=== PATIENT | male | born 1930 | race Caucasian/White ===

== ENCOUNTER 2020-07-02 23:38 | Inpatient (IN) | payer MEDICARE ==
[2020-07-03 00:44] LABS: #Eosinphils 0.3 thou/uL (0.0-0.7); #Lymphocytes 1.3 thou/uL (1.20-3.40); #Monocytes 0.7 thou/uL (0.11-0.59); #Neutrophils 3.6 thou/uL (1.40-6.50); %Basophils 0.2 % (0.0-1.0); %Eosinophils 4.6 % (0.0-10.0); %Lymphocytes 22.5 % (21.0-51.0); %Monocytes 11.7 % (0.0-10.0); %Neutrophils 60.9 % (42.0-75.0); Hemoglobin 12.4 g/dL (14.0-18.0); Mean Corpuscular HGB CONC 32.5 g/dL (32.0-36.0); Mean Corpuscular Hemoglobin 30.9 pg (27.0-31.0); Mean Platelet Volume 7.8 fL (7.4-10.4); Platelet Count 159 thou/uL (130-400); Red Blood Cell (RBC) Count 4.02 mill/uL (4.70-6.10); White Blood Cell (WBC) Count 5.8 thou/uL (4.8-10.8)
[2020-07-03 00:50] LABS: INR-International Normal Ratio 1.2; PTT 27.7 sec (22.9-36.1); Prothrombin Time 15.1 sec (12.0-14.7)
[2020-07-03 01:09] LABS: ALT (SGPT) 157 U/L (8-55); AST (SGOT) 105 U/L (5-34); Albumin 3.4 g/dL (3.4-4.8); Alkaline Phosphatase 113 U/L (40-110); Anion Gap 13 mmol/L (10-20); BUN (Urea Nitrogen) 36 mg/dL (8.4-25.7); Bilirubin, Total 0.4 mg/dL (0.2-1.2); Calc. Creatinine Clearance 0 mL/min (70-130); Calcium 8.5 mg/dL (7.8-10.44); Carbon Dioxide 20 mmol/L (23-31); Chloride 111 mmol/L (98-107); Estimated GFR-MDRD 36; Globulin 2.6 g/dL (2.4-3.5); Glucose 95 mg/dL (83-110); Potassium 4.8 mmol/L (3.5-5.1); Sodium 139 mmol/L (136-145)
[2020-07-03 01:11] LABS: Acetaminophen Less than 6.0 mcg/mL (10.0-30.0); Alcohol Less than 10 mg/dL (Less than 10); CK (CPK) 143 U/L (30-200); Salicylate Less than 8.0 mg/dL (15.0-30.0)
--- NOTE | 2020-07-03 01:39 | PDOC.FPRHP ---
- History PMHx: PSHx: FHx: Social: - Vital signs BP: [] HR: [] RR: [] Tmax: [] Pox: []% on [] Wt: [] FMR H&P: Results - Labs Result Diagrams: 07/03/20 00:33 07/03/20 00:33 Lab results: WBC 5.8 thou/uL (4.8-10.8) 07/03/20 00:33 Hgb 12.4 g/dL (14.0-18.0) L 07/03/20 00:33 Hct 38.2 % (42.0-52.0) L 07/03/20 00:33 MCV 95.0 fL (78.0-98.0) 07/03/20 00:33 Plt Count 159 thou/uL (130-400) 07/03/20 00:33 Neutrophils % 60.9 % (42.0-75.0) 07/03/20 00:33 Sodium 139 mmol/L (136-145) 07/03/20 00:33 Potassium 4.8 mmol/L (3.5-5.1) 07/03/20 00:33 Chloride 111 mmol/L (98-107) H 07/03/20 00:33 Carbon Dioxide 20 mmol/L (23-31) L 07/03/20 00:33 BUN 36 mg/dL (8.4-25.7) H 07/03/20 00:33 Creatinine 1.80 mg/dL (0.7-1.3) H 07/03/20 00:33 Glucose 95 mg/dL (83-110) 07/03/20 00:33 Lactic Acid 0.9 mmol/L (0.5-2.2) 07/03/20 00:33 Calcium 8.5 mg/dL (7.8-10.44) 07/03/20 00:33 Total Bilirubin 0.4 mg/dL (0.2-1.2) 07/03/20 00:33 AST 105 U/L (5-34) H 07/03/20 00:33 ALT 157 U/L (8-55) H 07/03/20 00:33 Alkaline Phosphatase 113 U/L (40-110) H 07/03/20 00:33 Creatine Kinase 143 U/L (30-200) 07/03/20 00:33 Serum Total Protein 6.0 g/dL (5.8-8.1) 07/03/20 00:33 Albumin 3.4 g/dL (3.4-4.8) 07/03/20 00:33 FMR H&P: Upper Level - Plan Date/Time: 07/03/20 0139 I, [], have evaluated this patient and agree with findings/plan as outlined by psychology intern resident. Pertinent changes/additions are listed here.
[2020-07-03 01:42] LABS: CKMB 18.2 ng/mL (0-6.6)
[2020-07-03] MEDS ORDERED: Aspirin Chewable 81 MG TAB ONE (01:46)
[2020-07-03] MEDS ORDERED: Heparin 25,000 units/D5W 500 ML ONE (01:46)
[2020-07-03] MEDS ORDERED: Heparin 10,000 UNITS/ 10 ML VIAL ONE (01:54)
[2020-07-03] MEDS ORDERED: Morphine 2 MG/ML VIAL SLOW IVP PRN (03:43)
[2020-07-03] MEDS ORDERED: Nitroglycerin 0.4 MG TAB (25 Tab Bottle) SL PRN (03:43)
[2020-07-03] MEDS ORDERED: Acetaminophen 325 MG TAB PO PRN (03:43)
[2020-07-03] MEDS ORDERED: HYDROcodone/Acetaminophen 5/325 mg Tablet PO PRN (03:43)
[2020-07-03] MEDS ORDERED: Heparin 25,000 units/D5W 500 ML IVPB SCH (03:45)
--- NOTE | 2020-07-03 03:50 | PDOC.HHP ---
Hospitalist HPI - History of Present Illness syncope History of Present Illness: history is limited, patient was given to resident team initially, after a few hours transfer to me. ER doctor and nurse that saw patient not present at this time to give me report. patient is a poor historian Case of an 89-year-old male [facility] resident with a pmhx of cad, hx of stroke, hyperlipidemia and ckd who comes after a syncopal episode. apparently patient was on his usual state of health until today when he had an unwitnessed fall. personal heard a thud and found the patient down. patient refered to me he was trying to pee before passing out. at arrival to the ED patient was only minimally responsive to pain. upon f/u patient had seemed to be back to normal alert ox3. patient denies any chest pain palpitation diaphoresis fever dysuria or diarrhea. he is not sure why he was sent to hospital. at ED evaluation patient with elevated troponin for which hospitalist was called for further evaluation and management. patient with a lesion to L side of face from an apparent fall 1wk ago Hospitalist ROS - Review of Systems All other systems reviewed; all pertinent +/- noted in HPI/Subj - Exam General Appearance: NAD, awake alert Eye: PERRL, anicteric sclera ENT: no oropharyngeal lesions, moist mucosa Neck: supple, symmetric, no JVD Heart: RRR, no murmur, no gallops Respiratory: CTAB, no wheezes, no rales Gastrointestinal: soft, non-tender, non-distended Extremities: no cyanosis, no clubbing, no edema Skin: normal turgor, no lesions, no rashes Neurological: cranial nerve grossly intact, normal sensation to touch, no weakness Musculoskeletal: normal tone, normal strength, no muscle wasting Psychiatric: normal affect, normal behavior, A&O x 3 Hospitalist Results - Labs Result Diagrams: 07/03/20 00:33 07/03/20 00:33 Lab results: WBC 5.8 thou/uL (4.8-10.8) 07/03/20 00:33 Hgb 12.4 g/dL (14.0-18.0) L 07/03/20 00:33 Hct 38.2 % (42.0-52.0) L 07/03/20 00:33 MCV 95.0 fL (78.0-98.0) 07/03/20 00:33 Plt Count 159 thou/uL (130-400) 07/03/20 00:33 Neutrophils % 60.9 % (42.0-75.0) 07/03/20 00:33 Sodium 139 mmol/L (136-145) 07/03/20 00:33 Potassium 4.8 mmol/L (3.5-5.1) 07/03/20 00:33 Chloride 111 mmol/L (98-107) H 07/03/20 00:33 Carbon Dioxide 20 mmol/L (23-31) L 07/03/20 00:33 BUN 36 mg/dL (8.4-25.7) H 07/03/20 00:33 Creatinine 1.80 mg/dL (0.7-1.3) H 07/03/20 00:33 Glucose 95 mg/dL (83-110) 07/03/20 00:33 Lactic Acid 0.9 mmol/L (0.5-2.2) 07/03/20 00:33 Calcium 8.5 mg/dL (7.8-10.44) 07/03/20 00:33 Total Bilirubin 0.4 mg/dL (0.2-1.2) 07/03/20 00:33 AST 105 U/L (5-34) H 07/03/20 00:33 ALT 157 U/L (8-55) H 07/03/20 00:33 Alkaline Phosphatase 113 U/L (40-110) H 07/03/20 00:33 Creatine Kinase 143 U/L (30-200) 07/03/20 00:33 CK-MB (CK-2) 18.2 ng/mL (0-6.6) H* 07/03/20 00:33 Troponin I 1.866 ng/mL (< 0.028) H* 07/03/20 00:33 Serum Total Protein 6.0 g/dL (5.8-8.1) 07/03/20 00:33 Albumin 3.4 g/dL (3.4-4.8) 07/03/20 00:33 Hospitalist H&P A/P - Problem (1) NSTEMI (non-ST elevated myocardial infarction) Code(s): I21.4 - NON-ST ELEVATION (NSTEMI) MYOCARDIAL INFARCTION Status: Acute (2) Syncope Code(s): R55 - SYNCOPE AND COLLAPSE Status: Acute (3) CAD (coronary artery disease) Code(s): I25.10 - ATHSCL HEART DISEASE OF [place] CORONARY ARTERY W/O ANG PCTRS Status: Acute (4) HLD (hyperlipidemia) Code(s): E78.5 - HYPERLIPIDEMIA, UNSPECIFIED Status: Acute - Plan Plan: 89y/o male who was recently transfer to my service for evaluation of nstemi and syncope nstemi - no st elevation on ekg - elevated troponin 1.8 continue to follow trned - started on hep drip after negative trauma work up - asa 325 - beta agusto - holding acei due to borderline low bp - cardiology consulted - on statin - cxr ordered, not currently present during my evaluation - cardiac monitoring syncope - continue to trend troponins - f/u tsh bnp - 2d echo -interview PPM for possible arrythmia -r/o non cardiogenic causes of syncope suck as infection w cxr and u/a HLD - continue statin ckd - continue to monitor renal function, no previous labs to compare
[2020-07-03 04:19] LABS: Hemoglobin A1c 5.4 % (4.0-6.0)
[2020-07-03 04:26] LABS: Hemoglobin 13.6 g/dL (14.0-18.0); Platelet Count 127 thou/uL (130-400)
[2020-07-03] MEDS ORDERED: Sodium Chloride 0.9% 1,000 ML IV SCH (04:30)
[2020-07-03] MEDS ORDERED: Sodium Chloride 0.9% 500 ML IV SCH (04:30)
[2020-07-03 04:36] LABS: Troponin I 3.697 ng/mL (< 0.028)
[2020-07-03] MEDS: Sodium Chloride 0.9% 1,000 ML IV SCH ×2 (05:08→23:44)
[2020-07-03 05:11] VITALS: BMI 21.7
[2020-07-03 07:27] LABS: PTT 151.6 sec (22.9-36.1)
[2020-07-03 07:43] LABS: Troponin I 6.221 ng/mL (< 0.028)
--- NOTE | 2020-07-03 08:32 | CT ---
PRELIMINARY REPORT/[facility]/AFTER HOURS PROCEDURE CT HEAD WITHOUT INTRAVENOUS CONTRAST: CT CERVICAL SPINE WITHOUT INTRAVENOUS CONTRAST: CLINICAL HISTORY: Fall. Unresponsive. TECHNIQUE: Axial computed tomography images of the head/brain and the cervical spine without intravenous contras t. COMPARISON: None provided. FINDINGS: CT HEAD: There is moderate generalized prominence of the ventricles and subarachnoid spaces. A moderate amount of low density is present in the cerebral hemisphere white matter. In some areas, t his extends into the gyri, with associated focal atrophy, compatible with encephalomalacia, most evid ent in the parietal regions. No areas of low density strongly suggestive of an acute ischemic event a re seen on either side. There is minimal basal ganglia calcification. No mass-effect or evidence of acute intracranial hemorrhage is seen. On bone windows, no fractures are seen. Orbits are negative. CT CERVICAL SPINE: There are 7 cervical vertebrae. Straightening is seen on the sagittal reformats. The vertebral body heights are maintained. Pedicles, transverse and spinous processes are intact. There is multilevel disc space narrowing with sclerosis and marginal hypertrophic change. Modest mul tilevel central spinal stenosis is present, most evident at C5-C6 (8 mm). There is moderate bilateral multilevel hypertrophic degenerative change of the facets. Moderate mult ilevel bilateral foraminal narrowing is present. Minimal subluxations are present at several levels, most evident anteriorly at the C2-C3 level (3 mm), compatible with a degenerative etiology. The precervical soft tissues are normal. IMPRESSION: CT HEAD: 1. Moderate generalized atrophy and areas of low-density are present on both signs, compatible with c hronic small vessel ischemic disease in the white matter, an old peripheral infarcts in the periphery of both cerebral hemispheres. 2. No strong evidence of an acute ischemic infarct is seen. 4. No acute intracranial abnormality. CT CERVICAL SPINE: 1. No fractures, or other acute osseous abnormality. 2. Moderately advanced multilevel degenerative change involving both the disks in the facets. ELECTRONICALLY SIGNED BY: Jerry Gibbons MD Jul 03, 2020 12:32:57 AM CDT This report is intended for review by the ordering physician only, in accordance of law. If you recei ve this report in error, please call [facility] at [phone]. FINAL REPORT CT BRAIN NONCONTRAST: HISTORY: An 89-year-old male with altered mental status. COMPARISON: None available. FINDINGS: Numerous moderate sized and small regions of encephalomalacia and gliosis in bilateral parietal upper -posterior frontal and bilateral parieto-occipital junctions. Several tiny old lacunar infarctions in bilateral cerebellar hemispheres. Diffuse severe chronic ischemic white matter changes and diffuse brain atrophy. Ventriculomegaly, probably on the basis of atrophy. No acute intraaxial or extraaxial hemorrhage, mass effect, midline shift, extraaxial fluid collection or calvarial fracture. The visualized paranasal sinuses and bilateral tympanomastoid cavities are grossly clear. IMPRESSION: 1. No acute intracranial findings. 2. Multiple old infarctions in the bilateral cerebrum, plus tiny old lacunar infarctions in the bilat eral cerebellar hemispheres. 3. Involutional changes and severe chronic ischemic white matter changes. 4. Agree with preliminary report by [facility]. DONELL R CODE QA POS: GONZALES
--- NOTE | 2020-07-03 08:47 | CT ---
PRELIMINARY REPORT/[facility]/AFTER HOURS PROCEDURE CT HEAD WITHOUT INTRAVENOUS CONTRAST: CT CERVICAL SPINE WITHOUT INTRAVENOUS CONTRAST: CLINICAL HISTORY: Fall. Unresponsive. TECHNIQUE: Axial computed tomography images of the head/brain and the cervical spine without intravenous contras t. COMPARISON: None provided. FINDINGS: CT HEAD: There is moderate generalized prominence of the ventricles and subarachnoid spaces. A moderate amount of low density is present in the cerebral hemisphere white matter. In some areas, t his extends into the gyri, with associated focal atrophy, compatible with encephalomalacia, most evid ent in the parietal regions. No areas of low density strongly suggestive of an acute ischemic event a re seen on either side. There is minimal basal ganglia calcification. No mass-effect or evidence of acute intracranial hemorrhage is seen. On bone windows, no fractures are seen. Orbits are negative. CT CERVICAL SPINE: There are 7 cervical vertebrae. Straightening is seen on the sagittal reformats. T he vertebral body heights are maintained. Pedicles, transverse and spinous processes are intact. Ther e is multilevel disc space narrowing with sclerosis and marginal hypertrophic change. Modest multilev el central spinal stenosis is present, most evident at C5-C6 (8 mm). There is moderate bilateral multilevel hypertrophic degenerative change of the facets. Moderate multi level bilateral foraminal narrowing is present. Minimal subluxations are present at several levels, m ost evident anteriorly at the C2-C3 level (3 mm), compatible with a degenerative etiology. The precervical soft tissues are normal. IMPRESSION: CT HEAD: 1. Moderate generalized atrophy. 2. Areas of low-density are present on both signs, compatible with chronic small vessel ischemic dise ase in the white matter, an old peripheral infarcts in the periphery of both cerebral hemispheres. 3. No strong evidence of an acute ischemic infarct is seen. 4. No acute intracranial abnormality. CT CERVICAL SPINE: 1. No fractures, or other acute osseous abnormality. 2. Moderately advanced multilevel degenerative change involving both the disks in the facets. ELECTRONICALLY SIGNED BY: Jerry Gibbons MD Jul 03, 2020 12:32:57 AM CDT This report is intended for review by the ordering physician only, in accordance of law. If you recei ve this report in error, please call [facility] at [phone]. FINAL REPORT EMERGENT AFTER HOURS CT CERVICAL SPINE NONCONTRAST: 07/03/20 12:06 a.m. HISTORY: 89-year-old male status post acute cervical trauma from fall. FINDINGS: There are no jumped or perched facets. There is no evidence of acute fracture. The vertebral body h eights are maintained. There is no prevertebral soft tissue swelling. There are degenerative disc c hanges and facet osteoarthrosis. Agree with preliminary report by [facility]. IMPRESSION: 1) Cervical spondylosis. 2) No evidence of acute fracture or acute traumatic subluxation. mishel [] CODE QA POS: GONZALES
[2020-07-03] MEDS ORDERED: Lorazepam 2 MG/ML VIAL SLOW IVP PRN (09:53)
--- NOTE | 2020-07-03 10:01 | PDOC.HOSPP ---
- Subjective Encounter Date: 07/03/20 Encounter Time: 10:00 Subjective: Mr. Ingram was seen today in follow-up elevated tropinins, and new onset seizure. Patient was moved to the [facility] due to tonic clonic activity. He is now awake, but non-verbal. - Objective Vital Signs & Weight: Vital Signs (12 hours) Temp Pulse Resp BP Pulse Ox 07/03/20 07:35 97.6 F 80 18 102/57 L 95 07/03/20 04:45 98.7 F 108 H 18 107/57 L 98 Weight Weight 146 lb 11.2 oz Result Diagrams: 07/03/20 03:45 07/03/20 00:33 Additional Labs: Accuchecks 07/03/20 00:03 POC Glucose 85 Hospitalist ROS - Medication Medications: Active Medications Generic Name Dose Route Start Last Admin Trade Name Freq PRN Reason Stop Dose Admin Sodium Chloride 1,000 mls @ 50 mls/hr 07/03/20 04:00 07/03/20 05:08 Normal Saline 0.9% IV 1,000 mls .Q20H DAYNA Administration - Exam Eye: PERRL, anicteric sclera Heart: RRR, no murmur, no gallops, no rubs, normal peripheral pulses Respiratory: CTAB ( with the occasional rhonchi) Gastrointestinal: soft, non-tender, non-distended, normal bowel sounds, no palpable masses, no hepatomegaly Extremities: no cyanosis, no edema Neurological: cranial nerve grossly intact, no new deficit (no focal deficits) Hosp A/P (1) New onset seizure Code(s): R56.9 - UNSPECIFIED CONVULSIONS Status: Acute (2) CAD (coronary artery disease) Code(s): I25.10 - ATHSCL HEART DISEASE OF [place] CORONARY ARTERY W/O ANG PCTRS Status: Acute (3) HLD (hyperlipidemia) Code(s): E78.5 - HYPERLIPIDEMIA, UNSPECIFIED Status: Acute (4) NSTEMI (non-ST elevated myocardial infarction) Code(s): I21.4 - NON-ST ELEVATION (NSTEMI) MYOCARDIAL INFARCTION Status: Acute (5) Syncope Code(s): R55 - SYNCOPE AND COLLAPSE Status: Acute (6) CVA (cerebrovascular accident) Code(s): I63.9 - CEREBRAL INFARCTION, UNSPECIFIED Status: Chronic - Plan * New Onset Seizure- I spoke with the patient's son over the phone. He does not have a history of seizures. * Will load him with Keppra, and continue IV Keppra until Neurology evaluation * Place him on seizure precautions * NSTEMI- His son tells me he had elevated troponins at [facility] 2 weeks ago. Will request those records * Continue aspirin, Metoprolol, Heparin, and Lipitor * Echo is pending
--- NOTE | 2020-07-03 10:04 | RAD ---
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 There is no evidence of airspace density, cardiomegaly, p ulmonary edema, or pneumothorax. The lateral costophrenic angles are not effaced. There are minimally displaced fractures of the posterior aspects of the left third and fourth ribs. There is a dual-lead left subclavian pacemaker. IMPRESSION: 1) acute, traumatic, minimally displaced left third and fourth rib fractures. 2) No acute pulmonary findings. 3) ectasia of thoracic aorta.
[2020-07-03] MEDS: Aspirin 325 mg Enteric Coated Tablet PO SCH (10:06)
[2020-07-03] MEDS: Metoprolol Tartrate 25 MG TAB PO SCH ×2 (10:06→20:06)
[2020-07-03] MEDS ORDERED: levETIRAcetam 1,250 MG in Sodium Chloride 0.9% 100 ML IVPB SCH (11:00)
[2020-07-03 12:12] LABS: SARS-CoV-2 MS2 Positive; SARS-CoV-2 N Gene Negative; SARS-CoV-2 S Gene Negative; SARS-CoV-2 by NAA Not Detected (NotDetected); SARS-CoV-2 orf1ab Negative
--- NOTE | 2020-07-03 15:51 | CON ---
DATE OF CONSULTATION: HISTORY OF PRESENT ILLNESS: Jeancarlos Ingram is an 89-year-old gentleman from the shelter, who sustained a fall yesterday, brought into the ER at 2300 hours. His saturations are 90% on room air, respirations 18, pulse 93, blood pressure 94/75. This morning, he proceeded to have another seizure activity and transferred to the MICU. Post ictal, he is awake and responsive. Denies any pain or difficulty breathing. He has a bruise on his left side of his forehead. PAST MEDICAL HISTORY: Myocardial infarction, hyperlipidemia, previous CVA, renal failure. PAST SURGICAL HISTORY: Including a pacemaker. HOME MEDICATIONS: Include: 1. B12. 2. Lipitor 40. 3. Aspirin. 4. Tylenol. 5. He has now received Keppra and Ativan. REVIEW OF SYSTEMS: Otherwise, unremarkable. PHYSICAL EXAMINATION: VITAL SIGNS: Temperature 97, pulse 80, respirations 18, saturations 90% on room air, blood pressure 102/57. CHEST: No wheezing. No crackles. CARDIAC: Normal S1 and S2. No gallops. ABDOMEN: No masses. LABORATORY DATA: White count 5000, H and H are unremarkable, platelet count is normal. His creatinine is 1.8, BUN is 36. CT head was done, which was negative. Troponins elevated at 6.2. ASSESSMENT: 1. Apparently, new-onset seizures. 2. Previous cerebrovascular accident. 3. Abnormal troponin. 4. Azotemia. PLAN: Pulmonary hope, I do not have much to offer at this stage. Input from Neurology and Cardiology. Pulmonary is going to follow while in the MICU. Consultation note, 70 minutes, 50% direct patient care. Job ID: [id number]
[2020-07-03 16:26] LABS: Bacteria/HPF None Seen HPF (None Seen); Bilirubin Negative (Negative); Blood, Urine Negative (Negative); Clarity Clear (Clear); Glucose, Urine (Dipstick) Normal (Negative); Ketone, Urine Negative (Negative); Leukocyte Negative Leu/uL (Negative); Nitrite Negative (Negative); Protein, Urine (Dipstick) 20 mg/dL (Neg-Trace); RBC/HPF 0-3 HPF (0-3); Specific Gravity, Urine 1.017 (1.002-1.036); Squamous Epithelial None Seen HPF (0-3); Urobilinogen Normal mg/dL (Less than 2); WBC/HPF 0-3 HPF (0-3)
[2020-07-03 16:27] LABS: Urine Culture Reflex No No
--- NOTE | 2020-07-03 17:56 | CON ---
DATE OF CONSULTATION: 07/03/2020 INDICATION FOR CONSULTATION: An 89-year-old patient with abnormal cardiac enzymes and history of possible syncope. HISTORY OF PRESENT ILLNESS: This is a very unfortunate 89-year-old gentleman who apparently resides in a long-term apparently had an unwitnessed fall yesterday. It was heard a thud and he was found on the floor. He was brought to the emergency room. He has had previous falls in the past. He has had lacerations to the left side of his face with some sutures in place and at this time while after being admitted to the telemetry floor, also was noted to have actually the elevated cardiac enzymes that continued to increase, and he was then transferred to the [facility] at which time, he then suffered a seizure. At this time, he is confused and apparently obviously has dementia. He has a pacemaker in place. He has underlying atrial fibrillation. He has had apparently CVAs in the past. He has chronic kidney disease, hypertension. The pacemaker is pacing occasionally. He is a very poor historian and the information is found from the reading of the medical records. There is no family member available and very little information is obtained. There is just the records from the long-term showing some of his diagnoses. At this time, he is not complaining of any pain. His EKG shows atrial fibrillation with a right bundle-branch block and occasional pacing. No acute ST-segment changes were noted. PAST MEDICAL HISTORY: Significant for pacemaker insertion, uncertain as to what kind of pacemaker this is. We will try to interrogate the device to see whether or not he has any abnormalities with the pacemaker and whether or not he has had any significant arrhythmias other than the right bundle-branch block and the atrial fibrillation, but does appear to be pacing. I do not see exactly when it was placed. Apparently, he has also been seen at [facility], perhaps they have some information on this patient. His primary doctor is Dr. Shyam Cruz. This was noted from review of the records and he has also been seen at [facility] and [place]. We will try to obtain some records to see whether or not there is any other information that can be obtained. FAMILY HISTORY: Unobtainable and noncontributory. REVIEW OF SYSTEMS: Not obtainable. SOCIAL HISTORY: Also, he resides in a long-term facility. PHYSICAL EXAMINATION: GENERAL: Reveals an elderly gentleman, who is obviously confused. He thinks he is in [place]. VITAL SIGNS: Blood pressure 102/57, his heart rate is in the 80s and is irregular, respiratory rate is 18. He is afebrile. HEENT: Shows head to have some trauma from previously on the left side of his face from falling. He also has some sutures over the left eyebrow area. NECK: Carotid pulses are present. I cannot hear any significant bruits. CHEST: Actually is clear. He does have some tenderness noted on the left side. He has a well-healed incision over pacemaker that has been placed obviously sometime ago. Otherwise, no significant abnormality on the chest. CARDIOVASCULAR: Reveals an irregular rhythm at this time. He has no significant murmurs. He has a very soft systolic murmur at the apex. ABDOMEN: Soft and nontender. Positive bowel sounds are present. EXTREMITIES: Show no clubbing, cyanosis, or edema. I cannot palpate pedal pulses. Popliteal pulses are normal. He does have some stiffness of the lower legs and decreased pulses were noted. NEUROLOGIC: Obviously, the patient is confused. He does not appear to have any gross focal motor deficits at this time, however. LABORATORY DATA: Shows a hemoglobin of 13.6, WBC of 5.8, platelet count 127,000. Sodium was 139, BUN was 36 with a creatinine of 1.8, his blood sugar is about 95. Troponin I originally was 1.86, it is now increased up to 6.2. MB of 18.2. AST was 105, and ALT of 157. He had a CT of the brain, which shows chronic ischemic changes. EKG shows atrial fibrillation with occasional ventricular pacing. No acute changes otherwise were noted. IMPRESSION: 1. [id number] elevation myocardial infarction likely in this gentleman who we do not have any previous cardiac history except that he has a pacemaker, uncertain whether or not he has coronary artery disease. We will try to obtain records from [facility] to see what kind of evaluation has been performed in the past, but would continue to trend these enzymes. He is not a candidate to go to the cardiac lab scientist at this time due to his significant dementia. He is not having any complaints of chest pain. EKG does not show any acute ST-segment elevation. 2. History of pacemaker insertion. Again, we will try to interrogate the device. 3. History of chronic kidney disease. Creatinine is 1.8. This will be followed by the primary care service and Nephrology if necessary. 4. Dyslipidemia. 5. Hypertension, this is under good control. 6. He does have history of dementia. 7. History of cerebrovascular accidents in the past. At this time, we would be more than happy to continue to follow the patient with you, but discussion should be made with the patient and family as to whether or not the patient should be a DNR. We will continue to trend the enzymes, but at this time, the patient is not a candidate for bypass surgery or cardiac catheterization. ADDENDUM: This gentleman also one of his diagnoses would be seizure disorder. This may be new onset. He may need to be seen by the neurologist and this also may be the reason of his previous falls unless he has had any witnessed falls in the past that were not associated with seizures. This may also be the reason for his slight elevation of cardiac enzymes, but most likely indicates a [id number] elevation myocardial infarction as the reason for the elevated enzymes. Job ID: [id number]
[2020-07-03] MEDS: Heparin 10,000 UNITS/ 10 ML VIAL SLOW IVP SCH (18:50)
[2020-07-03] MEDS: Atorvastatin Calcium 40 MG TAB PO SCH (20:05)
[2020-07-03 23:44] LABS: PTT 183.4 sec (22.9-36.1)
[2020-07-04 02:41] LABS: ALT (SGPT) 115 U/L (8-55); AST (SGOT) 74 U/L (5-34); Albumin 3.1 g/dL (3.4-4.8); Alkaline Phosphatase 110 U/L (40-110); Anion Gap 14 mmol/L (10-20); BUN (Urea Nitrogen) 30 mg/dL (8.4-25.7); Bilirubin, Total 0.5 mg/dL (0.2-1.2); Calc. Creatinine Clearance 30 mL/min (70-130); Calcium 8.8 mg/dL (7.8-10.44); Carbon Dioxide 18 mmol/L (23-31); Cardiac Risk 2.2 (Less than 4.5); Chloride 113 mmol/L (98-107); Cholesterol 78 mg/dl (< 200 Desired); Estimated GFR-MDRD 41; Globulin 2.9 g/dL (2.4-3.5); Glucose 83 mg/dL (83-110); HDL Cholesterol 36 mg/dL (>60 Neg Risk); LDL Cholesterol, Calculated 32 mg/dL; Potassium 4.5 mmol/L (3.5-5.1); Sodium 140 mmol/L (136-145); Triglycerides 48 mg/dL (Less than 150)
--- NOTE | 2020-07-04 08:37 | PDOC.HOSPP ---
- Subjective Encounter Date: 07/04/20 Encounter Time: 08:35 Subjective: Mr. Ingram was seen today in follow-up of seizure and NSTEMI. He is awake and alert today. He knows he is in the hospital, but when asked why, he says " to clean me up". He knows the month and the year. - Objective Vital Signs & Weight: Vital Signs (12 hours) Temp Pulse Ox 07/04/20 08:00 98 07/04/20 07:24 98.4 F 07/04/20 03:38 97.2 F L 07/03/20 23:39 97.6 F Weight Weight 146 lb 11.2 oz Most Recent Monitor Data Heart Rate from ECG 100 NIBP 125/78 NIBP BP-Mean 93 Respiration from ECG 12 SpO2 99 I&O: 07/03/20 07/04/20 07/05/20 06:59 06:59 06:59 Intake Total 1510 Output Total 900 Balance 610 Result Diagrams: 07/03/20 03:45 07/04/20 01:51 Hospitalist ROS - Medication Medications: Active Medications Generic Name Dose Route Start Last Admin Trade Name Freq PRN Reason Stop Dose Admin Aspirin 325 mg 07/03/20 09:00 07/03/20 10:06 Aspirin 325 Mg Enteric Coated Tablet PO Not Given DAILY DAYNA Atorvastatin Calcium 40 mg 07/03/20 21:00 07/03/20 20:05 Atorvastatin Calcium 40 Mg Tab PO Not Given HS DAYNA Heparin Sodium (Porcine) 0 units 07/03/20 03:45 07/03/20 18:50 Heparin 10,000 Units/ 10 Ml Vial SLOW IVP 1,995 units ASDIR DAYNA Administration Protocol Sodium Chloride 1,000 mls @ 50 mls/hr 07/03/20 04:00 07/03/20 23:44 Normal Saline 0.9% IV 1,000 mls .Q20H DAYNA Administration Levetiracetam 500 mg/ Device 100 mls @ 200 mls/hr 07/03/20 21:00 07/03/20 20:06 IVPB 100 mls BID DAYNA Administration Metoprolol Tartrate 12.5 mg 07/03/20 09:00 07/03/20 20:06 Metoprolol Tartrate 25 Mg Tab PO Not Given BID DAYNA - Exam Eye: PERRL, anicteric sclera Heart: RRR, no murmur, no gallops, no rubs, normal peripheral pulses Respiratory: CTAB (+ rhonchi scattered) Gastrointestinal: soft, non-tender, non-distended, normal bowel sounds, no palpable masses, no hepatomegaly Extremities: no cyanosis, no edema Neurological: no focal deficits (muscle strength is 5/5 in both upper and lower extremities) Musculoskeletal: normal tone, normal strength Hosp A/P (1) New onset seizure Code(s): R56.9 - UNSPECIFIED CONVULSIONS Status: Acute (2) CAD (coronary artery disease) Code(s): I25.10 - ATHSCL HEART DISEASE OF [place] CORONARY ARTERY W/O ANG PCTRS Status: Acute (3) HLD (hyperlipidemia) Code(s): E78.5 - HYPERLIPIDEMIA, UNSPECIFIED Status: Acute (4) NSTEMI (non-ST elevated myocardial infarction) Code(s): I21.4 - NON-ST ELEVATION (NSTEMI) MYOCARDIAL INFARCTION Status: Acute (5) Syncope Code(s): R55 - SYNCOPE AND COLLAPSE Status: Acute (6) CVA (cerebrovascular accident) Code(s): I63.9 - CEREBRAL INFARCTION, UNSPECIFIED Status: Chronic - Plan * New Onset Seizure- continue Keppra IV, and await Neurology evaluation * Continue Seizure precautions * Will go ahead an order EEG * NSTEMI- Continue aspirin, Metoprolol, Heparin, and Lipitor * Echo findings noted * Cardiology evaluation appreciated- patient is not a good candidate for for cardiac cath due to dementia, and renal insufficiency * Syncope- he may have been having seizure- will await Neurology evaluation
[2020-07-04] MEDS: Metoprolol Tartrate 25 MG TAB PO SCH ×2 (10:13→20:51)
[2020-07-04] MEDS: Aspirin 325 mg Enteric Coated Tablet PO SCH (10:13)
--- NOTE | 2020-07-04 10:24 | PRG ---
DATE OF SERVICE: 07/04/2020 SUBJECTIVE: Jeancarlos Ingram remains encephalopathic. No longer seizing. OBJECTIVE: VITAL SIGNS: Temperature 98, saturations are 90% on room air, and blood pressure 125/78. CHEST: No wheezing. No crackles. CARDIAC: Normal S1 and S2. No gallops. ABDOMEN: Soft. LABORATORY DATA: Creatinine 1.5. PTT is 59. ASSESSMENT AND PLAN: Myocardial infarction, new onset seizures, cerebrovascular accident, coronary artery disease, and azotemia. Pulmonary hope, continue cardiac care. Continue to follow while he is in the MICU. Job ID: [id number]
--- NOTE | 2020-07-04 13:01 | CON ---
NEUROLOGY CONSULTATION DATE OF CONSULTATION: 07/04/2020 REASON FOR CONSULTATION: Altered mental status. HISTORY OF PRESENT ILLNESS: Mr. Jeancarlos Ingram is an 89-year-old male with history significant for coronary artery disease, prior stroke, hypertension, chronic kidney disease, and dementia, who is a resident of [facility], presented with an episode of altered mental status. Apparently, the nursing staff heard a noise and then found him on the floor. There was some concern about seizure activity. On arrival to the emergency room, he was minimally responsive to pain, but then he came back to normal and he was alert and oriented to person, place, and time. The patient denies any nausea, vomiting, headache, chest pain, abdominal pain, or recent illness. He does have some baseline memory issues and does not know why he is in the hospital. REVIEW OF SYSTEMS: All 10 systems were reviewed and were negative except the pertinent positives and negatives mentioned in the HPI. PAST MEDICAL HISTORY: Coronary artery disease, prior stroke, hyperlipidemia, chronic kidney disease. PAST SURGICAL HISTORY: Not significant. FAMILY HISTORY: Not significant. ALLERGIES: NO KNOWN DRUG ALLERGIES. SOCIAL HISTORY: He is [place] resident. No history of drug and alcohol abuse. Vital Signs & Weight: Vital Signs (12 hours) Temp Pulse Ox 07/04/20 08:00 98 07/04/20 07:24 98.4 F 07/04/20 03:38 97.2 F L 07/03/20 23:39 97.6 F Weight Weight 146 lb 11.2 oz Most Recent Monitor Data Heart Rate from ECG 100 NIBP 125/78 NIBP BP-Mean 93 Respiration from ECG 12 SpO2 99 I&O: 07/03/20 07/04/20 07/05/20 06:59 06:59 06:59 Intake Total 1510 Output Total 900 Balance 610 Active Medications Generic Name Dose Route Start Last Admin Trade Name Freq PRN Reason Stop Dose Admin Aspirin 325 mg 07/03/20 09:00 07/03/20 10:06 Aspirin 325 Mg Enteric Coated Tablet PO Not Given DAILY DAYNA Atorvastatin Calcium 40 mg 07/03/20 21:00 07/03/20 20:05 Atorvastatin Calcium 40 Mg Tab PO Not Given HS DAYNA Heparin Sodium (Porcine) 0 units 07/03/20 03:45 07/03/20 18:50 Heparin 10,000 Units/ 10 Ml Vial SLOW IVP 1,995 units ASDIR DAYNA Administration Protocol Sodium Chloride 1,000 mls @ 50 mls/hr 07/03/20 04:00 07/03/20 23:44 Normal Saline 0.9% IV 1,000 mls .Q20H DAYNA Administration Levetiracetam 500 mg/ Device 100 mls @ 200 mls/hr 07/03/20 21:00 07/03/20 20:06 IVPB 100 mls BID DAYNA Administration Metoprolol Tartrate 12.5 mg 07/03/20 09:00 07/03/20 20:06 Metoprolol Tartrate 25 Mg Tab PO Not Given BID DAYNA PHYSICAL EXAMINATION: General Appearance: NAD, awake alert Eye: PERRL, anicteric sclera ENT: no oropharyngeal lesions, moist mucosa Neck: supple, symmetric, no JVD Heart: RRR, no murmur, no gallops Respiratory: CTAB, no wheezes, no rales Gastrointestinal: soft, non-tender, non-distended Extremities: no cyanosis, no clubbing, no edema Skin: normal turgor, no lesions, no rashes Neurological: Mental status, the patient is alert and oriented to person, place, and year. Speech has mild dysarthria. Cranial nerves 2 through 12 intact except 7, left facial droop and left hemiparesis. Motor, muscle tone and bulk are normal. Strength, moving all 4 extremities. Sensory, withdraws to nailbed pressure bilaterally. Cerebellar, did not cooperate with the testing. Gait deferred due to the patient's safety reason. DATA REVIEWED: I reviewed the MRI, which showed old encephalomalacia in the parietal lobe, but no acute intracranial pathology. CT of the cervical spine showed moderately advanced multilevel degenerative disease involving both the disk and the facets. Lab results: WBC 5.8 thou/uL (4.8-10.8) 07/03/20 00:33 Hgb 12.4 g/dL (14.0-18.0) L 07/03/20 00:33 Hct 38.2 % (42.0-52.0) L 07/03/20 00:33 MCV 95.0 fL (78.0-98.0) 07/03/20 00:33 Plt Count 159 thou/uL (130-400) 07/03/20 00:33 Neutrophils % 60.9 % (42.0-75.0) 07/03/20 00:33 Sodium 139 mmol/L (136-145) 07/03/20 00:33 Potassium 4.8 mmol/L (3.5-5.1) 07/03/20 00:33 Chloride 111 mmol/L (98-107) H 07/03/20 00:33 Carbon Dioxide 20 mmol/L (23-31) L 07/03/20 00:33 BUN 36 mg/dL (8.4-25.7) H 07/03/20 00:33 Creatinine 1.80 mg/dL (0.7-1.3) H 07/03/20 00:33 Glucose 95 mg/dL (83-110) 07/03/20 00:33 Lactic Acid 0.9 mmol/L (0.5-2.2) 07/03/20 00:33 Calcium 8.5 mg/dL (7.8-10.44) 07/03/20 00:33 Total Bilirubin 0.4 mg/dL (0.2-1.2) 07/03/20 00:33 AST 105 U/L (5-34) H 07/03/20 00:33 ALT 157 U/L (8-55) H 07/03/20 00:33 Alkaline Phosphatase 113 U/L (40-110) H 07/03/20 00:33 Creatine Kinase 143 U/L (30-200) 07/03/20 00:33 CK-MB (CK-2) 18.2 ng/mL (0-6.6) H* 07/03/20 00:33 Troponin I 1.866 ng/mL (< 0.028) H* 07/03/20 00:33 Serum Total Protein 6.0 g/dL (5.8-8.1) 07/03/20 00:33 Albumin 3.4 g/dL (3.4-4.8) 07/03/20 00:33 ASSESSMENT AND PLAN: (1) New onset seizure Code(s): R56.9 - UNSPECIFIED CONVULSIONS Status: Acute (2) CAD (coronary artery disease) Code(s): I25.10 - ATHSCL HEART DISEASE OF [place] CORONARY ARTERY W/O ANG PCTRS Status: Acute (3) HLD (hyperlipidemia) Code(s): E78.5 - HYPERLIPIDEMIA, UNSPECIFIED Status: Acute (4) NSTEMI (non-ST elevated myocardial infarction) Code(s): I21.4 - NON-ST ELEVATION (NSTEMI) MYOCARDIAL INFARCTION Status: Acute (5) Syncope Code(s): R55 - SYNCOPE AND COLLAPSE Status: Acute (6) CVA (cerebrovascular accident) Code(s): I63.9 - CEREBRAL INFARCTION, UNSPECIFIED Status: Chronic Mr. Jeancarlos Ingram is consulted for an episode of altered mental status with concern about seizure-like activity. He does have risk factors for stroke including prior stroke and dementia. Continue Keppra 500 mg twice daily until acute issues are resolved. Neuro checks every 4 hours. Observe seizure precaution. Ativan 2 mg IV for seizure greater than 2 minutes. EEG to rule out underlying cortical irritability, which may require adjustment of the medication. MRI to evaluate for seizure focus. 2D echocardiogram reviewed, results noted. The patient also has myocardial infarction, Cardiology is on board. Continue medical management per primary team and Cardiology. PT/OT/speech when stable. DVT prophylaxis. We will continue to follow. Thank you for the consult. Job ID: [id number] MTDD
--- NOTE | 2020-07-04 13:18 | PQF ---
CLINICAL DOCUMENTATION CLARIFICATION FORM: Dear Dr. NUNO YING Date: 07-04-20 Please exercise your independent, professional judgment in responding to the clarification form. Clinical indicators are provided on the bottom of this form for your review. Please check appropriate box(es): [ ] Acute Renal Failure (ARF) / Acute Kidney Injury (ALEX) [ ] Acute on Chronic Renal Failure, CKD stage [ X] CKD stage __3 [ ] Other diagnosis [ ] Unable to determine In addition, please specify: Present on Admission (POA): [ X ] Yes [ ] No [ ] Unable to determine For continuity of documentation, please document condition throughout progress notes and discharge summary. Thank You. To be completed by CDI/Coding staff for physician review: CLINICAL INDICATORS - SIGNS / SYMPTOMS / LABS / RESULTS AND LOCATION IN MR: GFR: 07-03-20: 36 07-04-20: 41 CREATININE: 07-03-20: 1.80 07-04-20: 1.59 BUN: 07-03-20: 36 07-04-20: [address] YING 07-04-20: PATIENT IS NOT A GOOD CANDIDATE CATH DUE TO DEMENTIA, AND RENAL INSUFFICIENCY : RISK FACTORS / RESULTS AND LOCATION IN MR: H&P 07-03-20: HX CAD, HX STROKE, HLP, CKD TREATMENTS / RESULTS AND LOCATION IN MR: H&P 07-03-20: CONTINUE TO MONITOR RENAL FUNCTION MAR: 07-03-20: NS IVF National Kidney Foundation Guidelines for CKD Staging Stage I Kidney damage with normal or increased GFR GFR > 90 Stage II Kidney damage with mildly decreased GFR GFR 60-89 Stage III Kidney damage with moderately decreased GFR GFR 30-59 Stage IV Kidney damage with severely decreased GFR GFR 16-29 Stage V Kidney failure GFR<15 ESRD End Stage Renal Disease On dialysis Acute Renal Failure/Acute Kidney Failure defined as: Increases in SCr by (>) 0.3 mg/dl within 48 hours OR- Increases in SCr by (>) 1.5 times baseline, known or presumed to have occurred within the prior 7 days OR- Urine volume < 0.5 ml/kg/hour for 6 hours (KDIGO supplement 2012 for RIFLE/JACKY criteria) CDS Signature: Vickie Rivera Phone #: [phone] Date: 07-04-20 This is a permanent part of the Medical Record MTDD
--- NOTE | 2020-07-04 13:38 | PQF ---
CLINICAL DOCUMENTATION CLARIFICATION FORM: Dear Dr. NUNO YING Date: 07-04-20 Please exercise your independent, professional judgment in responding to the clarification form. Clinical indicators are provided on the bottom of this form for your review. Please check appropriate box(es): [X ] Encephalopathy: Type: [ ] Acute [ ] Subacute [ ] Chronic Etiology [ X ] Metabolic [ ] Toxic [ ] Other (please specify) [ ] Transient Alteration of Awareness [ ] Other diagnosis [ ] Unable to determine In addition, please specify: Present on Admission (POA): [X ] Yes [ ] No [ ] Unable to determine For continuity of documentation, please document condition throughout progress notes and discharge summary. Thank You. To be completed by CDI/Coding staff for physician review: CLINICAL INDICATORS - SIGNS / SYMPTOMS / LABS / RESULTS AND LOCATION IN EMR: H&P 07-03-20: PENITENTIARY RESIDENT, HX CAD, HX STOKE, HLD, CKD WHO COMES AFTER A SYNCOPE EPISODE, UNWITNESSED FALL, MINIMALLY RESPONSIVE TO PAIN, NOT SURE WHY HE WAS SENT TO HOSPITAL CONSULT NOTE DR. CLOUD 07-04-20: REMAINS ENCEPHALOPATHIC, NO LONGER SEIZING RISK FACTORS / RESULTS AND LOCATION IN EMR: H&P 07-03-20: NSTEMI, SYNCOPE, CAD, HLD TREATMENTS / RESULTS AND LOCATION IN EMR: CONSULT NEUROLOGY DR. BARAJAS 07-03-20, ASH 07-03-20 MAR: 07-03-20: NS IVF, GIDEON CDS Signature: Vickie Rivera Phone #: [phone] Date/Time: 07-04-20 This is a permanent part of the Medical Record [facility]
[2020-07-04] MEDS: Sodium Chloride 0.9% 1,000 ML IV SCH (20:46)
[2020-07-04] MEDS: Atorvastatin Calcium 40 MG TAB PO SCH (20:51)
[2020-07-05] MEDS: Heparin 10,000 UNITS/ 10 ML VIAL SLOW IVP SCH (01:00)
[2020-07-05 04:07] LABS: Hemoglobin 11.7 g/dL (14.0-18.0); Platelet Count 140 thou/uL (130-400)
[2020-07-05 10:26] LABS: PTT 134.9 sec (22.9-36.1)
[2020-07-05] MEDS: Metoprolol Tartrate 25 MG TAB PO SCH ×2 (10:39→21:12)
[2020-07-05] MEDS: Aspirin 325 mg Enteric Coated Tablet PO SCH (10:39)
--- NOTE | 2020-07-05 11:01 | PRG ---
DATE OF SERVICE: 07/05/2020 SUBJECTIVE: An 89-year-old gentleman, who is having EEG done this morning, appears to be in no acute distress. OBJECTIVE: VITAL SIGNS: His temperature is 97. His saturations are 90%. Blood pressure GENERAL: Denies any pain or difficulty breathing. CHEST: No wheezing. No crackles. CARDIAC: Normal S1 and S2. No gallops. ABDOMEN: No masses. ASSESSMENT: 1. Acute coronary syndrome. 2. Advanced age. 3. Seizure activity. PLAN: Continue cardiac care. Continue supportive care. We will follow while in the MICU. Job ID: [id number]
--- NOTE | 2020-07-05 12:04 | EEG ---
DATE OF SERVICE: 07/05/2020 This EEG was performed using 24-channel [employer] video digital EEG machine with 24-disk electrodes. This was an extended 2 hours 6 minutes of inpatient video EEG recording. Digital analysis of the EEG was done for spike and seizure detection, which revealed no abnormalities. BACKGROUND: The posterior background rhythm was not observed. HYPERVENTILATION: Not performed. PHOTIC STIMULATION: Not performed. SLEEP: No stage change was observed. EEG DIAGNOSES: 1. Generalized irregular theta activity is seen throughout the recording with superimposed beta. 2. The delta activity is seen throughout the recording with superimposed beta. 3. Absence of posterior background rhythm. CLINICAL INTERPRETATION: This EEG is consistent with [id number] generalized nonspecific cerebral dysfunction. Job ID: [id number]
--- NOTE | 2020-07-05 12:50 | PDOC.NEUPN ---
- Subjective Encounter Date: 07/05/20 Subjective: Patient feels better today. No further seizures since admission. He is tolerating Keppra well without any side effects. - Objective Vital Signs & Weight: Vital Signs (12 hours) Temp Pulse Ox 07/05/20 11:11 97.2 F L 07/05/20 08:00 99 07/05/20 07:58 97.8 F 07/05/20 03:58 99 F Weight Weight 146 lb 11.2 oz Most Recent Monitor Data Heart Rate from ECG 81 NIBP 106/64 NIBP BP-Mean 78 Respiration from ECG 17 SpO2 100 I&O: 07/04/20 07/05/20 07/06/20 06:59 06:59 06:59 Intake Total 1510 1810 Output Total 900 Balance 610 1810 Result Diagrams: 07/05/20 03:47 07/04/20 01:51 Radiology Reviewed by me: Yes EKG Reviewed by me: Yes ROS - Review of Systems ROS unobtainable: due to mental status - Medication Medications: Active Medications Generic Name Dose Route Start Last Admin Trade Name Yanna PRN Reason Stop Dose Admin Aspirin 325 mg 07/03/20 09:00 07/05/20 10:39 Aspirin 325 Mg Enteric Coated Tablet PO 325 mg DAILY DAYNA Administration Atorvastatin Calcium 40 mg 07/03/20 21:00 07/04/20 20:51 Atorvastatin Calcium 40 Mg Tab PO 40 mg HS DAYNA Administration Sodium Chloride 1,000 mls @ 50 mls/hr 07/03/20 04:00 07/04/20 20:46 Normal Saline 0.9% IV 1,000 mls .Q20H DAYNA Administration Metoprolol Tartrate 12.5 mg 07/03/20 09:00 07/05/20 10:39 Metoprolol Tartrate 25 Mg Tab PO 12.5 mg BID DAYNA Administration - Exam General Appearance: awake alert Eye: PERRL ENT: normocephalic atraumatic Neck: supple Respiratory: CTAB Cardiovascular: RRR Gastrointestinal: soft Extremities: no cyanosis Skin: normal turgor Neurological: no new deficit PSYCH: normal affect, normal behavior, oriented to person Results - Labs Result Diagrams: 07/05/20 03:47 07/04/20 01:51 Lab results: WBC 5.8 thou/uL (4.8-10.8) 07/03/20 00:33 Hgb 11.7 g/dL (14.0-18.0) L 07/05/20 03:47 Hct 36.4 % (42.0-52.0) L 07/05/20 03:47 MCV 95.0 fL (78.0-98.0) 07/03/20 00:33 Plt Count 140 thou/uL (130-400) 07/05/20 03:47 Neutrophils % 60.9 % (42.0-75.0) 07/03/20 00:33 Sodium 140 mmol/L (136-145) 07/04/20 01:51 Potassium 4.5 mmol/L (3.5-5.1) 07/04/20 01:51 Chloride 113 mmol/L (98-107) H 07/04/20 01:51 Carbon Dioxide 18 mmol/L (23-31) L 07/04/20 01:51 BUN 30 mg/dL (8.4-25.7) H 07/04/20 01:51 Creatinine 1.59 mg/dL (0.7-1.3) H 07/04/20 01:51 Glucose 83 mg/dL (83-110) 07/04/20 01:51 Lactic Acid 0.9 mmol/L (0.5-2.2) 07/03/20 00:33 Calcium 8.8 mg/dL (7.8-10.44) 07/04/20 01:51 Total Bilirubin 0.5 mg/dL (0.2-1.2) 07/04/20 01:51 AST 74 U/L (5-34) H 07/04/20 01:51 ALT 115 U/L (8-55) H 07/04/20 01:51 Alkaline Phosphatase 110 U/L (40-110) 07/04/20 01:51 Creatine Kinase 143 U/L (30-200) 07/03/20 00:33 CK-MB (CK-2) 18.2 ng/mL (0-6.6) H* 07/03/20 00:33 Troponin I 6.221 ng/mL (< 0.028) H* 07/03/20 07:06 B-Natriuretic Peptide 1010.5 pg/mL (0-100) H 07/04/20 01:51 Serum Total Protein 6.0 g/dL (5.8-8.1) 07/04/20 01:51 Albumin 3.1 g/dL (3.4-4.8) L 07/04/20 01:51 Urine Ketones Negative mg/dL (Negative) 07/03/20 16:15 Urine Blood Negative (Negative) 07/03/20 16:15 Urine Nitrite Negative (Negative) 07/03/20 16:15 Ur Leukocyte Esterase Negative Erasto/uL (Negative) 07/03/20 16:15 Urine RBC 0-3 HPF (0-3) 07/03/20 16:15 Urine WBC 0-3 HPF (0-3) 07/03/20 16:15 Ur Squamous Epith Cells None Seen HPF (0-3) 07/03/20 16:15 Urine Bacteria None Seen HPF (None Seen) 07/03/20 16:15 - Radiology Interpretation CT scan - head Status: image reviewed by me, report reviewed by me Additional Comment: No acute intracranial pathology. PN A/P (1) New onset seizure Code(s): R56.9 - UNSPECIFIED CONVULSIONS Status: Acute (2) CAD (coronary artery disease) Code(s): I25.10 - ATHSCL HEART DISEASE OF [place] CORONARY ARTERY W/O ANG PCTRS Status: Acute (3) HLD (hyperlipidemia) Code(s): E78.5 - HYPERLIPIDEMIA, UNSPECIFIED Status: Acute (4) NSTEMI (non-ST elevated myocardial infarction) Code(s): I21.4 - NON-ST ELEVATION (NSTEMI) MYOCARDIAL INFARCTION Status: Acute (5) Syncope Code(s): R55 - SYNCOPE AND COLLAPSE Status: Acute (6) CVA (cerebrovascular accident) Code(s): I63.9 - CEREBRAL INFARCTION, UNSPECIFIED Status: Chronic - Plan Daily Plan: old records reviewed/req, PT/OT, speech therapy, DVT proph w/SCDs 89-year-old male with history significant for dementia, coronary artery disease and hyperlipidemia presented with new onset seizure activity. EEG reviewed and was negative for seizure activity. Head CT reviewed which did not reveal any acute intracranial pathology. Continue Keppra 500 mg twice daily. Neurochecks every 4 hours. 2D echo completed and results noted. Telemetry. Ativan 2 mg IV for seizure greater than 2 minutes. Observe seizure precautions. Continue home medications. Continue medical management per primary team cardiology. PT/OT/speech when stable. DVT prophylaxis. Plan discussed with the nursing staff.
--- NOTE | 2020-07-05 17:28 | PDOC.HOSPP ---
- Subjective Encounter Date: 07/05/20 Subjective: Patient says he is doing well. He has no specific complaints. He is very concerned that he might have missed behaved yesterday when he was "in a fog". - Objective Vital Signs & Weight: Vital Signs (12 hours) Temp Pulse Ox 07/05/20 11:11 97.2 F L 07/05/20 08:00 99 07/05/20 07:58 97.8 F Weight Weight 146 lb 11.2 oz Most Recent Monitor Data Heart Rate from ECG 106 NIBP 107/84 NIBP BP-Mean 91 Respiration from ECG 22 SpO2 95 I&O: 07/04/20 07/05/20 07/06/20 06:59 06:59 06:59 Intake Total 1510 1810 Output Total 900 Balance 610 1810 Result Diagrams: 07/05/20 03:47 07/04/20 01:51 Hospitalist ROS - Medication Medications: Active Medications Generic Name Dose Route Start Last Admin Trade Name Freq PRN Reason Stop Dose Admin Aspirin 325 mg 07/03/20 09:00 07/05/20 10:39 Aspirin 325 Mg Enteric Coated Tablet PO 325 mg DAILY DAYNA Administration Atorvastatin Calcium 40 mg 07/03/20 21:00 07/04/20 20:51 Atorvastatin Calcium 40 Mg Tab PO 40 mg HS DAYNA Administration Sodium Chloride 1,000 mls @ 50 mls/hr 07/03/20 04:00 07/04/20 20:46 Normal Saline 0.9% IV 1,000 mls .Q20H DAYNA Administration Metoprolol Tartrate 12.5 mg 07/03/20 09:00 07/05/20 10:39 Metoprolol Tartrate 25 Mg Tab PO 12.5 mg BID DAYNA Administration - Exam General Appearance: NAD, awake alert Heart: RRR, no murmur, no gallops, no rubs, normal peripheral pulses Respiratory: CTAB, no wheezes, no rales, no ronchi, normal chest expansion, no tachypnea, normal percussion Gastrointestinal: soft, non-tender, non-distended, normal bowel sounds, no palpable masses, no hepatomegaly, no splenomegaly, no bruit Extremities: no cyanosis, no clubbing, no edema Skin: normal turgor Neurological: cranial nerve grossly intact, normal sensation to touch, no weakness, no focal deficits, no new deficit Musculoskeletal: generalized weakness Psychiatric: normal affect, normal behavior Hosp A/P (1) Shock liver Code(s): K72.00 - ACUTE AND SUBACUTE HEPATIC FAILURE WITHOUT COMA Status: Acute (2) CAD (coronary artery disease) Code(s): I25.10 - ATHSCL HEART DISEASE OF [place] CORONARY ARTERY W/O ANG PCTRS Status: Acute (3) HLD (hyperlipidemia) Code(s): E78.5 - HYPERLIPIDEMIA, UNSPECIFIED Status: Acute (4) NSTEMI (non-ST elevated myocardial infarction) Code(s): I21.4 - NON-ST ELEVATION (NSTEMI) MYOCARDIAL INFARCTION Status: Acute (5) New onset seizure Code(s): R56.9 - UNSPECIFIED CONVULSIONS Status: Acute (6) Syncope Code(s): R55 - SYNCOPE AND COLLAPSE Status: Acute (7) CKD (chronic kidney disease), stage III Code(s): N18.30 - CHRONIC KIDNEY DISEASE, STAGE 3 UNSPECIFIED Status: Acute (8) History of CVA (cerebrovascular accident) Code(s): Z86.73 - PRSNL HX OF TIA (TIA), AND CEREB INFRC W/O RESID DEFICITS Status: Acute (9) Cardiomyopathy Code(s): I42.9 - CARDIOMYOPATHY, UNSPECIFIED Status: Acute - Plan Seizure: Patient apparently had a significant seizure. He did had elevated prolactin level. He had some associated organ damage consistent with a brief period of hypoxia likely associated with a seizure. He is currently on Keppra. Neurology has evaluated the patient. Currently the plan is to maintain the Keppra p.o. NSTEMI: Likely the result of a period of hypoxia related to a seizure. Is possible he could have had a primary [place] although that would be highly coincidental. His renal function precludes significant work-up. Discussed this with the patient's family and they are in agreement and not interested in pursuing anything aggressive at this time. Cardiomyopathy: EF is around 35% with evidence of some diastolic dysfunction on echo. No evidence of decompensated failure. Shock liver: Elevated liver enzymes likely related to some hypoxia. Slightly improved today. CKD stage III: After talking to the patient's family it sounds like this is approximately where his baseline is. Disposition: Patient was formerly in more of an assisted living type environment. He recently fell about 2 weeks ago and was admitted to [facility] for several days. From there he went to rehab at [facility]. We will get physical therapy to get him up and moving. Anticipate we need to get him back to rehab soon.
--- NOTE | 2020-07-05 17:35 | PDOC.EVN ---
Event Note - Event Note Event Note: I did speak at length with the patient's son and daughter this evening. We explained the patient's diagnoses, work-up and prognosis. Palliative care team and the patient's nurse also met with the family. Ultimately they have made the decision to pursue chemical code only. Patient does not want chest compressions or intubation. He does not want any type of artificial feeds. He does have a defibrillator in place and would accept medications.
[2020-07-05] MEDS: Sodium Chloride 0.9% 1,000 ML IV SCH (17:54)
[2020-07-05] MEDS: Atorvastatin Calcium 40 MG TAB PO SCH (21:11)
[2020-07-05] MEDS: levETIRAcetam 500 MG TAB PO SCH (21:11)
[2020-07-06] MEDS: Metoprolol Tartrate 25 MG TAB PO SCH ×2 (08:46→20:23)
[2020-07-06] MEDS: Aspirin 325 mg Enteric Coated Tablet PO SCH (08:47)
[2020-07-06] MEDS: levETIRAcetam 500 MG TAB PO SCH ×2 (08:47→20:38)
--- NOTE | 2020-07-06 09:00 | PRG ---
DATE OF SERVICE: 07/06/2020 SUBJECTIVE: Jeancarlos Ingrma is an 89-year-old gentleman, who appears to be in no acute distress. OBJECTIVE: VITAL SIGNS: His temperature has been 97, pulse 80, blood pressure 127/68, saturations are 94%, respiratory rate of 18. CHEST: No wheezing. No crackles. CARDIAC: Normal S1, S2. No gallops. ABDOMEN: No masses. IMPRESSION AND PLAN: New-onset seizure activity, coronary artery disease, myocardial infarction, renal failure. Comfort care. Pulmonary is going to follow while in the MICU. Job ID: [id number]
[2020-07-06 11:51] VITALS: BP 108/82
--- NOTE | 2020-07-06 12:39 | PDOC.NEUPN ---
- Subjective Encounter Date: 07/06/20 Subjective: Patient feels better today and denies any new complaints. He is oriented to person and place hospital but not to the year or month. - Objective Vital Signs & Weight: Vital Signs (12 hours) Temp Pulse Pulse BP BP Pulse Ox Pulse Ox 07/06/20 10:53 90 85 108/82 125/70 99 07/06/20 08:00 98.3 F 98 07/06/20 04:00 97.1 F L Pulse Ox 07/06/20 10:53 96 07/06/20 08:00 07/06/20 04:00 Weight Weight 146 lb 11.2 oz Most Recent Monitor Data Heart Rate from ECG 100 NIBP 102/72 NIBP BP-Mean 82 Respiration from ECG 17 SpO2 94 I&O: 07/05/20 07/06/20 07/07/20 06:59 06:59 06:59 Intake Total 1810 600 Balance 1810 600 Result Diagrams: 07/05/20 03:47 07/04/20 01:51 Radiology Reviewed by me: Yes EKG Reviewed by me: Yes ROS - Review of Systems ROS unobtainable: due to mental status - Medication Medications: Active Medications Generic Name Dose Route Start Last Admin Trade Name Freq PRN Reason Stop Dose Admin Aspirin 325 mg 07/03/20 09:00 07/06/20 08:47 Aspirin 325 Mg Enteric Coated Tablet PO 325 mg DAILY DAYNA Administration Atorvastatin Calcium 40 mg 07/03/20 21:00 07/05/20 21:11 Atorvastatin Calcium 40 Mg Tab PO 40 mg HS DAYNA Administration Sodium Chloride 1,000 mls @ 50 mls/hr 07/03/20 04:00 07/05/20 17:54 Normal Saline 0.9% IV 1,000 mls .Q20H DAYNA Administration Levetiracetam 500 mg 07/05/20 21:00 07/06/20 08:47 Levetiracetam 500 Mg Tab PO 500 mg BID DAYNA Administration Metoprolol Tartrate 12.5 mg 07/03/20 09:00 07/06/20 08:46 Metoprolol Tartrate 25 Mg Tab PO 12.5 mg BID DAYNA Administration - Exam General Appearance: awake alert Eye: PERRL ENT: normocephalic atraumatic Neck: supple Respiratory: CTAB Cardiovascular: RRR Gastrointestinal: soft Extremities: no cyanosis Skin: normal turgor Neurological: no new deficit Musculoskeletal: normal tone, no muscle wasting PSYCH: normal affect, normal behavior, oriented to person, oriented to place Results - Labs Result Diagrams: 07/05/20 03:47 07/04/20 01:51 Lab results: WBC 5.8 thou/uL (4.8-10.8) 07/03/20 00:33 Hgb 11.7 g/dL (14.0-18.0) L 07/05/20 03:47 Hct 36.4 % (42.0-52.0) L 07/05/20 03:47 MCV 95.0 fL (78.0-98.0) 07/03/20 00:33 Plt Count 140 thou/uL (130-400) 07/05/20 03:47 Neutrophils % 60.9 % (42.0-75.0) 07/03/20 00:33 Sodium 140 mmol/L (136-145) 07/04/20 01:51 Potassium 4.5 mmol/L (3.5-5.1) 07/04/20 01:51 Chloride 113 mmol/L (98-107) H 07/04/20 01:51 Carbon Dioxide 18 mmol/L (23-31) L 07/04/20 01:51 BUN 30 mg/dL (8.4-25.7) H 07/04/20 01:51 Creatinine 1.59 mg/dL (0.7-1.3) H 07/04/20 01:51 Glucose 83 mg/dL (83-110) 07/04/20 01:51 Lactic Acid 0.9 mmol/L (0.5-2.2) 07/03/20 00:33 Calcium 8.8 mg/dL (7.8-10.44) 07/04/20 01:51 Total Bilirubin 0.5 mg/dL (0.2-1.2) 07/04/20 01:51 AST 74 U/L (5-34) H 07/04/20 01:51 ALT 115 U/L (8-55) H 07/04/20 01:51 Alkaline Phosphatase 110 U/L (40-110) 07/04/20 01:51 Creatine Kinase 143 U/L (30-200) 07/03/20 00:33 CK-MB (CK-2) 18.2 ng/mL (0-6.6) H* 07/03/20 00:33 Troponin I 6.221 ng/mL (< 0.028) H* 07/03/20 07:06 B-Natriuretic Peptide 1010.5 pg/mL (0-100) H 07/04/20 01:51 Serum Total Protein 6.0 g/dL (5.8-8.1) 07/04/20 01:51 Albumin 3.1 g/dL (3.4-4.8) L 07/04/20 01:51 Urine Ketones Negative mg/dL (Negative) 07/03/20 16:15 Urine Blood Negative (Negative) 07/03/20 16:15 Urine Nitrite Negative (Negative) 07/03/20 16:15 Ur Leukocyte Esterase Negative Erasto/uL (Negative) 07/03/20 16:15 Urine RBC 0-3 HPF (0-3) 07/03/20 16:15 Urine WBC 0-3 HPF (0-3) 07/03/20 16:15 Ur Squamous Epith Cells None Seen HPF (0-3) 07/03/20 16:15 Urine Bacteria None Seen HPF (None Seen) 07/03/20 16:15 PN A/P (1) New onset seizure Code(s): R56.9 - UNSPECIFIED CONVULSIONS Status: Acute (2) CAD (coronary artery disease) Code(s): I25.10 - ATHSCL HEART DISEASE OF [place] CORONARY ARTERY W/O ANG PCTRS Status: Acute (3) HLD (hyperlipidemia) Code(s): E78.5 - HYPERLIPIDEMIA, UNSPECIFIED Status: Acute (4) NSTEMI (non-ST elevated myocardial infarction) Code(s): I21.4 - NON-ST ELEVATION (NSTEMI) MYOCARDIAL INFARCTION Status: Acute (5) Syncope Code(s): R55 - SYNCOPE AND COLLAPSE Status: Acute (6) CVA (cerebrovascular accident) Code(s): I63.9 - CEREBRAL INFARCTION, UNSPECIFIED Status: Chronic - Plan Daily Plan: PT/OT, speech therapy, DVT proph w/SCDs 89-year-old male with history significant for dementia, coronary artery disease and hyperlipidemia presented with new onset seizure activity. Patient stable and no further seizures since admission. He is tolerating Keppra well without any side effects. EEG reviewed and was negative for seizure activity. Head CT reviewed which did not reveal any acute intracranial pathology. Continue Keppra 500 mg twice daily. Neurochecks every 4 hours. 2D echo completed and results noted. Telemetry. Ativan 2 mg IV for seizure greater than 2 minutes. Observe seizure precautions. Continue home medications. Continue medical management per primary team cardiology. PT/OT/speech when stable. DVT prophylaxis. Plan discussed with the nursing staff.
[2020-07-06] MEDS: Sodium Chloride 0.9% 1,000 ML IV SCH (14:56)
--- NOTE | 2020-07-06 15:25 | PDOC.HOSPP ---
- Subjective Encounter Date: 07/06/20 Encounter Time: 15:05 Subjective: f/u for seizure with NSTEMI on current Keppra. No recurrnet seizures noted per nursing. Pt states he feels weak but no other complaints. - Objective Vital Signs & Weight: Vital Signs (12 hours) Temp Pulse Pulse BP BP Pulse Ox Pulse Ox 07/06/20 10:53 90 85 108/82 125/70 99 07/06/20 08:00 98.3 F 98 07/06/20 04:00 97.1 F L Pulse Ox 07/06/20 10:53 96 07/06/20 08:00 07/06/20 04:00 Weight Weight 146 lb 11.2 oz Most Recent Monitor Data Heart Rate from ECG 75 NIBP 109/73 NIBP BP-Mean 85 Respiration from ECG 5 SpO2 98 I&O: 07/05/20 07/06/20 07/07/20 06:59 06:59 06:59 Intake Total 1810 600 Balance 1810 600 Result Diagrams: 07/05/20 03:47 07/04/20 01:51 Additional Labs: Microbiology 07/03/20 00:41 Venous blood - Right Hand Blood Culture - Preliminary NO GROWTH AT 48 HOURS 07/03/20 00:33 Venous blood - Left Arm Blood Culture - Preliminary NO GROWTH AT 48 HOURS Laboratory Tests 07/03/20 07/03/20 07/03/20 00:33 00:33 03:49 Creatinine 1.80 H AST 105 H ALT 157 H Troponin I 1.866 H* 3.697 H* B-Natriuretic Peptide TSH 3rd Generation Prolactin 07/03/20 07/03/20 07/03/20 03:49 07:06 10:22 Creatinine AST ALT Troponin I 6.221 H* B-Natriuretic Peptide TSH 3rd Generation 4.4436 Prolactin 54.38 H 07/04/20 07/04/20 01:51 01:51 Creatinine AST 74 H ALT 115 H Troponin I B-Natriuretic Peptide 1010.5 H TSH 3rd Generation Prolactin EKG Reviewed by me: Yes (Tele - SR) Hospitalist ROS - Medication Medications: Active Medications Generic Name Dose Route Start Last Admin Trade Name Freq PRN Reason Stop Dose Admin Aspirin 325 mg 07/03/20 09:00 07/06/20 08:47 Aspirin 325 Mg Enteric Coated Tablet PO 325 mg DAILY DAYNA Administration Atorvastatin Calcium 40 mg 07/03/20 21:00 07/05/20 21:11 Atorvastatin Calcium 40 Mg Tab PO 40 mg HS DAYNA Administration Sodium Chloride 1,000 mls @ 50 mls/hr 07/03/20 04:00 07/06/20 14:56 Normal Saline 0.9% IV 1,000 mls .Q20H DAYNA Administration Levetiracetam 500 mg 07/05/20 21:00 07/06/20 08:47 Levetiracetam 500 Mg Tab PO 500 mg BID DAYNA Administration Metoprolol Tartrate 12.5 mg 07/03/20 09:00 07/06/20 08:46 Metoprolol Tartrate 25 Mg Tab PO 12.5 mg BID DAYNA Administration - Exam General Appearance: NAD, awake alert Eye: PERRL, anicteric sclera ENT: normocephalic atraumatic, no oropharyngeal lesions Neck: supple, symmetric, no JVD, no thyromegaly, no lymphadenopathy Heart: RRR, no gallops, no rubs, normal peripheral pulses Heart - other findings: S1, S2 Respiratory: CTAB, no wheezes, no rales, no ronchi, normal chest expansion, no tachypnea Gastrointestinal: soft, non-tender, non-distended, normal bowel sounds, no palpable masses Extremities: no cyanosis, no clubbing, no edema Skin: normal turgor Neurological: cranial nerve grossly intact, no new deficit Musculoskeletal: normal tone, generalized weakness Psychiatric: oriented to person, oriented to place, flat affect Hosp A/P (1) New onset seizure Code(s): R56.9 - UNSPECIFIED CONVULSIONS Status: Acute Plan: Continue Keppra 500mg BID, seizure precautions (2) NSTEMI (non-ST elevated myocardial infarction) Code(s): I21.4 - NON-ST ELEVATION (NSTEMI) MYOCARDIAL INFARCTION Status: Acute Plan: Suspect Type II NSTEMI due to seizure activity, med mgmt (3) Shock liver Code(s): K72.00 - ACUTE AND SUBACUTE HEPATIC FAILURE WITHOUT COMA Status: Acute Plan: Secondary to #1, resolving (4) CKD (chronic kidney disease), stage III Code(s): N18.30 - CHRONIC KIDNEY DISEASE, STAGE 3 UNSPECIFIED Status: Chronic Plan: Avoid nephrotoxic meds and limit contrast, serial creatinine (5) Cardiomyopathy Code(s): I42.9 - CARDIOMYOPATHY, UNSPECIFIED Status: Chronic Plan: EF 35-40%, med mgmt, AICD in place - Plan PT/OT, social services specialist, out of bed/ambulate, DVT proph w/SCDs Stable currently Continue Keppra 500mg BID OOB with PT CM for SNF at d/c Continue Metoprolol/ASA/Lipitor Likely d/c in 24h
[2020-07-06] MEDS: Atorvastatin Calcium 40 MG TAB PO SCH (20:23)
[2020-07-07 06:49] LABS: Hemoglobin 12.2 g/dL (14.0-18.0); Platelet Count 144 thou/uL (130-400)
[2020-07-07] MEDS: Sodium Chloride 0.9% 1,000 ML IV SCH (10:24)
[2020-07-07] MEDS: Metoprolol Tartrate 25 MG TAB PO SCH (10:24)
[2020-07-07] MEDS: Aspirin 325 mg Enteric Coated Tablet PO SCH (10:24)
[2020-07-07] MEDS: levETIRAcetam 500 MG TAB PO SCH (10:25)
[2020-07-07 15:23] VITALS: TEMP 98.4
--- NOTE | 2020-07-08 02:12 | DIS ---
DATE OF ADMISSION: 07/03/2020 DATE OF DISCHARGE: 07/07/2020 DISCHARGE DIAGNOSES: 1. New onset seizure. 2. Type 2 non-ST elevation myocardial infarction secondary to #1, conservative management. 3. Transaminitis secondary to #1, improved. 4. Chronic kidney disease, stage 3. 5. Cardiomyopathy with ejection fraction of 35%-40%, stable. CONSULTATIONS: 1. Dr. Boykin with Cardiology Service. 2. Dr. Reid with Neurology Service. 3. Dr. Nava with Pulmonology Critical Care Service. PERTINENT LABORATORY AND X-RAY FINDINGS: Creatinine range between 1.59-1.80. Estimated GFR range between 36-41. AST range between 74-105. ALT range between 115-157. Troponin-I range between 1.87-6.22. BNP 1011, prolactin level 54.4, TSH 4.44. Total cholesterol 78, triglycerides 48, HDL 36, LDL 32. Hemoglobin A1c at 5.4. Lactic acid level 0.9. CBC showed a hemoglobin ranging between 11.7 to 13.6. Plasma alcohol level less than 10 on 07/03/2020. COVID-19 PCR not detected, 07/03/2020. Blood cultures x2 dated 07/03/2020, showed no growth at [address] of the brain without contrast dated 07/02/2020, showed no acute intracranial process. Moderate generalized cerebral atrophy compatible with chronic small-vessel ischemic changes. CT of cervical spine showed no evidence of fracture or dislocation. Multilevel degenerative changes noted. Portable chest x-ray dated 07/03/2020, showed minimally displaced left 3rd and 4th rib fractures. No acute pulmonary findings. 2D transthoracic echocardiogram dated 07/03/2020, showed ejection fraction of 35%-40%. EEG dated 07/04/2020, showed findings consistent with moderate to severe generalized nonspecific cerebral dysfunction. HOSPITAL COURSE: The patient was initially admitted after presenting status post syncopal episode. The patient apparently was attempting to urinate before passing out. In the emergency room, the patient underwent extensive evaluation including CT imaging of the brain showing no acute intracranial process. The patient was noted with elevated troponin-I at the time of admission without associated EKG changes. The patient received aspirin. In addition, was placed on Lipitor and was given a Cardiology consultation. The patient was also evaluated due to this syncopal episode with prolactin level initially noted at 54.4. The patient was evaluated by the Neurology Service and initiated on Keppra 500 mg b.i.d. The patient with an apparent syncopal episode due to seizure with associated elevated prolactin level and type 2 non-ST elevation myocardial infarction due to demand ischemia. The patient was placed on the aspirin and Lipitor as stated previously. In addition, he was evaluated by Cardiology Service who recommended conservative measures due to patient's advanced age and limited mobility status. The patient was treated conservatively and medically and clinically stabilized. Overall, the patient did remain clinically stable with conservative management and ready to return to care home care after discharge. I have examined the patient at the time of discharge and discussed followup instructions. The patient verbalizes understanding and agreement and ready for discharge on 07/07/2020. DISCHARGE MEDICATIONS: 1. Enteric-coated aspirin 81 mg p.o. daily. 2. Lipitor 40 mg p.o. at bedtime. 3. Vitamin B12 at 1000 mcg p.o. daily. 4. Keppra 500 mg p.o. b.i.d. 5. Metoprolol 6.25 mg p.o. b.i.d. FOLLOWUP: The patient to follow up with Dr. Moon within 7 days of discharge. CONDITION ON DISCHARGE: Fair. ACTIVITY: Ad-bettie. Rolling walker with standby/contact guard assistance. DIET: Heart healthy. SPECIAL INSTRUCTIONS: Recommend outpatient physical and occupational therapy on returning to [facility]. CODE STATUS: Chemical code only. DISPOSITION: Discharged to [facility], 07/07/2020. TIME SPENT: Total time preparing and coordinating discharge, 36 minutes. Job ID: [id number]
--- NOTE | 2020-07-09 11:32 | EKG ---
Test Reason : Blood Pressure : / mmHG Vent. Rate : 100 BPM Atrial Rate : 100 BPM P-R Int : 176 ms QRS Dur : 150 ms QT Int : 336 ms P-R-T Axes : 055 -85 072 degrees QTc Int : 433 ms Sinus rhythm with Premature supraventricular complexes with junctional escape complexes Left axis deviation Right bundle branch block Anterior infarct , age undetermined Abnormal ECG Confirmed by ALPESH MIRANDA M.D. ([id number]), newspaper or periodical editor VONDA LO ([id number]) on 07/09/2020 11:31:24 AM Referred By: Confirmed By:ALPESH MIRANDA M.D.
== END 2020-07-07 15:35 | DRG 100 ==
LOC: ERS 23:38 → 2NO 07-03 04:44 → IMCU/EMU 07-03 09:25
PROVIDERS: ADMIT Family Medicine; ATTEND Family Medicine
DX: G40.909 Epilepsy, unspecified, not intractable, without status epilepticus (principal); I21.A1 Myocardial infarction type 2; K72.00 Acute and subacute hepatic failure without coma; G93.41 Metabolic encephalopathy; I42.8 Other cardiomyopathies; R74.01 Elevation of levels of liver transaminase levels; N18.30 Chronic kidney disease, stage 3 unspecified; Z20.828 Contact with and (suspected) exposure to other viral communicable diseases; I25.10 Atherosclerotic heart disease of native coronary artery without angina pectoris; I12.9 Hypertensive chronic kidney disease with stage 1 through stage 4 chronic kidney disease, or unspecified chronic kidney disease; F03.90 Unspecified dementia, unspecified severity, without behavioral disturbance, psychotic disturbance, mood disturbance, and anxiety; E78.5 Hyperlipidemia, unspecified; Z86.73 Personal history of transient ischemic attack (TIA), and cerebral infarction without residual deficits; Z79.899 Other long term (current) drug therapy; Z79.82 Long term (current) use of aspirin; I25.2 Old myocardial infarction; Z95.0 Presence of cardiac pacemaker
CPT/HCPCS: 36415; 36416; 70450; 71045; 72125; 80053; 80061; 80307; 81001; 82550; 82553; 83036; 83605; 83735; 83880; 84145; 84146; 84443; 84484; 85014; 85018; 85025; 85049; 85610; 85730; 87040; 87635; 93005; 93306; 95712; 95816; 95819; 95957; 96365; 96366; 96375; J1644; J1953; J3490; J7050; U0003

== ENCOUNTER 2020-07-21 00:34 | Inpatient (IN) | payer MEDICARE, OTHER ==
[2020-07-21 01:11] LABS: #Eosinphils 0.5 thou/uL (0.0-0.7); #Lymphocytes 1.5 thou/uL (1.20-3.40); #Monocytes 0.6 thou/uL (0.11-0.59); %Basophils 0.7 % (0.0-1.0); %Eosinophils 7.8 % (0.0-10.0); %Lymphocytes 22.7 % (21.0-51.0); %Monocytes 8.3 % (0.0-10.0); %Neutrophils 60.5 % (42.0-75.0); Hemoglobin 12.1 g/dL (14.0-18.0); Mean Corpuscular HGB CONC 32.6 g/dL (32.0-36.0); Mean Corpuscular Hemoglobin 31.4 pg (27.0-31.0); Mean Corpuscular Volume 96.1 fL (78.0-98.0); Mean Platelet Volume 7.9 fL (7.4-10.4); Platelet Count 168 thou/uL (130-400); RBC Distribution Width 12.5 % (11.5-14.5); Red Blood Cell (RBC) Count 3.86 mill/uL (4.70-6.10); White Blood Cell (WBC) Count 6.6 thou/uL (4.8-10.8)
[2020-07-21 01:25] LABS: ALT (SGPT) 51 U/L (8-55); AST (SGOT) 40 U/L (5-34); Albumin 3.2 g/dL (3.4-4.8); Alkaline Phosphatase 107 U/L (40-110); Anion Gap 14 mmol/L (10-20); BUN (Urea Nitrogen) 40 mg/dL (8.4-25.7); Bilirubin, Total 0.3 mg/dL (0.2-1.2); Calc. Creatinine Clearance 0 mL/min (70-130); Calcium 8.9 mg/dL (7.8-10.44); Carbon Dioxide 20 mmol/L (23-31); Chloride 112 mmol/L (98-107); Estimated GFR-MDRD 37; Globulin 3.4 g/dL (2.4-3.5); Glucose 90 mg/dL (83-110); Potassium 4.9 mmol/L (3.5-5.1); Protein, Total 6.6 g/dL (5.8-8.1); Sodium 141 mmol/L (136-145)
[2020-07-21 01:50] LABS: Bacteria/HPF None Seen HPF (None Seen); Bilirubin Negative (Negative); Blood, Urine 1+ (Negative); Clarity Clear (Clear); Glucose, Urine (Dipstick) Normal (Negative); Ketone, Urine Negative (Negative); Leukocyte Negative Leu/uL (Negative); Nitrite Negative (Negative); Protein, Urine (Dipstick) 20 mg/dL (Neg-Trace); Specific Gravity, Urine 1.019 (1.002-1.036); Squamous Epithelial None Seen HPF (0-3); Urobilinogen Normal mg/dL (Less than 2); WBC/HPF 0-3 HPF (0-3)
[2020-07-21 01:50] LABS: CKMB 1.6 ng/mL (0-6.6)
[2020-07-21] MEDS ORDERED: Aspirin 325 MG TAB ONE (05:14)
[2020-07-21 05:23] LABS: CKMB 1.6 ng/mL (0-6.6)
[2020-07-21] MEDS ORDERED: Enoxaparin Sodium 40 MG/0.4 ML SYRINGE ONE (05:29)
[2020-07-21] MEDS ORDERED: Enoxaparin Sodium 30 MG/0.3 ML SYRINGE ONE (05:29)
--- NOTE | 2020-07-21 06:54 | CT ---
PRELIMINARY REPORT/[facility]/EMERGENCY AFTER HOURS PROCEDURE: EXAM: CT Head Without Intravenous Contrast. CLINICAL HISTORY: AMS TECHNIQUE: Axial computed tomography images of the head/brain without intravenous contrast. COMPARISON: 07/03/2020. FINDINGS: BRAIN: No acute intraparenchymal hemorrhage. No mass lesion. No CT evidence for acute territorial infarct. N o midline shift or extra-axial collection. Hypodense encephalomalacia in the right frontoparietal lo be. Hypodense encephalomalacia in the left parietal lobe and left frontal lobe. Hypodense encephalo malacia in the left occipital lobe. Mild prominent of the sulci and ventricles. Moderate subcortica l and periventricular white matter hypodensities. Arteriosclerosis. VENTRICLES: No hydrocephalus. ORBITS: The orbits are unremarkable. SINUSES AND MASTOIDS: The paranasal sinuses and mastoid air cells are clear. SOFT TISSUES: No significant facial or scalp soft tissue swelling evident. No radiopaque foreign body is seen. BONES: No acute skull fracture. IMPRESSION: No acute intracranial abnormality. Remote infarcts in the left parietal lobe and left frontal lobe, bilateral occipital lobes, and right frontoparietal lobe. Moderate subcortical and periventricular white matter changes likely related to chronic ischemic smal l vessel disease. Mild generalized cerebral atrophy. ELECTRONICALLY SIGNED BY: Kilo Luther MD Jul 21, 2020 1:38:48 AM CDT This report is intended for review by the ordering physician only, in accordance of law. If you recei ve this report in error, please call [facility] at [phone]. FINAL REPORT EMERGENCY AFTER HOURS CT OF THE BRAIN WITHOUT CONTRAST: Date: 07/21/2020 COMPARISON: 07/03/2020. FINDINGS/IMPRESSION: I agree with the findings and impression given in the preliminary report per [facility] physici an. Extensive small vessel ischemic disease without acute intracranial abnormality. POS: EAA
[2020-07-21 09:22] VITALS: BMI 20.9
--- NOTE | 2020-07-21 09:50 | PDOC.HHP ---
Hospitalist HPI - History of Present Illness Altered mental status History of Present Illness: This is an 81-year-old male patient with a past medical history of ND, hyperlipidemia, CVA, chronic kidney disease and hypertension brought in from his group home on account of a change in his mental status. At the time of my evaluation the patient was not coherent however knew his name. According to the records she is AOx4 prior to the event where he was noted to be staring blankly into space. He answered yes to having chest pain besides that he did not answer any of my questions. He was recently admitted and discharged on 06/28/2020 after having been managed for altered mental status and diagnosed with seizures. At that visit he also had elevated troponins up to 6.22 on 07/03/2020. This was attributed to his seizure activity during that visit. He had no intervention. At presentation his blood pressure was 138/86, pulse 60, temperature 97, saturating 98% on room air. His labs showed mild anemia of 12.1, creatinine 1.75 from a baseline of 2.01, troponin was elevated at 0.01. CT scan of his brain showed no acute intracranial process. EKG showed rate of 62, paced rhythm, left axis deviation and first-degree heart block. No ST or T wave changes of concern. He was started on Lovenox 1 mg/kg, aspirin 325. Hospitalist team consulted for admission. Hospitalist ROS - Review of Systems ROS unobtainable: due to mental status Hospitalist History - Past Medical History Cardiac: reports: CAD - Exam General - other findings: Awake, no acute distress ENT: normocephalic atraumatic Heart: RRR, no murmur, no gallops, no rubs Respiratory: no wheezes, no rales, no ronchi, no tachypnea Gastrointestinal: soft, non-tender, non-distended, normal bowel sounds Extremities: no cyanosis, no clubbing, no edema Neurological: cranial nerve grossly intact, normal sensation to touch, no weakness Psychiatric - other findings: Oriented to self. Not place and time. Hospitalist Results - Labs Result Diagrams: 07/21/20 00:50 07/21/20 00:50 Lab results: WBC 6.6 thou/uL (4.8-10.8) 07/21/20 00:50 Hgb 12.1 g/dL (14.0-18.0) L 07/21/20 00:50 Hct 37.1 % (42.0-52.0) L 07/21/20 00:50 MCV 96.1 fL (78.0-98.0) 07/21/20 00:50 Plt Count 168 thou/uL (130-400) 07/21/20 00:50 Neutrophils % 60.5 % (42.0-75.0) 07/21/20 00:50 Sodium 141 mmol/L (136-145) 07/21/20 00:50 Potassium 4.9 mmol/L (3.5-5.1) 07/21/20 00:50 Chloride 112 mmol/L (98-107) H 07/21/20 00:50 Carbon Dioxide 20 mmol/L (23-31) L 07/21/20 00:50 BUN 40 mg/dL (8.4-25.7) H 07/21/20 00:50 Creatinine 1.75 mg/dL (0.7-1.3) H 07/21/20 00:50 Glucose 90 mg/dL (83-110) 07/21/20 00:50 Lactic Acid 0.9 mmol/L (0.5-2.2) 07/21/20 00:50 Calcium 8.9 mg/dL (7.8-10.44) 07/21/20 00:50 Total Bilirubin 0.3 mg/dL (0.2-1.2) 07/21/20 00:50 AST 40 U/L (5-34) H 07/21/20 00:50 ALT 51 U/L (8-55) 07/21/20 00:50 Alkaline Phosphatase 107 U/L (40-110) 07/21/20 00:50 CK-MB (CK-2) 1.6 ng/mL (0-6.6) 07/21/20 04:07 Troponin I 0.220 ng/mL (< 0.028) H 07/21/20 07:16 B-Natriuretic Peptide 619.0 pg/mL (0-100) H 07/21/20 00:50 Serum Total Protein 6.6 g/dL (5.8-8.1) 07/21/20 00:50 Albumin 3.2 g/dL (3.4-4.8) L 07/21/20 00:50 Urine Ketones Negative mg/dL (Negative) 07/21/20 01:31 Urine Blood 1+ (Negative) A 07/21/20 01:31 Urine Nitrite Negative (Negative) 07/21/20 01:31 Ur Leukocyte Esterase Negative Erasto/uL (Negative) 07/21/20 01:31 Urine RBC 7-10 HPF (0-3) A 07/21/20 01:31 Urine WBC 0-3 HPF (0-3) 07/21/20 01:31 Ur Squamous Epith Cells None Seen HPF (0-3) 07/21/20 01:31 Urine Bacteria None Seen HPF (None Seen) 07/21/20 01:31 Hospitalist H&P A/P - Plan Plan: There is an 89-year-old male patient history of coronary disease, resident of group home presented on account of altered mental status. Initial evaluation concerning for NSTEMI. NSTEMI Troponin elevated above 1we will trend however reduced from 2 weeks ago Patient answered yes to having chest pain Received therapeutic Lovenoxwe will continue Consult cardiology to assess need for home further intervention Palliative care to discuss goals of care Acute encephalopathy Possible seizure CT scan of head negative Postoperative UTI No significant electrolyte abnormality. Urine drug screen Close monitoring. Seizure disorder Diagnosed on last admission Supposed to be on Keppra We will continue for now Consult neuro for evaluation. CKD Creatinine at baseline Continue monitoring. Heart failure with preserved ejection fraction EF 35 to 40% on 07/03/2020 No evidence of acute exacerbation at the moment. Continue care T therapy Continue management VT prophylaxistherapeutic on Lovenox CODE STATUSfull code Palliative consult for goals of care discussion
--- NOTE | 2020-07-21 13:21 | CON ---
NEUROLOGY CONSULTATION DATE OF CONSULTATION: 07/21/2020 REASON FOR CONSULTATION: Altered mental status. HISTORY OF PRESENT ILLNESS: Mr. Ingram is an 89-year-old male with medical history significant for prior myocardial infarction, hyperlipidemia, prior CVA, chronic kidney disease, and hypertension, presented from the skilled nursing because of an acute change in mental status. The patient was recently admitted and discharged on 06/28/2020 after managed for altered mental status and at that time, he was diagnosed with seizure. He was discharged on Keppra 500 mg twice daily. The history is obtained from review of the medical records. According to the records, he is alert at baseline. He is alert and oriented x4, prior to the event, home staff, he stared in space and was unable to answer questions appropriately and became increasingly confused, which prompted his admission to the emergency room. He did complain of chest pain. On arrival to the emergency room, his blood pressure was 138/86. CT scan of the brain was done, which did not reveal any acute intracranial pathology. EKG showed paced rhythm with a heart rate of 62, no ST or T-wave changes and he was admitted for further evaluation. REVIEW OF SYSTEMS: Unobtainable due to mental status. PAST MEDICAL HISTORY: Coronary artery disease, hyperlipidemia, prior CVA, chronic kidney disease, and hypertension. PAST SURGICAL HISTORY: Not significant. Social HISTORY: The patient lives in the skilled nursing, resident. There is no documented history of alcohol or illegal drug abuse. Family history.,: No significant family history Allergies: No known drug allergies PHYSICAL EXAMINATION: 151/70 70 18 GENERAL: The patient is extremely somnolent. He does not follow commands. He does not maintain eye contact. CVS: Regular rate and rhythm. CHEST: Clear. ABDOMEN: Soft. NECK: Supple. NEUROLOGICAL: Mental status, the patient is alert and oriented. The patient is extremely somnolent. He does not follow command. He does not maintain eye contact. He does know his name. Cranial nerves; pupils, 4 mm, round and reactive to light. Face symmetric. Tongue midline. Moves neck in both directions. Cough positive. Corneals positive. No roving eye movements are seen or gaze preference. Motor, muscle tone and bulk are normal. Moving all 4 extremities equally and symmetrically. Sensory, withdraws to nailbed pressure bilaterally. Cerebellar, did not cooperate with the exam due to somnolence. Gait deferred due to the patient's safety reason. DATA REVIEWED: Reviewed the labs, which were significant for anemia, hemoglobin of 12.1, hematocrit of 37.1, and he also has chronic kidney disease with BUN of 40 and creatinine of 1.75. Head CT did not reveal any acute intracranial pathology. Lab results: WBC 6.6 thou/uL (4.8-10.8) 07/21/20 00:50 Hgb 12.1 g/dL (14.0-18.0) L 07/21/20 00:50 Hct 37.1 % (42.0-52.0) L 07/21/20 00:50 MCV 96.1 fL (78.0-98.0) 07/21/20 00:50 Plt Count 168 thou/uL (130-400) 07/21/20 00:50 Neutrophils % 60.5 % (42.0-75.0) 07/21/20 00:50 Sodium 141 mmol/L (136-145) 07/21/20 00:50 Potassium 4.9 mmol/L (3.5-5.1) 07/21/20 00:50 Chloride 112 mmol/L (98-107) H 07/21/20 00:50 Carbon Dioxide 20 mmol/L (23-31) L 07/21/20 00:50 BUN 40 mg/dL (8.4-25.7) H 07/21/20 00:50 Creatinine 1.75 mg/dL (0.7-1.3) H 07/21/20 00:50 Glucose 90 mg/dL (83-110) 07/21/20 00:50 Lactic Acid 0.9 mmol/L (0.5-2.2) 07/21/20 00:50 Calcium 8.9 mg/dL (7.8-10.44) 07/21/20 00:50 Total Bilirubin 0.3 mg/dL (0.2-1.2) 07/21/20 00:50 AST 40 U/L (5-34) H 07/21/20 00:50 ALT 51 U/L (8-55) 07/21/20 00:50 Alkaline Phosphatase 107 U/L (40-110) 07/21/20 00:50 CK-MB (CK-2) 1.6 ng/mL (0-6.6) 07/21/20 04:07 Troponin I 0.220 ng/mL (< 0.028) H 07/21/20 07:16 B-Natriuretic Peptide 619.0 pg/mL (0-100) H 07/21/20 00:50 Serum Total Protein 6.6 g/dL (5.8-8.1) 07/21/20 00:50 Albumin 3.2 g/dL (3.4-4.8) L 07/21/20 00:50 Urine Ketones Negative mg/dL (Negative) 07/21/20 01:31 Urine Blood 1+ (Negative) A 07/21/20 01:31 Urine Nitrite Negative (Negative) 07/21/20 01:31 Ur Leukocyte Esterase Negative Erasto/uL (Negative) 07/21/20 01:31 Urine RBC 7-10 HPF (0-3) A 07/21/20 01:31 Urine WBC 0-3 HPF (0-3) 07/21/20 01:31 Ur Squamous Epith Cells None Seen HPF (0-3) 07/21/20 01:31 Urine Bacteria None Seen HPF (None Seen) 07/21/20 01:31 ASSESSMENT: Mr. Jeancarlos Ingram is an 89-year-old male with history significant for coronary artery disease, hypertension, hyperlipidemia, resident of skilled nursing, presented with altered mental status. Initial evaluation was considered for a [id number] myocardial infarction, so Cardiology is involved. Altered mental status may be secondary to breakthrough seizures as the staring episode was noted by the nursing staff. We will schedule a followup EEG to see the extent of cortical irritability, which may require more aggressive management of the seizure disorder. Continue Keppra 500 mg IV q.12. Observe seizure precautions. Ativan 2 mg IV for seizure greater than 2 minutes. Neuro checks every [address] reviewed, which was negative for acute intracranial pathology. Continue home medications. Continue medical management per primary team and cardiology. PT/OT/Speech. DVT prophylaxis. We will continue to follow. Thank you for the consult. Job ID: [id number] MTDD
[2020-07-21 13:55] LABS: SARS-CoV-2 MS2 Positive; SARS-CoV-2 N Gene Negative; SARS-CoV-2 S Gene Negative; SARS-CoV-2 by NAA Not Detected (NotDetected); SARS-CoV-2 orf1ab Negative
[2020-07-21] MEDS: Dextrose 5 % And 0.9 % NaCl 1,000 ML IV SCH (14:27)
--- NOTE | 2020-07-21 15:40 | PDOC.EEG ---
Neurology EEG Report - Report Report: This EEG was performed using 24 channel [employer] video digital EEG machine with 24 disc electrodes. This was an extended 2 hours 4 minutes of EEG recording. Digital analysis of the EEG was done for Rich and seizure detection which revealed no abnormalities. Background: The posterior background rhythm was not observed. Photic stimulation: No response seen with photic stimulation. Hyperventilation: Not performed. Sleep: No stage change was observed. EEG diagnosis: Generalized irregular theta activity seen throughout the recording. Absence of posterior background rhythm. Clinical interpretation: This EEG is consistent with moderate generalized nonspecific cerebral dysf unction.
[2020-07-21] MEDS: Enoxaparin Sodium 60 MG/0.6 ML SYRINGE SC SCH (21:21)
[2020-07-22] MEDS: Dextrose 5 % And 0.9 % NaCl 1,000 ML IV SCH ×2 (03:54→16:43)
[2020-07-22 05:00] LABS: #Eosinphils 0.4 thou/uL (0.0-0.7); #Lymphocytes 1.6 thou/uL (1.20-3.40); #Monocytes 0.8 thou/uL (0.11-0.59); #Neutrophils 3.8 thou/uL (1.40-6.50); %Basophils 0.5 % (0.0-1.0); %Eosinophils 6.2 % (0.0-10.0); %Lymphocytes 24.4 % (21.0-51.0); %Monocytes 11.5 % (0.0-10.0); %Neutrophils 57.4 % (42.0-75.0); Mean Corpuscular HGB CONC 31.7 g/dL (32.0-36.0); Mean Corpuscular Hemoglobin 30.7 pg (27.0-31.0); Mean Platelet Volume 7.7 fL (7.4-10.4); Platelet Count 134 thou/uL (130-400); RBC Distribution Width 12.7 % (11.5-14.5); Red Blood Cell (RBC) Count 4.56 mill/uL (4.70-6.10); White Blood Cell (WBC) Count 6.6 thou/uL (4.8-10.8)
[2020-07-22 05:08] LABS: Anion Gap 15 mmol/L (10-20); BUN (Urea Nitrogen) 30 mg/dL (8.4-25.7); Calc. Creatinine Clearance 29 mL/min (70-130); Calcium 8.8 mg/dL (7.8-10.44); Carbon Dioxide 16 mmol/L (23-31); Chloride 112 mmol/L (98-107); Estimated GFR-MDRD 42; Glucose 98 mg/dL (83-110); Potassium 4.5 mmol/L (3.5-5.1); Sodium 138 mmol/L (136-145)
[2020-07-22] MEDS ORDERED: FLU VACC QS2020-21(65YR UP)/PF 240 MCG/0.7 ML SYRINGE IM ONE (09:00)
[2020-07-22] MEDS: Enoxaparin Sodium 60 MG/0.6 ML SYRINGE SC SCH (09:12)
[2020-07-22] MEDS ORDERED: Nitroglycerin 0.4 MG TAB (25 Tab Bottle) SL PRN (09:40)
[2020-07-22] MEDS ORDERED: Acetaminophen 325 MG TAB PO PRN (09:42)
[2020-07-22] MEDS ORDERED: Acetaminophen 500 MG TAB PO PRN (09:42)
[2020-07-22] MEDS ORDERED: levETIRAcetam 500 MG TAB PO SCH ×2 (09:45→21:00)
[2020-07-22] MEDS ORDERED: Aspirin 81 mg Enteric Coated Tablet PO SCH (09:45)
[2020-07-22] MEDS ORDERED: Metoprolol Tartrate 25 MG TAB PO SCH (09:45)
--- NOTE | 2020-07-22 13:06 | PDOC.NEUPN ---
- Subjective Encounter Date: 07/22/20 Subjective: Patient continues to remain confused and does not follow commands - Objective Vital Signs & Weight: Vital Signs (12 hours) Temp Pulse Resp BP Pulse Ox 07/22/20 11:37 98.1 F 60 12 147/67 H 93 L 07/22/20 08:07 97.8 F 60 16 130/61 98 07/22/20 03:57 97.3 F L 61 12 132/63 98 Weight Weight 142 lb I&O: 07/21/20 07/22/20 07/23/20 06:59 06:59 06:59 Intake Total 1180 Balance 1180 Result Diagrams: 07/22/20 04:45 07/22/20 04:45 Radiology Reviewed by me: Yes EKG Reviewed by me: Yes ROS - Review of Systems ROS unobtainable: due to mental status - Medication Medications: Active Medications Generic Name Dose Route Start Last Admin Trade Name Freq PRN Reason Stop Dose Admin Dextrose/Sodium Chloride 1,000 mls @ 75 mls/hr 07/21/20 13:30 07/22/20 03:54 D5 0.9% Ns IV 1,000 mls .[id number] DAYNA Administration - Exam General Appearance: ill appearing Eye: PERRL ENT: normocephalic atraumatic Neck: supple Respiratory: CTAB Cardiovascular: RRR Gastrointestinal: soft Extremities: no cyanosis Skin: normal turgor Neurological: no new deficit Musculoskeletal: generalized weakness PSYCH: not oriented Results - Labs Result Diagrams: 07/22/20 04:45 07/22/20 04:45 Lab results: WBC 6.6 thou/uL (4.8-10.8) 07/22/20 04:45 Hgb 14.0 g/dL (14.0-18.0) 07/22/20 04:45 Hct 44.3 % (42.0-52.0) 07/22/20 04:45 MCV 97.0 fL (78.0-98.0) 07/22/20 04:45 Plt Count 134 thou/uL (130-400) 07/22/20 04:45 Neutrophils % 57.4 % (42.0-75.0) 07/22/20 04:45 Sodium 138 mmol/L (136-145) 07/22/20 04:45 Potassium 4.5 mmol/L (3.5-5.1) 07/22/20 04:45 Chloride 112 mmol/L (98-107) H 07/22/20 04:45 Carbon Dioxide 16 mmol/L (23-31) L 07/22/20 04:45 BUN 30 mg/dL (8.4-25.7) H 07/22/20 04:45 Creatinine 1.56 mg/dL (0.7-1.3) H 07/22/20 04:45 Glucose 98 mg/dL (83-110) 07/22/20 04:45 Lactic Acid 0.9 mmol/L (0.5-2.2) 07/21/20 00:50 Calcium 8.8 mg/dL (7.8-10.44) 07/22/20 04:45 Total Bilirubin 0.3 mg/dL (0.2-1.2) 07/21/20 00:50 AST 40 U/L (5-34) H 07/21/20 00:50 ALT 51 U/L (8-55) 07/21/20 00:50 Alkaline Phosphatase 107 U/L (40-110) 07/21/20 00:50 CK-MB (CK-2) 1.6 ng/mL (0-6.6) 07/21/20 04:07 Troponin I 0.220 ng/mL (< 0.028) H 07/21/20 07:16 B-Natriuretic Peptide 619.0 pg/mL (0-100) H 07/21/20 00:50 Serum Total Protein 6.6 g/dL (5.8-8.1) 07/21/20 00:50 Albumin 3.2 g/dL (3.4-4.8) L 07/21/20 00:50 Urine Ketones Negative mg/dL (Negative) 07/21/20 01:31 Urine Blood 1+ (Negative) A 07/21/20 01:31 Urine Nitrite Negative (Negative) 07/21/20 01:31 Ur Leukocyte Esterase Negative Erasto/uL (Negative) 07/21/20 01:31 Urine RBC 7-10 HPF (0-3) A 07/21/20 01:31 Urine WBC 0-3 HPF (0-3) 07/21/20 01:31 Ur Squamous Epith Cells None Seen HPF (0-3) 07/21/20 01:31 Urine Bacteria None Seen HPF (None Seen) 07/21/20 01:31 PN A/P (1) AMS (altered mental status) Code(s): R41.82 - ALTERED MENTAL STATUS, UNSPECIFIED Status: Acute (2) CAD (coronary artery disease) Code(s): I25.10 - ATHSCL HEART DISEASE OF [place] CORONARY ARTERY W/O ANG PCTRS Status: Acute (3) HLD (hyperlipidemia) Code(s): E78.5 - HYPERLIPIDEMIA, UNSPECIFIED Status: Acute (4) History of CVA (cerebrovascular accident) Code(s): Z86.73 - PRSNL HX OF TIA (TIA), AND CEREB INFRC W/O RESID DEFICITS Status: Acute (5) NSTEMI (non-ST elevated myocardial infarction) Code(s): I21.4 - NON-ST ELEVATION (NSTEMI) MYOCARDIAL INFARCTION Status: Acute (6) New onset seizure Code(s): R56.9 - UNSPECIFIED CONVULSIONS Status: Acute (7) CKD (chronic kidney disease), stage III Code(s): N18.30 - CHRONIC KIDNEY DISEASE, STAGE 3 UNSPECIFIED Status: Chronic (8) Cardiomyopathy Code(s): I42.9 - CARDIOMYOPATHY, UNSPECIFIED Status: Chronic - Plan Daily Plan: PT/OT, speech therapy, DVT proph w/SCDs 89-year-old male with medical history significant for dementia and seizures presented to the hospital with altered mental status and an episode of staring at the alf. Most likely breakthrough seizure versus progressive dementia with superimposed delirium. EEG reviewed which was negative for seizure activity and no interval change when compared to the prior EEG. Continue Keppra 500 mg IV every 12 hours. Neurochecks every 4 hours. Observe seizure precautions. Ativan 2 mg IV for seizure greater than 2 minutes. Telemetry Non-ST elevation MIconsider cardiology input Infectious and metabolic etiology should be ruled out Continue medical management per primary team PT/OT/speech. DVT prophylaxis.
[2020-07-22] MEDS ORDERED: Labetalol HCl 100 MG/20 ML VIAL SLOW IVP PRN (14:37)
[2020-07-22] MEDS: Aspirin 300 MG Suppository PR SCH (16:43)
[2020-07-22] MEDS ORDERED: Non-Formulary Item 1 EACH (Carboxymethylcellulos/Glycerin [Refresh Optive Eye Drops] 15 M EA EYE SCH (21:00)
--- NOTE | 2020-07-22 21:31 | PDOC.EVN ---
Event Note - Event Note Event Note: Notified by RN patient has not been receiving PO meds. Failed Speech Assessment due to decreased LOC. I have changed Keppra from PO to IV.
[2020-07-22] MEDS: Polyvinyl Alcohol 1.4%/Povidone 0.6% Opth Drops EA EYE SCH (21:45)
[2020-07-22] MEDS: Atorvastatin Calcium 40 MG TAB PO SCH (21:45)
[2020-07-22] MEDS: Metoprolol Tartrate 25 MG TAB PO SCH (21:45)
--- NOTE | 2020-07-22 22:43 | PDOC.HOSPP ---
- Subjective Encounter Date: 07/22/20 Encounter Time: 14:00 Subjective: patient seen and examined for altered mentation. Remains confused. Unsafe for any consistency for speech therapy. - Objective Vital Signs & Weight: Vital Signs (12 hours) Temp Pulse Resp BP BP Pulse Ox 07/22/20 19:25 97.5 F L 60 12 136/68 97 07/22/20 15:53 98.0 F 60 14 135/66 98 07/22/20 11:37 98.1 F 60 12 147/67 H 93 L Weight Weight 142 lb I&O: 07/21/20 07/22/20 07/23/20 06:59 06:59 06:59 Intake Total 1180 Balance 1180 Result Diagrams: 07/22/20 04:45 07/22/20 04:45 Additional Labs: Accuchecks 07/22/20 17:45 POC Glucose 78 Abnormal Lab Results - Last 48 hrs 07/21/20 00:50: Chloride 112 H, Carbon Dioxide 20 L, BUN 40 H, Creatinine 1.75 H, AST 40 H, Albumin 3.2 L, Albumin/Globulin Ratio 0.9 L 07/21/20 00:50: B-Natriuretic Peptide 619.0 H 07/21/20 00:50: Troponin I 0.212 H 07/21/20 00:50: RBC 3.86 L, Hgb 12.1 L, Hct 37.1 L, MCH 31.4 H, Monocytes # 0.6 H 07/21/20 01:31: Urine Blood 1+ A, Urine RBC 7-10 A, Amorphous Crystals Rare A 07/21/20 04:07: Troponin I 0.214 H 07/21/20 07:16: Troponin I 0.220 H 07/22/20 04:45: Chloride 112 H, Carbon Dioxide 16 L, BUN 30 H, Creatinine 1.56 H 07/22/20 04:45: RBC 4.56 L, MCHC 31.7 L, Monocytes % 11.5 H, Monocytes # 0.8 H Radiology Reviewed by me: Yes (CT brainnegative) EKG Reviewed by me: Yes (Sinus rhythm on telemetry) Hospitalist ROS - Review of Systems ROS unobtainable: due to mental status - Medication Medications: Active Medications Generic Name Dose Route Start Last Admin Trade Name Freq PRN Reason Stop Dose Admin Aspirin 300 mg 07/22/20 15:00 07/22/20 16:43 Aspirin 300 Mg Suppository MI 300 mg Q24HR DAYNA Administration Atorvastatin Calcium 40 mg 07/22/20 21:00 07/22/20 21:45 Atorvastatin Calcium 40 Mg Tab PO Not Given HS DAYNA Dextrose/Sodium Chloride 1,000 mls @ 75 mls/hr 07/21/20 13:30 07/22/20 16:43 D5 0.9% Ns IV 1,000 mls .[id number] DAYNA Administration Levetiracetam 500 mg/ Device 100 mls @ 200 mls/hr 07/22/20 21:45 07/22/20 21:45 IVPB 07/22/20 23:45 100 mls NOW DAYNA Administration Metoprolol Tartrate 6.25 mg 07/22/20 21:00 07/22/20 21:45 Metoprolol Tartrate 25 Mg Tab PO Not Given BID DAYNA Polyvinyl Alcohol/Povidone 0 each 07/22/20 21:00 07/22/20 21:45 Polyvinyl Alcohol 1.4%/Povidone 0.6% Opth Drops EA EYE 1 each BID DAYNA Administration - Exam General Appearance: ill appearing Heart: RRR, no gallops, no rubs, normal peripheral pulses Respiratory: no wheezes, no rales, no ronchi, normal chest expansion Gastrointestinal: soft, non-distended, no guarding, no rigidity Extremities: no cyanosis, no clubbing Musculoskeletal: generalized weakness Musculoskeletal - other findings: Neuro/psychcannot assess due to current mentation Hosp A/P - Plan DVT proph w/SCDs 89-year-old male with dementia and seizure disorder with recent hospitalization for seizure with non-ST elevation [place] presents with altered mentation at the nursing facility. EEG was negative. Neurology and cardiology have been consulted. Toxic metabolic encephalopathy Coronary artery disease Elevated troponins with recent non-ST elevation [place] Seizure disorder Swallow dysfunction CKD stage III Dementia Chronic systolic heart failure ejection fraction 35-40 percent Other issues H&P Plan: Await neurology and cardiology input. Continue gentle IV hydration until cleared by speech therapy. Continue Keppra. We will change Keppra to IV if unable to take po. Change Lovenox to DVT prophylaxis dose at prn labetalol. Palliative care consultation. Recheck labs in a.m. Reduce IV fluid due to history of congestive heart failure. Check vitamin B12 and folic acid in a.m.
[2020-07-23 05:57] LABS: ALT (SGPT) 30 U/L (8-55); AST (SGOT) 19 U/L (5-34); Alkaline Phosphatase 96 U/L (40-110); BUN (Urea Nitrogen) 22 mg/dL (8.4-25.7); Bilirubin, Total 0.5 mg/dL (0.2-1.2); Calc. Creatinine Clearance 30 mL/min (70-130); Calcium 8.7 mg/dL (7.8-10.44); Carbon Dioxide 16 mmol/L (23-31); Chloride 114 mmol/L (98-107); Estimated GFR-MDRD 43; Globulin 2.9 g/dL (2.4-3.5); Glucose 101 mg/dL (83-110); Magnesium 1.8 mg/dL (1.6-2.6); Phosphorus 2.8 mg/dL (2.3-4.7); Potassium 4.6 mmol/L (3.5-5.1); Protein, Total 5.9 g/dL (5.8-8.1); Sodium 140 mmol/L (136-145)
[2020-07-23 06:15] LABS: Anion Gap 15 mmol/L (10-20)
[2020-07-23] MEDS: Cyanocobalamin (Vitamin B-12) 1,000 MCG TAB PO SCH (08:57)
[2020-07-23] MEDS: Metoprolol Tartrate 25 MG TAB PO SCH ×2 (08:58→21:07)
[2020-07-23] MEDS ORDERED: Aspirin 81 mg Enteric Coated Tablet PO SCH (09:00)
[2020-07-23] MEDS: Dextrose 5 % And 0.9 % NaCl 1,000 ML IV SCH (09:18)
[2020-07-23] MEDS: Enoxaparin Sodium 30 MG/0.3 ML SYRINGE SC SCH (09:23)
[2020-07-23 10:12] LABS: #Eosinphils 0.4 thou/uL (0.0-0.7); #Lymphocytes 1.1 thou/uL (1.20-3.40); #Monocytes 0.7 thou/uL (0.11-0.59); #Neutrophils 3.6 thou/uL (1.40-6.50); %Basophils 0.5 % (0.0-1.0); %Eosinophils 7.2 % (0.0-10.0); %Lymphocytes 19.1 % (21.0-51.0); %Monocytes 11.9 % (0.0-10.0); %Neutrophils 61.4 % (42.0-75.0); Hemoglobin 13.3 g/dL (14.0-18.0); Mean Corpuscular HGB CONC 33.5 g/dL (32.0-36.0); Mean Corpuscular Hemoglobin 31.8 pg (27.0-31.0); Mean Corpuscular Volume 94.9 fL (78.0-98.0); Mean Platelet Volume 7.7 fL (7.4-10.4); Platelet Count 144 thou/uL (130-400); RBC Distribution Width 12.6 % (11.5-14.5); Red Blood Cell (RBC) Count 4.17 mill/uL (4.70-6.10); White Blood Cell (WBC) Count 5.8 thou/uL (4.8-10.8)
--- NOTE | 2020-07-23 11:40 | PDOC.HOSPP ---
- Subjective Encounter Date: 07/23/20 Encounter Time: 11:38 Subjective: Patient seen and evaluated today. This is an 89-year-old patient who resides at the detention was admitted to the hospital for altered mental status. Patient is awake and oriented to self only. No family at the bedside and he is unable to answer any questions. It appears that there was some suspicion that he had a seizure and he has been managed for seizure. He also had elevated troponin and cardiology evaluated him briefly and recommended medical management. Patient has difficulty with p.o. intake at the moment. Speech therapist evaluation is ongoing. Palliative care will be consulted. I will speak with family about goals of care. - Objective Vital Signs & Weight: Vital Signs (12 hours) Temp Pulse Resp BP BP Pulse Ox 07/23/20 07:31 97.5 F L 65 16 150/95 H 96 07/23/20 04:54 97.6 F 61 16 146/71 H 95 07/23/20 04:37 97.6 F 61 16 146/71 H 95 Weight Weight 142 lb I&O: 07/22/20 07/23/20 07/24/20 06:59 06:59 05:59 Intake Total 1180 Output Total 225 Balance 1180 -225 Result Diagrams: 07/23/20 09:50 07/23/20 04:47 Additional Labs: Accuchecks 07/23/20 07/23/20 07/22/20 05:55 00:55 17:45 POC Glucose 72 90 78 Radiology Reviewed by me: Yes EKG Reviewed by me: Yes Hospitalist ROS - Review of Systems ROS unobtainable: due to mental status Constitutional: reports: fever Neurological: reports: weakness, change in speech, confusion - Medication Medications: Active Medications Generic Name Dose Route Start Last Admin Trade Name Freq PRN Reason Stop Dose Admin Aspirin 300 mg 07/22/20 15:00 07/22/20 16:43 Aspirin 300 Mg Suppository PA 300 mg Q24HR DAYNA Administration Atorvastatin Calcium 40 mg 07/22/20 21:00 07/22/20 21:45 Atorvastatin Calcium 40 Mg Tab PO Not Given HS DAYNA Cyanocobalamin 1,000 mcg 07/23/20 09:00 07/23/20 08:57 Cyanocobalamin (Vitamin B-12) 1,000 Mcg Tab PO Not Given DAILY DAYNA Enoxaparin Sodium 30 mg 07/23/20 09:00 07/23/20 09:23 Enoxaparin Sodium 30 Mg/0.3 Ml Syringe SC 30 mg 0900 DAYNA Administration Levetiracetam 500 mg/ Device 100 mls @ 200 mls/hr 07/23/20 09:00 07/23/20 09:23 IVPB 100 mls BID DAYNA Administration Dextrose/Sodium Chloride 1,000 mls @ 50 mls/hr 07/22/20 22:48 07/23/20 09:18 D5 0.9% Ns IV 1,000 mls .Q20H DAYNA Administration Metoprolol Tartrate 6.25 mg 07/22/20 21:00 07/23/20 08:58 Metoprolol Tartrate 25 Mg Tab PO Not Given BID DAYNA Polyvinyl Alcohol/Povidone 0 each 07/22/20 21:00 07/22/20 21:45 Polyvinyl Alcohol 1.4%/Povidone 0.6% Opth Drops EA EYE 1 each BID DAYNA Administration - Exam General Appearance: awake alert, ill appearing Eye: PERRL ENT: normocephalic atraumatic, dry oral mucosa Heart: RRR, no murmur, no gallops, no rubs, normal peripheral pulses Respiratory: CTAB, no rales, no ronchi, normal chest expansion Gastrointestinal: soft, non-tender, non-distended, normal bowel sounds, no palpable masses Skin: tenting Musculoskeletal: generalized weakness, diffuse muscle atrophy Psychiatric: normal affect, oriented to person Hosp A/P (1) AMS (altered mental status) Code(s): R41.82 - ALTERED MENTAL STATUS, UNSPECIFIED Status: Acute Plan: This is likely related to dementia. (2) CAD (coronary artery disease) Code(s): I25.10 - ATHSCL HEART DISEASE OF [place] CORONARY ARTERY W/O ANG PCTRS Status: Chronic Qualifiers: Coronary Disease-Associated Artery/Lesion type: [place] artery [place] vs. transplanted heart: [place] heart Associated angina: without angina Qualified Code(s): I25.10 - Atherosclerotic heart disease of [place] coronary artery without angina pectoris Plan: We will resume home medicines as deemed appropriate. Cardiology does not plan any further interventions. (3) HLD (hyperlipidemia) Code(s): E78.5 - HYPERLIPIDEMIA, UNSPECIFIED Status: Acute (4) History of CVA (cerebrovascular accident) Code(s): Z86.73 - PRSNL HX OF TIA (TIA), AND CEREB INFRC W/O RESID DEFICITS Status: Chronic (5) CKD (chronic kidney disease), stage III Code(s): N18.30 - CHRONIC KIDNEY DISEASE, STAGE 3 UNSPECIFIED Status: Chronic (6) Cardiomyopathy Code(s): I42.9 - CARDIOMYOPATHY, UNSPECIFIED Status: Chronic Qualifiers: Cardiomyopathy type: ischemic Qualified Code(s): I25.5 - Ischemic cardiomyopathy - Plan old records reviewed/req, speech therapy Consults: Palliative Care #1. Toxic metabolic encephalopathy. Likely combination of electrolyte derangements versus dementia. Seizures cannot be excluded. He does have a prior history of seizures. He has been on Keppra. We appreciate neurologist ongoing evaluation. #2. History of seizures. Continue Keppra per neurology recommendations. 3. Coronary artery disease. He was evaluated earlier by cardiology and they recommend medical management at this time. There are no further interventions planned. 4. Dysphagia Speech therapist evaluation is ongoing. We will defer to them about further recommendations. This patient's prognosis is guarded at best. We will discuss with family about goals of care. I am going to recommend comfort care.
[2020-07-23] MEDS: Polyvinyl Alcohol 1.4%/Povidone 0.6% Opth Drops EA EYE SCH ×2 (12:11→21:07)
[2020-07-23] MEDS ORDERED: Polyvinyl Alcohol 1.4%/Povidone 0.6% Opth Drops EA EYE SCH (12:15)
--- NOTE | 2020-07-23 13:49 | PDOC.NEUPN ---
- Subjective Encounter Date: 07/23/20 Subjective: Mr. Rosa seems much better today. He is oriented to his name and much more calm than yesterday. Per nursing staff, he also passed the swallow eval. No further seizures since admission - Objective Vital Signs & Weight: Vital Signs (12 hours) Temp Pulse Resp BP BP Pulse Ox 07/23/20 11:56 98.4 F 68 20 145/73 H 100 07/23/20 07:31 97.5 F L 65 16 150/95 H 96 07/23/20 04:54 97.6 F 61 16 146/71 H 95 07/23/20 04:37 97.6 F 61 16 146/71 H 95 Weight Weight 142 lb I&O: 07/22/20 07/23/20 07/24/20 06:59 06:59 05:59 Intake Total 1180 Output Total 225 Balance 1180 -225 Result Diagrams: 07/23/20 09:50 07/23/20 04:47 Additional Labs: Accuchecks 07/23/20 07/23/20 07/22/20 05:55 00:55 17:45 POC Glucose 72 90 78 Radiology Reviewed by me: Yes EKG Reviewed by me: Yes ROS - Review of Systems ROS unobtainable: due to mental status - Medication Medications: Active Medications Generic Name Dose Route Start Last Admin Trade Name Yanna PRN Reason Stop Dose Admin Aspirin 300 mg 07/22/20 15:00 07/22/20 16:43 Aspirin 300 Mg Suppository [place] 300 mg Q24HR DAYNA Administration Atorvastatin Calcium 40 mg 07/22/20 21:00 07/22/20 21:45 Atorvastatin Calcium 40 Mg Tab PO Not Given HS DAYNA Cyanocobalamin 1,000 mcg 07/23/20 09:00 07/23/20 08:57 Cyanocobalamin (Vitamin B-12) 1,000 Mcg Tab PO Not Given DAILY DAYNA Enoxaparin Sodium 30 mg 07/23/20 09:00 07/23/20 09:23 Enoxaparin Sodium 30 Mg/0.3 Ml Syringe SC 30 mg 0900 DAYNA Administration Levetiracetam 500 mg/ Device 100 mls @ 200 mls/hr 07/23/20 09:00 07/23/20 09:23 IVPB 100 mls BID DAYNA Administration Dextrose/Sodium Chloride 1,000 mls @ 50 mls/hr 07/22/20 22:48 07/23/20 09:18 D5 0.9% Ns IV 1,000 mls .Q20H DAYNA Administration Metoprolol Tartrate 6.25 mg 07/22/20 21:00 07/23/20 08:58 Metoprolol Tartrate 25 Mg Tab PO Not Given BID DAYNA Polyvinyl Alcohol/Povidone 0 each 07/22/20 21:00 07/23/20 12:11 Polyvinyl Alcohol 1.4%/Povidone 0.6% Opth Drops EA EYE Not Given BID DAYNA - Exam General Appearance: awake alert Eye: PERRL ENT: normocephalic atraumatic Neck: supple Respiratory: CTAB Cardiovascular: RRR Gastrointestinal: soft Extremities: no cyanosis Skin: normal turgor Neurological: no new deficit Musculoskeletal: no muscle wasting PSYCH: A&O x 3 Results - Labs Result Diagrams: 07/23/20 09:50 07/23/20 04:47 Lab results: WBC 5.8 thou/uL (4.8-10.8) 07/23/20 09:50 Hgb 13.3 g/dL (14.0-18.0) L 07/23/20 09:50 Hct 39.6 % (42.0-52.0) L 07/23/20 09:50 MCV 94.9 fL (78.0-98.0) 07/23/20 09:50 Plt Count 144 thou/uL (130-400) 07/23/20 09:50 Neutrophils % 61.4 % (42.0-75.0) 07/23/20 09:50 Sodium 140 mmol/L (136-145) 07/23/20 04:47 Potassium 4.6 mmol/L (3.5-5.1) 07/23/20 04:47 Chloride 114 mmol/L (98-107) H 07/23/20 04:47 Carbon Dioxide 16 mmol/L (23-31) L 07/23/20 04:47 BUN 22 mg/dL (8.4-25.7) 07/23/20 04:47 Creatinine 1.52 mg/dL (0.7-1.3) H 07/23/20 04:47 Glucose 101 mg/dL (83-110) 07/23/20 04:47 Lactic Acid 0.9 mmol/L (0.5-2.2) 07/21/20 00:50 Calcium 8.7 mg/dL (7.8-10.44) 07/23/20 04:47 Total Bilirubin 0.5 mg/dL (0.2-1.2) 07/23/20 04:47 AST 19 U/L (5-34) 07/23/20 04:47 ALT 30 U/L (8-55) 07/23/20 04:47 Alkaline Phosphatase 96 U/L (40-110) 07/23/20 04:47 CK-MB (CK-2) 1.6 ng/mL (0-6.6) 07/21/20 04:07 Troponin I 0.220 ng/mL (< 0.028) H 07/21/20 07:16 B-Natriuretic Peptide 619.0 pg/mL (0-100) H 07/21/20 00:50 Serum Total Protein 5.9 g/dL (5.8-8.1) 07/23/20 04:47 Albumin 3.0 g/dL (3.4-4.8) L 07/23/20 04:47 Urine Ketones Negative mg/dL (Negative) 07/21/20 01:31 Urine Blood 1+ (Negative) A 07/21/20 01:31 Urine Nitrite Negative (Negative) 07/21/20 01:31 Ur Leukocyte Esterase Negative Erasto/uL (Negative) 07/21/20 01:31 Urine RBC 7-10 HPF (0-3) A 07/21/20 01:31 Urine WBC 0-3 HPF (0-3) 07/21/20 01:31 Ur Squamous Epith Cells None Seen HPF (0-3) 07/21/20 01:31 Urine Bacteria None Seen HPF (None Seen) 07/21/20 01:31 - Radiology Interpretation CT scan - head Additional Comment: No acute intracranial pathology PN A/P (1) AMS (altered mental status) Code(s): R41.82 - ALTERED MENTAL STATUS, UNSPECIFIED Status: Acute (2) CAD (coronary artery disease) Code(s): I25.10 - ATHSCL HEART DISEASE OF [place] CORONARY ARTERY W/O ANG PCTRS Status: Chronic Qualifiers: Coronary Disease-Associated Artery/Lesion type: [place] artery [place] vs. transplanted heart: [place] heart Associated angina: without angina Qualified Code(s): I25.10 - Atherosclerotic heart disease of [place] coronary artery without angina pectoris (3) HLD (hyperlipidemia) Code(s): E78.5 - HYPERLIPIDEMIA, UNSPECIFIED Status: Acute (4) History of CVA (cerebrovascular accident) Code(s): Z86.73 - PRSNL HX OF TIA (TIA), AND CEREB INFRC W/O RESID DEFICITS Status: Chronic (5) NSTEMI (non-ST elevated myocardial infarction) Code(s): I21.4 - NON-ST ELEVATION (NSTEMI) MYOCARDIAL INFARCTION Status: Acute (6) New onset seizure Code(s): R56.9 - UNSPECIFIED CONVULSIONS Status: Acute (7) CKD (chronic kidney disease), stage III Code(s): N18.30 - CHRONIC KIDNEY DISEASE, STAGE 3 UNSPECIFIED Status: Chronic (8) Cardiomyopathy Code(s): I42.9 - CARDIOMYOPATHY, UNSPECIFIED Status: Chronic Qualifiers: Cardiomyopathy type: ischemic Qualified Code(s): I25.5 - Ischemic cardiomyopathy - Plan Daily Plan: PT/OT, speech therapy, DVT proph w/SCDs 89-year-old male with medical history significant for dementia and seizures presented to the hospital with altered mental status and an episode of staring at the care home. Most likely breakthrough seizure versus progressive dementia with superimposed delirium. Patient condition improved today and he is oriented to person and much more calm today EEG reviewed which was negative for seizure activity and no interval change when compared to the prior EEG. Continue Keppra 500 mg IV every 12 hours. Consider switching to p.o. once patient is able to tolerate oral intake. Neurochecks every 4 hours. Observe seizure precautions. Ativan 2 mg IV for seizure greater than 2 minutes. Telemetry Non-ST elevation MIconsider cardiology input Infectious and metabolic etiology should be ruled out Continue medical management per primary team PT/OT/speech. DVT prophylaxis. Plan discussed with the nursing staff
[2020-07-23] MEDS: Aspirin 300 MG Suppository PR SCH (14:29)
[2020-07-23] MEDS: Atorvastatin Calcium 40 MG TAB PO SCH (21:07)
[2020-07-24] MEDS: Dextrose 5 % And 0.9 % NaCl 1,000 ML IV SCH ×2 (05:09→21:10)
[2020-07-24 05:15] LABS: #Basophils 0.1 thou/uL (0.0-0.2); #Eosinphils 0.3 thou/uL (0.0-0.7); #Lymphocytes 1.7 thou/uL (1.20-3.40); #Monocytes 0.7 thou/uL (0.11-0.59); #Neutrophils 3.5 thou/uL (1.40-6.50); %Eosinophils 5.4 % (0.0-10.0); %Monocytes 10.8 % (0.0-10.0); %Neutrophils 55.7 % (42.0-75.0); Mean Corpuscular HGB CONC 33.6 g/dL (32.0-36.0); Mean Corpuscular Hemoglobin 31.8 pg (27.0-31.0); Mean Corpuscular Volume 94.7 fL (78.0-98.0); Mean Platelet Volume 7.8 fL (7.4-10.4); Platelet Count 155 thou/uL (130-400); RBC Distribution Width 12.5 % (11.5-14.5); Red Blood Cell (RBC) Count 3.77 mill/uL (4.70-6.10); White Blood Cell (WBC) Count 6.3 thou/uL (4.8-10.8)
[2020-07-24 05:43] LABS: ALT (SGPT) 30 U/L (8-55); AST (SGOT) 21 U/L (5-34); Albumin 3.3 g/dL (3.4-4.8); Alkaline Phosphatase 97 U/L (40-110); Anion Gap 14 mmol/L (10-20); BUN (Urea Nitrogen) 19 mg/dL (8.4-25.7); Bilirubin, Total 0.5 mg/dL (0.2-1.2); Calc. Creatinine Clearance 28 mL/min (70-130); Calcium 9.1 mg/dL (7.8-10.44); Carbon Dioxide 19 mmol/L (23-31); Chloride 113 mmol/L (98-107); Estimated GFR-MDRD 40; Globulin 3.2 g/dL (2.4-3.5); Glucose 90 mg/dL (83-110); Potassium 4.1 mmol/L (3.5-5.1); Protein, Total 6.5 g/dL (5.8-8.1); Sodium 142 mmol/L (136-145)
--- NOTE | 2020-07-24 09:02 | PDOC.HOSPP ---
- Subjective Encounter Date: 07/24/20 Encounter Time: 09:00 Subjective: Patient seen and evaluated this morning. He remains clinically about the same. This is an 89-year-old patient with a history of seizure disorder apparently diagnosed during his last admission who appears to have had yet another episode of seizure at the senior care prompting this transfer back to the hospital. Patient has remained completely confused and disoriented and really not providing much in terms of history. He will have moments where he is oriented to self only but does about the best that he can get. I attempted to reach family on the phone yesterday to discuss goals of care but did not get hold of the son. Nursing staff reports that patient is tolerating diet recommended by speech therapy. We will continue this for now. We will continue Keppra per neurology recommendations. We will plan on discharge back to his senior care hopefully within the next 24 hours. - Objective Vital Signs & Weight: Vital Signs (12 hours) Temp Pulse Resp BP Pulse Ox 07/24/20 07:58 97.3 F L 60 20 151/67 H 93 L 07/23/20 23:29 98.6 F 60 20 123/62 93 L Weight Weight 142 lb I&O: 07/23/20 07/24/20 07/25/20 07:59 06:59 06:59 Intake Total Output Total Balance Result Diagrams: 07/24/20 04:44 07/24/20 04:44 Additional Labs: Accuchecks 07/24/20 07/24/20 07/23/20 06:16 00:07 18:08 POC Glucose 79 83 93 07/23/20 14:40 POC Glucose 84 Radiology Reviewed by me: Yes EKG Reviewed by me: Yes Hospitalist ROS - Review of Systems ROS unobtainable: due to mental status Gastrointestinal: reports: nausea Neurological: reports: weakness, confusion - Medication Medications: Active Medications Generic Name Dose Route Start Last Admin Trade Name Freq PRN Reason Stop Dose Admin Aspirin 300 mg 07/22/20 15:00 07/23/20 14:29 Aspirin 300 Mg Suppository [place] 300 mg Q24HR DAYNA Administration Atorvastatin Calcium 40 mg 07/22/20 21:00 07/23/20 21:07 Atorvastatin Calcium 40 Mg Tab PO Not Given HS DAYNA Cyanocobalamin 1,000 mcg 07/23/20 09:00 07/23/20 08:57 Cyanocobalamin (Vitamin B-12) 1,000 Mcg Tab PO Not Given DAILY DAYNA Enoxaparin Sodium 30 mg 07/23/20 09:00 07/23/20 09:23 Enoxaparin Sodium 30 Mg/0.3 Ml Syringe SC 30 mg 0900 DAYNA Administration Levetiracetam 500 mg/ Device 100 mls @ 200 mls/hr 07/23/20 09:00 07/23/20 21:06 IVPB 100 mls BID DAYNA Administration Dextrose/Sodium Chloride 1,000 mls @ 50 mls/hr 07/22/20 22:48 07/24/20 05:09 D5 0.9% Ns IV 1,000 mls .Q20H DAYNA Administration Metoprolol Tartrate 6.25 mg 07/22/20 21:00 07/23/20 21:07 Metoprolol Tartrate 25 Mg Tab PO Not Given BID DAYNA Polyvinyl Alcohol/Povidone 0 each 07/22/20 21:00 07/23/20 21:07 Polyvinyl Alcohol 1.4%/Povidone 0.6% Opth Drops EA EYE Not Given BID DAYNA Sodium Chloride 10 ml 07/22/20 09:40 07/23/20 21:07 Flush - Normal Saline 10 Ml Syringe IVF 10 ml PRN PRN Administration Saline Flush - Exam General Appearance: awake alert, ill appearing Eye: PERRL ENT: dry oral mucosa Neck: supple, symmetric, no JVD, no lymphadenopathy Heart: RRR, no murmur, no gallops, no rubs, normal peripheral pulses Respiratory: CTAB, no wheezes, no rales, normal chest expansion, rhonchi Gastrointestinal: soft, non-tender, non-distended, normal bowel sounds, no palpable masses, no hepatomegaly, no splenomegaly Extremities: no edema, clubbing Skin: normal turgor Neurological: no new deficit Musculoskeletal: normal tone, generalized weakness, diffuse muscle atrophy Psychiatric: normal affect, not oriented Hosp A/P (1) AMS (altered mental status) Code(s): R41.82 - ALTERED MENTAL STATUS, UNSPECIFIED Status: Acute Qualifiers: Altered mental status type: disorientation Qualified Code(s): R41.0 - Disorientation, unspecified (2) CAD (coronary artery disease) Code(s): I25.10 - ATHSCL HEART DISEASE OF [place] CORONARY ARTERY W/O ANG PCTRS Status: Chronic Qualifiers: Coronary Disease-Associated Artery/Lesion type: [place] artery [place] vs. transplanted heart: [place] heart Associated angina: without angina Qualified Code(s): I25.10 - Atherosclerotic heart disease of [place] coronary artery without angina pectoris (3) HLD (hyperlipidemia) Code(s): E78.5 - HYPERLIPIDEMIA, UNSPECIFIED Status: Acute (4) History of CVA (cerebrovascular accident) Code(s): Z86.73 - PRSNL HX OF TIA (TIA), AND CEREB INFRC W/O RESID DEFICITS Status: Chronic (5) CKD (chronic kidney disease), stage III Code(s): N18.30 - CHRONIC KIDNEY DISEASE, STAGE 3 UNSPECIFIED Status: Chronic (6) Cardiomyopathy Code(s): I42.9 - CARDIOMYOPATHY, UNSPECIFIED Status: Chronic Qualifiers: Cardiomyopathy type: ischemic Qualified Code(s): I25.5 - Ischemic cardiomyopathy - Plan #1. Toxic metabolic encephalopathy. Likely combination of electrolyte derangements versus dementia. Seizures cannot be excluded. He does have a prior history of seizures. He has been on Keppra. We appreciate neurologist ongoing evaluation. 07/24/2020. Patient remains clinically the same with no appreciable change overnight. He will continue the same clinical management. We will begin the process of discharge planning. He will likely be discharged back to his senior care. #2. History of seizures. Continue Keppra per neurology recommendations. 3. Coronary artery disease. He was evaluated earlier by cardiology and they recommend medical management at this time. There are no further interventions planned. 07/24/2020. Continue medical management. No planned cardiac intervention. 4. Dysphagia Speech therapist evaluation is ongoing. We will defer to them about further recommendations. 07/24/2020. We will continue dietary recommendations as above. This patient's prognosis is guarded at best. We will discuss with family about goals of care. I am going to recommend comfort care.
[2020-07-24] MEDS: Metoprolol Tartrate 25 MG TAB PO SCH ×3 (09:55→21:08)
[2020-07-24] MEDS: Enoxaparin Sodium 30 MG/0.3 ML SYRINGE SC SCH (09:55)
[2020-07-24] MEDS: Cyanocobalamin (Vitamin B-12) 1,000 MCG TAB PO SCH (10:02)
[2020-07-24] MEDS: Polyvinyl Alcohol 1.4%/Povidone 0.6% Opth Drops EA EYE SCH ×2 (11:17→21:08)
--- NOTE | 2020-07-24 11:59 | PDOC.NEUPN ---
- Subjective Encounter Date: 07/24/20 Subjective: Mr. Ingram seems to be upset today and refused to tell his name or follow any commands. - Objective Vital Signs & Weight: Vital Signs (12 hours) Temp Pulse Resp BP Pulse Ox 07/24/20 07:58 97.3 F L 60 20 151/67 H 93 L Weight Weight 142 lb I&O: 07/23/20 07/24/20 07/25/20 07:59 06:59 06:59 Intake Total Output Total Balance Result Diagrams: 07/24/20 04:44 07/24/20 04:44 Additional Labs: Accuchecks 07/24/20 07/24/20 07/23/20 06:16 00:07 18:08 POC Glucose 79 83 93 07/23/20 14:40 POC Glucose 84 Radiology Reviewed by me: Yes EKG Reviewed by me: Yes ROS - Review of Systems ROS unobtainable: due to mental status - Medication Medications: Active Medications Generic Name Dose Route Start Last Admin Trade Name Freq PRN Reason Stop Dose Admin Aspirin 300 mg 07/22/20 15:00 07/23/20 14:29 Aspirin 300 Mg Suppository [place] 300 mg Q24HR DAYNA Administration Atorvastatin Calcium 40 mg 07/22/20 21:00 07/23/20 21:07 Atorvastatin Calcium 40 Mg Tab PO Not Given HS DAYNA Cyanocobalamin 1,000 mcg 07/23/20 09:00 07/24/20 10:02 Cyanocobalamin (Vitamin B-12) 1,000 Mcg Tab PO Not Given DAILY DAYNA Enoxaparin Sodium 30 mg 07/23/20 09:00 07/24/20 09:55 Enoxaparin Sodium 30 Mg/0.3 Ml Syringe SC 30 mg 0900 DAYNA Administration Levetiracetam 500 mg/ Device 100 mls @ 200 mls/hr 07/23/20 09:00 07/24/20 09:55 IVPB 100 mls BID DAYNA Administration Dextrose/Sodium Chloride 1,000 mls @ 50 mls/hr 07/22/20 22:48 07/24/20 05:09 D5 0.9% Ns IV 1,000 mls .Q20H DAYNA Administration Metoprolol Tartrate 6.25 mg 07/22/20 21:00 07/24/20 11:17 Metoprolol Tartrate 25 Mg Tab PO Not Given BID DAYNA Polyvinyl Alcohol/Povidone 0 each 07/22/20 21:00 07/24/20 11:17 Polyvinyl Alcohol 1.4%/Povidone 0.6% Opth Drops EA EYE Not Given BID DAYNA Sodium Chloride 10 ml 07/22/20 09:40 07/23/20 21:07 Flush - Normal Saline 10 Ml Syringe IVF 10 ml PRN PRN Administration Saline Flush - Exam General Appearance: NAD Eye: PERRL ENT: normocephalic atraumatic Neck: supple Respiratory: CTAB Cardiovascular: RRR Gastrointestinal: soft Extremities: no cyanosis Skin: normal turgor Neurological: no new deficit Musculoskeletal: normal tone, no muscle wasting PSYCH: not oriented Results - Labs Result Diagrams: 07/24/20 04:44 07/24/20 04:44 Lab results: WBC 6.3 thou/uL (4.8-10.8) 07/24/20 04:44 Hgb 12.0 g/dL (14.0-18.0) L 07/24/20 04:44 Hct 35.7 % (42.0-52.0) L 07/24/20 04:44 MCV 94.7 fL (78.0-98.0) 07/24/20 04:44 Plt Count 155 thou/uL (130-400) 07/24/20 04:44 Neutrophils % 55.7 % (42.0-75.0) 07/24/20 04:44 Sodium 142 mmol/L (136-145) 07/24/20 04:44 Potassium 4.1 mmol/L (3.5-5.1) 07/24/20 04:44 Chloride 113 mmol/L (98-107) H 07/24/20 04:44 Carbon Dioxide 19 mmol/L (23-31) L 07/24/20 04:44 BUN 19 mg/dL (8.4-25.7) 07/24/20 04:44 Creatinine 1.62 mg/dL (0.7-1.3) H 07/24/20 04:44 Glucose 90 mg/dL (83-110) 07/24/20 04:44 Lactic Acid 0.9 mmol/L (0.5-2.2) 07/21/20 00:50 Calcium 9.1 mg/dL (7.8-10.44) 07/24/20 04:44 Total Bilirubin 0.5 mg/dL (0.2-1.2) 07/24/20 04:44 AST 21 U/L (5-34) 07/24/20 04:44 ALT 30 U/L (8-55) 07/24/20 04:44 Alkaline Phosphatase 97 U/L (40-110) 07/24/20 04:44 CK-MB (CK-2) 1.6 ng/mL (0-6.6) 07/21/20 04:07 Troponin I 0.220 ng/mL (< 0.028) H 07/21/20 07:16 B-Natriuretic Peptide 619.0 pg/mL (0-100) H 07/21/20 00:50 Serum Total Protein 6.5 g/dL (5.8-8.1) 07/24/20 04:44 Albumin 3.3 g/dL (3.4-4.8) L 07/24/20 04:44 Urine Ketones Negative mg/dL (Negative) 07/21/20 01:31 Urine Blood 1+ (Negative) A 07/21/20 01:31 Urine Nitrite Negative (Negative) 07/21/20 01:31 Ur Leukocyte Esterase Negative Erasto/uL (Negative) 07/21/20 01:31 Urine RBC 7-10 HPF (0-3) A 07/21/20 01:31 Urine WBC 0-3 HPF (0-3) 07/21/20 01:31 Ur Squamous Epith Cells None Seen HPF (0-3) 07/21/20 01:31 Urine Bacteria None Seen HPF (None Seen) 07/21/20 01:31 PN A/P (1) AMS (altered mental status) Code(s): R41.82 - ALTERED MENTAL STATUS, UNSPECIFIED Status: Acute Qualifiers: Altered mental status type: disorientation Qualified Code(s): R41.0 - Disorientation, unspecified (2) CAD (coronary artery disease) Code(s): I25.10 - ATHSCL HEART DISEASE OF [place] CORONARY ARTERY W/O ANG PCTRS Status: Chronic Qualifiers: Coronary Disease-Associated Artery/Lesion type: [place] artery [place] vs. transplanted heart: [place] heart Associated angina: without angina Qualified Code(s): I25.10 - Atherosclerotic heart disease of [place] coronary artery without angina pectoris (3) HLD (hyperlipidemia) Code(s): E78.5 - HYPERLIPIDEMIA, UNSPECIFIED Status: Acute (4) History of CVA (cerebrovascular accident) Code(s): Z86.73 - PRSNL HX OF TIA (TIA), AND CEREB INFRC W/O RESID DEFICITS Status: Chronic (5) NSTEMI (non-ST elevated myocardial infarction) Code(s): I21.4 - NON-ST ELEVATION (NSTEMI) MYOCARDIAL INFARCTION Status: Acute (6) New onset seizure Code(s): R56.9 - UNSPECIFIED CONVULSIONS Status: Acute (7) CKD (chronic kidney disease), stage III Code(s): N18.30 - CHRONIC KIDNEY DISEASE, STAGE 3 UNSPECIFIED Status: Chronic (8) Cardiomyopathy Code(s): I42.9 - CARDIOMYOPATHY, UNSPECIFIED Status: Chronic Qualifiers: Cardiomyopathy type: ischemic Qualified Code(s): I25.5 - Ischemic cardiomyopathy - Plan Daily Plan: PT/OT, speech therapy, DVT proph w/lovenox 89-year-old male with medical history significant for dementia and seizures presented to the hospital with altered mental status and an episode of staring at the snf. Most likely breakthrough seizure in the setting of progressive dementia with superimposed delirium. He seems to be upset today and declined to follow any commands. He remains c onfused at baseline. No further seizure-like activity reported by the staff since admission. EEG reviewed which was negative for seizure activity and no interval change when compared to the prior EEG. Continue Keppra 500 mg IV every 12 hours. Consider switching to p.o. once patient is able to tolerate oral intake. Neurochecks every 4 hours. Observe seizure precautions. Ativan 2 mg IV for seizure greater than 2 minutes. Telemetry Non-ST elevation MIconsider cardiology input Infectious and metabolic etiology should be ruled out Continue medical management per primary team PT/OT/speech. DVT prophylaxis. Plan discussed in detail with the nursing staff
[2020-07-24] MEDS ORDERED: Lorazepam 2 MG/ML VIAL SLOW IVP PRN (12:36)
[2020-07-24] MEDS: Aspirin 300 MG Suppository PR SCH (14:50)
[2020-07-24] MEDS: Haloperidol Lactate 5 MG/ML VIAL IM PRN ×2 (17:40→21:05)
[2020-07-24] MEDS: Atorvastatin Calcium 40 MG TAB PO SCH (21:08)
--- NOTE | 2020-07-25 09:52 | PDOC.FMACP ---
Advance Care Planning - Problem (1) Palliative care encounter Status: Acute Code(s): Z51.5 - ENCOUNTER FOR PALLIATIVE CARE (2) AMS (altered mental status) Status: Acute Code(s): R41.82 - ALTERED MENTAL STATUS, UNSPECIFIED Qualifiers: Altered mental status type: disorientation Qualified Code(s): R41.0 - Disorientation, unspecified (3) Cardiomyopathy Status: Chronic Code(s): I42.9 - CARDIOMYOPATHY, UNSPECIFIED Qualifiers: Cardiomyopathy type: ischemic Qualified Code(s): I25.5 - Ischemic cardiomyopathy (4) History of CVA (cerebrovascular accident) Status: Chronic Code(s): Z86.73 - PRSNL HX OF TIA (TIA), AND CEREB INFRC W/O RESID DEFICITS (5) NSTEMI (non-ST elevated myocardial infarction) Status: Acute Code(s): I21.4 - NON-ST ELEVATION (NSTEMI) MYOCARDIAL INFARCTION (6) New onset seizure Status: Acute Code(s): R56.9 - UNSPECIFIED CONVULSIONS - Note Participants: family, palliative care Summary: Palliative Care revisited Advanced Care Planning, patient was in facility a few weeks ago. The diagnosis, prognosis and goals of care were discussed. Appropriate forms and documentation to accomplish the goals of care were discussed. All questions were answered. Family is electing non aggressive measures, confirmed DNAR status and OOHDNAR. In previous conversation family was electing to not pursue aggressive measures. Will readdress Goal of Care related to Mr Ingram decline. Time Spent (mins): 20
--- NOTE | 2020-07-25 10:05 | PDOC.HOSPP ---
- Subjective Encounter Date: 07/25/20 Encounter Time: 10:04 non-verbal Subjective: Patient remains clinically about the same. He is sleepy and difficult to arouse today. Nursing staff reported that he was unable to eat anything overnight. His breakfast was also untouched. I had a discussion with patient's family yesterday evening and the plan for him to return back to the alf. They ultimately plan to place him on comfort care or hospice. - Objective Vital Signs & Weight: Vital Signs (12 hours) Temp Pulse Resp BP Pulse Ox 07/25/20 08:00 98.2 F 61 14 149/74 H 95 Weight Weight 142 lb I&O: 07/24/20 07/25/20 07/26/20 06:59 06:59 06:59 Intake Total Balance Result Diagrams: 07/24/20 04:44 07/24/20 04:44 Additional Labs: Accuchecks 07/25/20 07/25/20 07/24/20 06:01 00:35 21:05 POC Glucose 72 80 89 07/24/20 16:48 POC Glucose 88 Radiology Reviewed by me: Yes EKG Reviewed by me: Yes Hospitalist ROS - Review of Systems ROS unobtainable: due to mental status Constitutional: reports: weakness, malaise Neurological: reports: confusion - Medication Medications: Active Medications Generic Name Dose Route Start Last Admin Trade Name Freq PRN Reason Stop Dose Admin Aspirin 300 mg 07/22/20 15:00 07/24/20 14:50 Aspirin 300 Mg Suppository [place] 300 mg Q24HR DAYNA Administration Atorvastatin Calcium 40 mg 07/22/20 21:00 07/24/20 21:08 Atorvastatin Calcium 40 Mg Tab PO Not Given HS DAYNA Cyanocobalamin 1,000 mcg 07/23/20 09:00 07/24/20 10:02 Cyanocobalamin (Vitamin B-12) 1,000 Mcg Tab PO Not Given DAILY DAYNA Enoxaparin Sodium 30 mg 07/23/20 09:00 07/24/20 09:55 Enoxaparin Sodium 30 Mg/0.3 Ml Syringe SC 30 mg 0900 DAYNA Administration Haloperidol Lactate 2 mg 07/24/20 16:19 07/24/20 21:05 Haloperidol Lactate 5 Mg/Ml Vial IM 2 mg Q4H PRN Administration Agitation Levetiracetam 500 mg/ Device 100 mls @ 200 mls/hr 07/23/20 09:00 07/24/20 09:55 IVPB 100 mls BID DAYNA Administration Dextrose/Sodium Chloride 1,000 mls @ 50 mls/hr 07/22/20 22:48 07/24/20 21:10 D5 0.9% Ns IV 1,000 mls .Q20H DAYNA Administration Lorazepam 0.5 mg 07/24/20 12:36 07/24/20 13:25 Lorazepam 2 Mg/Ml Vial SLOW IVP 0.5 mg Q6H PRN Administration Anxiety/Agitation Metoprolol Tartrate 6.25 mg 07/22/20 21:00 07/24/20 21:08 Metoprolol Tartrate 25 Mg Tab PO Not Given BID DAYNA Polyvinyl Alcohol/Povidone 0 each 07/22/20 21:00 07/24/20 21:08 Polyvinyl Alcohol 1.4%/Povidone 0.6% Opth Drops EA EYE Not Given BID DAYNA Sodium Chloride 10 ml 07/22/20 09:40 07/24/20 21:07 Flush - Normal Saline 10 Ml Syringe IVF 10 ml PRN PRN Administration Saline Flush - Exam General Appearance: ill appearing ENT: normocephalic atraumatic, dry oral mucosa Neck: supple, no JVD, no lymphadenopathy Heart: RRR, no murmur, no gallops Respiratory: CTAB, normal chest expansion Gastrointestinal: soft, non-tender, non-distended, normal bowel sounds, no palpable masses, no hepatomegaly, no splenomegaly Neurological: no new deficit Musculoskeletal: generalized weakness Psychiatric: not oriented, somnolent, lethargic Hosp A/P (1) AMS (altered mental status) Code(s): R41.82 - ALTERED MENTAL STATUS, UNSPECIFIED Status: Acute Qualifiers: Altered mental status type: disorientation Qualified Code(s): R41.0 - Disorientation, unspecified Plan: No changes since admission. He remains pretty confused and disoriented. I discussed with the family yesterday about goals of care. They want to continue current management plan and hopefully return to the alf soon. (2) CAD (coronary artery disease) Code(s): I25.10 - ATHSCL HEART DISEASE OF [place] CORONARY ARTERY W/O ANG PCTRS Status: Chronic Qualifiers: Coronary Disease-Associated Artery/Lesion type: [place] artery [place] vs. transplanted heart: [place] heart Associated angina: without angina Qualified Code(s): I25.10 - Atherosclerotic heart disease of [place] coronary artery without angina pectoris (3) HLD (hyperlipidemia) Code(s): E78.5 - HYPERLIPIDEMIA, UNSPECIFIED Status: Acute (4) History of CVA (cerebrovascular accident) Code(s): Z86.73 - PRSNL HX OF TIA (TIA), AND CEREB INFRC W/O RESID DEFICITS Status: Chronic (5) CKD (chronic kidney disease), stage III Code(s): N18.30 - CHRONIC KIDNEY DISEASE, STAGE 3 UNSPECIFIED Status: Chronic (6) Cardiomyopathy Code(s): I42.9 - CARDIOMYOPATHY, UNSPECIFIED Status: Chronic Qualifiers: Cardiomyopathy type: ischemic Qualified Code(s): I25.5 - Ischemic cardiomyopathy - Plan #1. Toxic metabolic encephalopathy. Likely combination of electrolyte derangements versus dementia. Seizures cannot be excluded. He does have a prior history of seizures. He has been on Keppra. We appreciate neurologist ongoing evaluation. 07/24/2020. Patient remains clinically the same with no appreciable change overnight. He will continue the same clinical management. We will begin the process of discharge planning. He will likely be discharged back to his alf. 07/25/2020. He remains clinically the same. He finally got some sleep overnight but he was still very somnolent this morning when I visited. We will continue supportive care. #2. History of seizures. Continue Keppra per neurology recommendations. 3. Coronary artery disease. He was evaluated earlier by cardiology and they recommend medical management at this time. There are no further interventions planned. 07/24/2020. Continue medical management. No planned cardiac intervention. 4. Dysphagia Speech therapist evaluation is ongoing. We will defer to them about further recommendations. 07/24/2020. We will continue dietary recommendations as above. This patient's prognosis is guarded at best. We will discuss with family about goals of care. I am going to recommend comfort care.
--- NOTE | 2020-07-25 13:23 | PDOC.NEUPN ---
- Subjective Encounter Date: 07/25/20 Subjective: Mr. Ingram continues to remain confused and agitated. He does not follow commands or maintain any eye contact - Objective Vital Signs & Weight: Vital Signs (12 hours) Temp Pulse Resp BP Pulse Ox 07/25/20 08:00 98.2 F 61 14 149/74 H 95 Weight Weight 142 lb I&O: 07/24/20 07/25/20 07/26/20 06:59 06:59 06:59 Intake Total Balance Result Diagrams: 07/24/20 04:44 07/24/20 04:44 Additional Labs: Accuchecks 07/25/20 07/25/20 07/24/20 06:01 00:35 21:05 POC Glucose 72 80 89 07/24/20 16:48 POC Glucose 88 Radiology Reviewed by me: Yes EKG Reviewed by me: Yes ROS - Review of Systems ROS unobtainable: due to mental status - Medication Medications: Active Medications Generic Name Dose Route Start Last Admin Trade Name Freq PRN Reason Stop Dose Admin Aspirin 300 mg 07/22/20 15:00 07/24/20 14:50 Aspirin 300 Mg Suppository [place] 300 mg Q24HR DAYNA Administration Atorvastatin Calcium 40 mg 07/22/20 21:00 07/24/20 21:08 Atorvastatin Calcium 40 Mg Tab PO Not Given HS DAYNA Cyanocobalamin 1,000 mcg 07/23/20 09:00 07/24/20 10:02 Cyanocobalamin (Vitamin B-12) 1,000 Mcg Tab PO Not Given DAILY DAYNA Enoxaparin Sodium 30 mg 07/23/20 09:00 07/24/20 09:55 Enoxaparin Sodium 30 Mg/0.3 Ml Syringe SC 30 mg 0900 DAYNA Administration Haloperidol Lactate 2 mg 07/24/20 16:19 07/24/20 21:05 Haloperidol Lactate 5 Mg/Ml Vial IM 2 mg Q4H PRN Administration Agitation Dextrose/Sodium Chloride 1,000 mls @ 50 mls/hr 07/22/20 22:48 07/24/20 21:10 D5 0.9% Ns IV 1,000 mls .Q20H DAYNA Administration Lorazepam 0.5 mg 07/24/20 12:36 07/24/20 13:25 Lorazepam 2 Mg/Ml Vial SLOW IVP 0.5 mg Q6H PRN Administration Anxiety/Agitation Metoprolol Tartrate 6.25 mg 07/22/20 21:00 07/24/20 21:08 Metoprolol Tartrate 25 Mg Tab PO Not Given BID DAYNA Polyvinyl Alcohol/Povidone 0 each 07/22/20 21:00 07/24/20 21:08 Polyvinyl Alcohol 1.4%/Povidone 0.6% Opth Drops EA EYE Not Given BID DAYNA Sodium Chloride 10 ml 07/22/20 09:40 07/24/20 21:07 Flush - Normal Saline 10 Ml Syringe IVF 10 ml PRN PRN Administration Saline Flush - Exam General Appearance: ill appearing Eye: PERRL ENT: normocephalic atraumatic Neck: supple Respiratory: CTAB Cardiovascular: RRR Gastrointestinal: soft Extremities: no cyanosis Skin: normal turgor Neurological: no new deficit PSYCH: somnolent, lethargic Results - Labs Result Diagrams: 07/24/20 04:44 07/24/20 04:44 Lab results: WBC 6.3 thou/uL (4.8-10.8) 07/24/20 04:44 Hgb 12.0 g/dL (14.0-18.0) L 07/24/20 04:44 Hct 35.7 % (42.0-52.0) L 07/24/20 04:44 MCV 94.7 fL (78.0-98.0) 07/24/20 04:44 Plt Count 155 thou/uL (130-400) 07/24/20 04:44 Neutrophils % 55.7 % (42.0-75.0) 07/24/20 04:44 Sodium 142 mmol/L (136-145) 07/24/20 04:44 Potassium 4.1 mmol/L (3.5-5.1) 07/24/20 04:44 Chloride 113 mmol/L (98-107) H 07/24/20 04:44 Carbon Dioxide 19 mmol/L (23-31) L 07/24/20 04:44 BUN 19 mg/dL (8.4-25.7) 07/24/20 04:44 Creatinine 1.62 mg/dL (0.7-1.3) H 07/24/20 04:44 Glucose 90 mg/dL (83-110) 07/24/20 04:44 Lactic Acid 0.9 mmol/L (0.5-2.2) 07/21/20 00:50 Calcium 9.1 mg/dL (7.8-10.44) 07/24/20 04:44 Total Bilirubin 0.5 mg/dL (0.2-1.2) 07/24/20 04:44 AST 21 U/L (5-34) 07/24/20 04:44 ALT 30 U/L (8-55) 07/24/20 04:44 Alkaline Phosphatase 97 U/L (40-110) 07/24/20 04:44 CK-MB (CK-2) 1.6 ng/mL (0-6.6) 07/21/20 04:07 Troponin I 0.220 ng/mL (< 0.028) H 07/21/20 07:16 B-Natriuretic Peptide 619.0 pg/mL (0-100) H 07/21/20 00:50 Serum Total Protein 6.5 g/dL (5.8-8.1) 07/24/20 04:44 Albumin 3.3 g/dL (3.4-4.8) L 07/24/20 04:44 Urine Ketones Negative mg/dL (Negative) 07/21/20 01:31 Urine Blood 1+ (Negative) A 07/21/20 01:31 Urine Nitrite Negative (Negative) 07/21/20 01:31 Ur Leukocyte Esterase Negative Erasto/uL (Negative) 07/21/20 01:31 Urine RBC 7-10 HPF (0-3) A 07/21/20 01:31 Urine WBC 0-3 HPF (0-3) 07/21/20 01:31 Ur Squamous Epith Cells None Seen HPF (0-3) 07/21/20 01:31 Urine Bacteria None Seen HPF (None Seen) 07/21/20 01:31 - Radiology Interpretation CT scan - head Additional Comment: Head CT negative for acute intracranial pathology PN A/P (1) AMS (altered mental status) Code(s): R41.82 - ALTERED MENTAL STATUS, UNSPECIFIED Status: Acute Qualifiers: Altered mental status type: disorientation Qualified Code(s): R41.0 - Disorientation, unspecified (2) CAD (coronary artery disease) Code(s): I25.10 - ATHSCL HEART DISEASE OF [place] CORONARY ARTERY W/O ANG PCTRS Status: Chronic Qualifiers: Coronary Disease-Associated Artery/Lesion type: [place] artery [place] vs. transplanted heart: [place] heart Associated angina: without angina Qualified Code(s): I25.10 - Atherosclerotic heart disease of [place] coronary artery without angina pectoris (3) HLD (hyperlipidemia) Code(s): E78.5 - HYPERLIPIDEMIA, UNSPECIFIED Status: Acute (4) History of CVA (cerebrovascular accident) Code(s): Z86.73 - PRSNL HX OF TIA (TIA), AND CEREB INFRC W/O RESID DEFICITS Status: Chronic (5) NSTEMI (non-ST elevated myocardial infarction) Code(s): I21.4 - NON-ST ELEVATION (NSTEMI) MYOCARDIAL INFARCTION Status: Acute (6) New onset seizure Code(s): R56.9 - UNSPECIFIED CONVULSIONS Status: Acute (7) CKD (chronic kidney disease), stage III Code(s): N18.30 - CHRONIC KIDNEY DISEASE, STAGE 3 UNSPECIFIED Status: Chronic (8) Cardiomyopathy Code(s): I42.9 - CARDIOMYOPATHY, UNSPECIFIED Status: Chronic Qualifiers: Cardiomyopathy type: ischemic Qualified Code(s): I25.5 - Ischemic cardiomyopathy - Plan Daily Plan: PT/OT, speech therapy, DVT proph w/SCDs 89-year-old male with medical history significant for dementia and seizures presented to the hospital with altered mental status and an episode of staring at the [facility]. Most likely breakthrough seizure in the setting of progressive dementia with superimposed delirium. He needs to remain agitated and confused at baseline. No further seizure-like activity reported by the staff since admission. EEG reviewed which was negative for seizure activity and no interval change when compared to the prior EEG. Patient continues to be agitated and has behavioral issues so discontinue Keppra. Start Depakote to 50 mg IV every 8. Check Depakote level in a.m. Neurochecks every 4 hours. Observe seizure precautions. Ativan 2 mg IV for seizure greater than 2 minutes. Telemetry Non-ST elevation MIaudiology on board Continue medical management per primary team PT/OT/speech. DVT prophylaxis. Case management on board regarding discharge planning Plan discussed in detail during the MDR rounds
[2020-07-25] MEDS: Enoxaparin Sodium 30 MG/0.3 ML SYRINGE SC SCH ×2 (14:36→14:56)
[2020-07-25] MEDS: Valproate Sodium 250 MG in Sodium Chloride 0.9% 100 ML IVPB SCH (14:36)
[2020-07-25] MEDS: Aspirin 300 MG Suppository PR SCH ×2 (14:37→14:56)
[2020-07-25] MEDS: Polyvinyl Alcohol 1.4%/Povidone 0.6% Opth Drops EA EYE SCH (14:55)
[2020-07-25] MEDS: Cyanocobalamin (Vitamin B-12) 1,000 MCG TAB PO SCH (14:55)
[2020-07-25] MEDS: Metoprolol Tartrate 25 MG TAB PO SCH (14:55)
[2020-07-25] MEDS: Dextrose 5 % And 0.9 % NaCl 1,000 ML IV SCH (21:00)
[2020-07-26] MEDS: Atorvastatin Calcium 40 MG TAB PO SCH ×2 (03:45→21:55)
[2020-07-26] MEDS: Valproate Sodium 250 MG in Sodium Chloride 0.9% 100 ML IVPB SCH ×4 (03:45→21:46)
[2020-07-26] MEDS: Metoprolol Tartrate 25 MG TAB PO SCH ×4 (03:45→21:56)
[2020-07-26] MEDS: Polyvinyl Alcohol 1.4%/Povidone 0.6% Opth Drops EA EYE SCH ×3 (03:45→21:56)
[2020-07-26] MEDS: Dextrose 5 % And 0.9 % NaCl 1,000 ML IV SCH ×2 (06:18→16:29)
[2020-07-26] MEDS: Enoxaparin Sodium 30 MG/0.3 ML SYRINGE SC SCH (09:51)
[2020-07-26] MEDS: Cyanocobalamin (Vitamin B-12) 1,000 MCG TAB PO SCH ×2 (09:51→10:02)
[2020-07-26] MEDS ORDERED: Dextrose 50% Abboject 50 ML SYRINGE ONE (12:15)
--- NOTE | 2020-07-26 12:30 | PDOC.NEUPN ---
- Subjective Encounter Date: 07/26/20 Subjective: Mr. Ingram is much more calm today but still confused at baseline - Objective Vital Signs & Weight: Vital Signs (12 hours) Temp Pulse Resp BP BP Pulse Ox 07/26/20 11:45 97.6 F 60 16 140/66 95 07/26/20 11:34 97.6 F 60 16 140/66 95 07/26/20 07:15 97.9 F 60 16 138/61 94 L Weight Weight 142 lb Result Diagrams: 07/24/20 04:44 07/24/20 04:44 Additional Labs: Accuchecks 07/26/20 07/26/20 07/25/20 06:08 00:23 17:31 POC Glucose 65 L 76 76 Radiology Reviewed by me: Yes EKG Reviewed by me: Yes ROS - Review of Systems ROS unobtainable: due to mental status - Medication Medications: Active Medications Generic Name Dose Route Start Last Admin Trade Name Freq PRN Reason Stop Dose Admin Aspirin 300 mg 07/22/20 15:00 07/25/20 14:56 Aspirin 300 Mg Suppository IN Not Given Q24HR DAYNA Atorvastatin Calcium 40 mg 07/22/20 21:00 07/26/20 03:45 Atorvastatin Calcium 40 Mg Tab PO Not Given HS DAYNA Cyanocobalamin 1,000 mcg 07/23/20 09:00 07/26/20 10:02 Cyanocobalamin (Vitamin B-12) 1,000 Mcg Tab PO Not Given DAILY DAYNA Enoxaparin Sodium 30 mg 07/23/20 09:00 07/26/20 09:51 Enoxaparin Sodium 30 Mg/0.3 Ml Syringe SC 30 mg 0900 DAYNA Administration Haloperidol Lactate 2 mg 07/24/20 16:19 07/24/20 21:05 Haloperidol Lactate 5 Mg/Ml Vial IM 2 mg Q4H PRN Administration Agitation Dextrose/Sodium Chloride 1,000 mls @ 50 mls/hr 07/22/20 22:48 07/26/20 06:18 D5 0.9% Ns IV 1,000 mls .Q20H DAYNA Administration Valproic Acid 250 mg/ Sodium 102.5 mls @ 102.5 mls/hr 07/25/20 14:00 07/26/20 06:18 Chloride IVPB 102.5 mls Q8HR DAYNA Administration Lorazepam 0.5 mg 07/24/20 12:36 07/24/20 13:25 Lorazepam 2 Mg/Ml Vial SLOW IVP 0.5 mg Q6H PRN Administration Anxiety/Agitation Metoprolol Tartrate 6.25 mg 07/22/20 21:00 07/26/20 10:02 Metoprolol Tartrate 25 Mg Tab PO Not Given BID DAYNA Polyvinyl Alcohol/Povidone 0 each 07/22/20 21:00 07/26/20 09:52 Polyvinyl Alcohol 1.4%/Povidone 0.6% Opth Drops EA EYE Not Given BID DAYNA Sodium Chloride 10 ml 07/22/20 09:40 07/24/20 21:07 Flush - Normal Saline 10 Ml Syringe IVF 10 ml PRN PRN Administration Saline Flush - Exam General Appearance: ill appearing Eye: PERRL ENT: normocephalic atraumatic Neck: supple Respiratory: CTAB Cardiovascular: RRR Gastrointestinal: soft Extremities: no cyanosis Skin: normal turgor Neurological: no focal deficits, no new deficit Musculoskeletal: normal tone, no muscle wasting PSYCH: not oriented Results - Labs Result Diagrams: 07/24/20 04:44 07/24/20 04:44 Lab results: WBC 6.3 thou/uL (4.8-10.8) 07/24/20 04:44 Hgb 12.0 g/dL (14.0-18.0) L 07/24/20 04:44 Hct 35.7 % (42.0-52.0) L 07/24/20 04:44 MCV 94.7 fL (78.0-98.0) 07/24/20 04:44 Plt Count 155 thou/uL (130-400) 07/24/20 04:44 Neutrophils % 55.7 % (42.0-75.0) 07/24/20 04:44 Sodium 142 mmol/L (136-145) 07/24/20 04:44 Potassium 4.1 mmol/L (3.5-5.1) 07/24/20 04:44 Chloride 113 mmol/L (98-107) H 07/24/20 04:44 Carbon Dioxide 19 mmol/L (23-31) L 07/24/20 04:44 BUN 19 mg/dL (8.4-25.7) 07/24/20 04:44 Creatinine 1.62 mg/dL (0.7-1.3) H 07/24/20 04:44 Glucose 90 mg/dL (83-110) 07/24/20 04:44 Lactic Acid 0.9 mmol/L (0.5-2.2) 07/21/20 00:50 Calcium 9.1 mg/dL (7.8-10.44) 07/24/20 04:44 Total Bilirubin 0.5 mg/dL (0.2-1.2) 07/24/20 04:44 AST 21 U/L (5-34) 07/24/20 04:44 ALT 30 U/L (8-55) 07/24/20 04:44 Alkaline Phosphatase 97 U/L (40-110) 07/24/20 04:44 CK-MB (CK-2) 1.6 ng/mL (0-6.6) 07/21/20 04:07 Troponin I 0.220 ng/mL (< 0.028) H 07/21/20 07:16 B-Natriuretic Peptide 619.0 pg/mL (0-100) H 07/21/20 00:50 Serum Total Protein 6.5 g/dL (5.8-8.1) 07/24/20 04:44 Albumin 3.3 g/dL (3.4-4.8) L 07/24/20 04:44 Urine Ketones Negative mg/dL (Negative) 07/21/20 01:31 Urine Blood 1+ (Negative) A 07/21/20 01:31 Urine Nitrite Negative (Negative) 07/21/20 01:31 Ur Leukocyte Esterase Negative Erasto/uL (Negative) 07/21/20 01:31 Urine RBC 7-10 HPF (0-3) A 07/21/20 01:31 Urine WBC 0-3 HPF (0-3) 07/21/20 01:31 Ur Squamous Epith Cells None Seen HPF (0-3) 07/21/20 01:31 Urine Bacteria None Seen HPF (None Seen) 07/21/20 01:31 - EKG Interpretation EKG: Normal sinus rhythm - Radiology Interpretation MRI - head Additional Comment: MRI of the brain did not reveal any acute intracranial pathology PN A/P (1) AMS (altered mental status) Code(s): R41.82 - ALTERED MENTAL STATUS, UNSPECIFIED Status: Acute Qualifiers: Altered mental status type: disorientation Qualified Code(s): R41.0 - Disorientation, unspecified (2) CAD (coronary artery disease) Code(s): I25.10 - ATHSCL HEART DISEASE OF [place] CORONARY ARTERY W/O ANG PCTRS Status: Chronic Qualifiers: Coronary Disease-Associated Artery/Lesion type: [place] artery [place] vs. transplanted heart: [place] heart Associated angina: without angina Qualified Code(s): I25.10 - Atherosclerotic heart disease of [place] coronary artery without angina pectoris (3) HLD (hyperlipidemia) Code(s): E78.5 - HYPERLIPIDEMIA, UNSPECIFIED Status: Acute (4) History of CVA (cerebrovascular accident) Code(s): Z86.73 - PRSNL HX OF TIA (TIA), AND CEREB INFRC W/O RESID DEFICITS Status: Chronic (5) NSTEMI (non-ST elevated myocardial infarction) Code(s): I21.4 - NON-ST ELEVATION (NSTEMI) MYOCARDIAL INFARCTION Status: Acute (6) New onset seizure Code(s): R56.9 - UNSPECIFIED CONVULSIONS Status: Acute (7) CKD (chronic kidney disease), stage III Code(s): N18.30 - CHRONIC KIDNEY DISEASE, STAGE 3 UNSPECIFIED Status: Chronic (8) Cardiomyopathy Code(s): I42.9 - CARDIOMYOPATHY, UNSPECIFIED Status: Chronic Qualifiers: Cardiomyopathy type: ischemic Qualified Code(s): I25.5 - Ischemic cardiomyopathy - Plan Daily Plan: PT/OT, speech therapy, DVT proph w/SCDs 89-year-old male with medical history significant for dementia and seizures presented to the hospital with altered mental status and an episode of [facility] at the [facility]. Most likely breakthrough seizure. No further seizure-like activity reported by the staff since admission. Patient seems calm after the initiation of Depakote but still confused at baseline. Progressive baseline dementia dementia with superimposed delirium may play a role in altered mental status in his case Continue Depakote to 250 mg IV every 8 hours. Will switch to p.o. once patient is able to tolerate oral intake N.p.o. till cleared by speech EEG reviewed which was negative for seizure activity and no interval change when compared to the prior EEG. Neurochecks every 4 hours. Observe seizure precautions. Ativan 2 mg IV for seizure greater than 2 minutes. Telemetry Non-ST elevation MIcardiology on board PT/OT/speech. DVT prophylaxis. Case management on board regarding discharge planning Continue medical management per primary team
--- NOTE | 2020-07-26 12:59 | PDOC.PALPN ---
Palliative Progress Note - Subjective Intermittent restlessness, redirectable today. Improving intake. Confused at baseline. - Objective Vital Signs: Vital Signs - Most Recent Temp Pulse Resp BP Pulse Ox 97.6 F 60 16 140/66 95 07/26/20 11:45 07/26/20 11:45 07/26/20 11:45 07/26/20 11:45 07/26/20 11:45 - Physical Exam Constitutional: confusion, ill appearing HEENT: EOMI, moist MMs, sclera anicteric Respiratory: clear to auscultation bilateral, no rales, no wheezing, unlabored breathing Cardiovascular: RRR Gastrointestinal: soft, non-tender, positive bowel sounds, incontinent Musculoskeletal: no clubbing, pulses present, diffuse muscle atrophy Neurology: moves all 4 limbs Skin: cap refill <2 seconds, fragile - Assessment (1) Palliative care encounter Code(s): Z51.5 - ENCOUNTER FOR PALLIATIVE CARE Current Visit: Yes Status: Acute (2) AMS (altered mental status) Code(s): R41.82 - ALTERED MENTAL STATUS, UNSPECIFIED Current Visit: Yes Status: Acute Qualifiers: Altered mental status type: disorientation Qualified Code(s): R41.0 - Disorientation, unspecified (3) Cardiomyopathy Code(s): I42.9 - CARDIOMYOPATHY, UNSPECIFIED Current Visit: No Status: Chronic Qualifiers: Cardiomyopathy type: ischemic Qualified Code(s): I25.5 - Ischemic cardiomyopathy (4) History of CVA (cerebrovascular accident) Code(s): Z86.73 - PRSNL HX OF TIA (TIA), AND CEREB INFRC W/O RESID DEFICITS Cu rrent Visit: No Status: Chronic (5) NSTEMI (non-ST elevated myocardial infarction) Code(s): I21.4 - NON-ST ELEVATION (NSTEMI) MYOCARDIAL INFARCTION Current Visit: No Status: Acute (6) New onset seizure Code(s): R56.9 - UNSPECIFIED CONVULSIONS Current Visit: No Status: Acute - Plan Plan: Shyam to come complete OOHDNAR with [facility] registrar at 3-3:30 pm today. Transition to skilled facility with hospice overlay with [facility] Family understanding of prognosis and disease trajectory. Palliative Care will sign off as Goal of care addressed, OOHDNAR and DNAR complete or in process. [55] minutes spent on this encounter with >50% of the time in counseling and coordination of care. - ROS Non Response: due to mental status
--- NOTE | 2020-07-26 13:28 | PDOC.HOSPP ---
- Subjective Encounter Date: 07/26/20 Encounter Time: 13:27 Subjective: Patient actually is a lot more calm today. He knew his name. Nursing staff reported that he ate about 75% of his breakfast. He can probably transfer to longterm today on the hospice care. We will call his family to update them. - Objective Vital Signs & Weight: Vital Signs (12 hours) Temp Pulse Resp BP BP Pulse Ox 07/26/20 11:45 97.6 F 60 16 140/66 95 07/26/20 11:34 97.6 F 60 16 140/66 95 07/26/20 07:15 97.9 F 60 16 138/61 94 L Weight Weight 142 lb Result Diagrams: 07/24/20 04:44 07/24/20 04:44 Additional Labs: Accuchecks 07/26/20 07/26/20 07/26/20 13:14 06:08 00:23 POC Glucose 86 65 L 76 07/25/20 17:31 POC Glucose 76 Radiology Reviewed by me: Yes EKG Reviewed by me: Yes Hospitalist ROS - Review of Systems ROS unobtainable: due to mental status Neurological: reports: weakness, numbness, confusion - Medication Medications: Active Medications Generic Name Dose Route Start Last Admin Trade Name Freq PRN Reason Stop Dose Admin Aspirin 300 mg 07/22/20 15:00 07/25/20 14:56 Aspirin 300 Mg Suppository DC Not Given Q24HR DAYNA Atorvastatin Calcium 40 mg 07/22/20 21:00 07/26/20 03:45 Atorvastatin Calcium 40 Mg Tab PO Not Given HS DAYNA Cyanocobalamin 1,000 mcg 07/23/20 09:00 07/26/20 10:02 Cyanocobalamin (Vitamin B-12) 1,000 Mcg Tab PO Not Given DAILY DAYNA Enoxaparin Sodium 30 mg 07/23/20 09:00 07/26/20 09:51 Enoxaparin Sodium 30 Mg/0.3 Ml Syringe SC 30 mg 0900 DAYNA Administration Haloperidol Lactate 2 mg 07/24/20 16:19 07/24/20 21:05 Haloperidol Lactate 5 Mg/Ml Vial IM 2 mg Q4H PRN Administration Agitation Dextrose/Sodium Chloride 1,000 mls @ 50 mls/hr 07/22/20 22:48 07/26/20 06:18 D5 0.9% Ns IV 1,000 mls .Q20H DAYNA Administration Valproic Acid 250 mg/ Sodium 102.5 mls @ 102.5 mls/hr 07/25/20 14:00 07/26/20 06:18 Chloride IVPB 102.5 mls Q8HR DAYNA Administration Lorazepam 0.5 mg 07/24/20 12:36 07/24/20 13:25 Lorazepam 2 Mg/Ml Vial SLOW IVP 0.5 mg Q6H PRN Administration Anxiety/Agitation Metoprolol Tartrate 6.25 mg 07/22/20 21:00 07/26/20 10:02 Metoprolol Tartrate 25 Mg Tab PO Not Given BID DAYNA Polyvinyl Alcohol/Povidone 0 each 07/22/20 21:00 07/26/20 09:52 Polyvinyl Alcohol 1.4%/Povidone 0.6% Opth Drops EA EYE Not Given BID DAYNA Sodium Chloride 10 ml 07/22/20 09:40 07/24/20 21:07 Flush - Normal Saline 10 Ml Syringe IVF 10 ml PRN PRN Administration Saline Flush - Exam General Appearance: NAD, awake alert, ill appearing Eye: PERRL ENT: normocephalic atraumatic, moist mucosa Neck: supple, symmetric, no JVD, no lymphadenopathy Heart: RRR, normal peripheral pulses Respiratory: CTAB, no wheezes, no rales, normal chest expansion Gastrointestinal: soft, non-tender, non-distended, normal bowel sounds Neurological: cranial nerve grossly intact, normal sensation to touch, no wea kness Musculoskeletal: normal tone Psychiatric: normal affect, normal behavior, A&O x 3 Hosp A/P (1) AMS (altered mental status) Code(s): R41.82 - ALTERED MENTAL STATUS, UNSPECIFIED Status: Acute Qualifiers: Altered mental status type: disorientation Qualified Code(s): R41.0 - Disorientation, unspecified Plan: He seems back to his baseline. (2) CAD (coronary artery disease) Code(s): I25.10 - ATHSCL HEART DISEASE OF [place] CORONARY ARTERY W/O ANG PCTRS Status: Chronic Qualifiers: Coronary Disease-Associated Artery/Lesion type: [place] artery [place] vs. transplanted heart: [place] heart Associated angina: without angina Qualified Code(s): I25.10 - Atherosclerotic heart disease of [place] coronary artery without angina pectoris (3) HLD (hyperlipidemia) Code(s): E78.5 - HYPERLIPIDEMIA, UNSPECIFIED Status: Acute (4) History of CVA (cerebrovascular accident) Code(s): Z86.73 - PRSNL HX OF TIA (TIA), AND CEREB INFRC W/O RESID DEFICITS Status: Chronic (5) CKD (chronic kidney disease), stage III Code(s): N18.30 - CHRONIC KIDNEY DISEASE, STAGE 3 UNSPECIFIED Status: Chronic (6) Cardiomyopathy Code(s): I42.9 - CARDIOMYOPATHY, UNSPECIFIED Status: Chronic Qualifiers: Cardiomyopathy type: ischemic Qualified Code(s): I25.5 - Ischemic cardiomyopathy - Plan #1. Toxic metabolic encephalopathy. Likely combination of electrolyte derangements versus dementia. Seizures cannot be excluded. He does have a prior history of seizures. He has been on Keppra. We appreciate neurologist ongoing evaluation. 07/24/2020. Patient remains clinically the same with no appreciable change overnight. He will continue the same clinical management. We will begin the process of discharge planning. He will likely be discharged back to his longterm. 07/25/2020. He remains clinically the same. He finally got some sleep overnight but he was still very somnolent this morning when I visited. We will continue supportive care. 08/22/2020. Continue supportive care as above. #2. History of seizures. Continue Keppra per neurology recommendations. 3. Coronary artery disease. He was evaluated earlier by cardiology and they recommend medical management at this time. There are no further interventions planned. 07/24/2020. Continue medical management. No planned cardiac intervention. 4. Dysphagia Speech therapist evaluation is ongoing. We will defer to them about further recommendations. 07/24/2020. We will continue dietary recommendations as above. This patient's prognosis is guarded at best. We will discuss with family about goals of care. I am going to recommend comfort care.
[2020-07-26] MEDS: Aspirin 300 MG Suppository PR SCH (13:58)
[2020-07-27] MEDS: Dextrose 5 % And 0.9 % NaCl 1,000 ML IV SCH (02:40)
[2020-07-27] MEDS: Valproate Sodium 250 MG in Sodium Chloride 0.9% 100 ML IVPB SCH ×2 (06:16→14:41)
[2020-07-27] MEDS: Enoxaparin Sodium 30 MG/0.3 ML SYRINGE SC SCH (09:33)
[2020-07-27] MEDS: Metoprolol Tartrate 25 MG TAB PO SCH (09:36)
[2020-07-27] MEDS: Cyanocobalamin (Vitamin B-12) 1,000 MCG TAB PO SCH (09:38)
[2020-07-27] MEDS: Polyvinyl Alcohol 1.4%/Povidone 0.6% Opth Drops EA EYE SCH ×2 (09:39→09:40)
--- NOTE | 2020-07-27 11:34 | PDOC.NEUPN ---
- Subjective Encounter Date: 07/27/20 Subjective: Patient is alert and awake and speaking in 3 to word sentences. Speech is clear but he does not want to tell his name. - Objective Vital Signs & Weight: Vital Signs (12 hours) Temp Pulse Resp BP Pulse Ox 07/27/20 07:24 98.3 F 62 16 155/74 H 90 L Weight Weight 142 lb I&O: 07/26/20 07/27/20 07/28/20 06:59 06:59 06:59 Intake Total 600 Balance 600 Result Diagrams: 07/24/20 04:44 07/24/20 04:44 Additional Labs: Accuchecks 07/27/20 07/27/20 07/26/20 05:47 00:18 18:37 POC Glucose 63 L 62 L 82 07/26/20 07/26/20 07/25/20 13:14 12:13 13:46 POC Glucose 86 51 L* 79 Radiology Reviewed by me: Yes EKG Reviewed by me: Yes ROS - Review of Systems ROS unobtainable: due to mental status - Medication Medications: Active Medications Generic Name Dose Route Start Last Admin Trade Name Freq PRN Reason Stop Dose Admin Aspirin 300 mg 07/22/20 15:00 07/26/20 13:58 Aspirin 300 Mg Suppository [place] 300 mg Q24HR DAYNA Administration Atorvastatin Calcium 40 mg 07/22/20 21:00 07/26/20 21:55 Atorvastatin Calcium 40 Mg Tab PO Not Given HS DAYNA Cyanocobalamin 1,000 mcg 07/23/20 09:00 07/27/20 09:38 Cyanocobalamin (Vitamin B-12) 1,000 Mcg Tab PO 1,000 mcg DAILY DAYNA Administration Enoxaparin Sodium 30 mg 07/23/20 09:00 07/27/20 09:33 Enoxaparin Sodium 30 Mg/0.3 Ml Syringe SC 30 mg 0900 DAYNA Administration Haloperidol Lactate 2 mg 07/24/20 16:19 07/24/20 21:05 Haloperidol Lactate 5 Mg/Ml Vial IM 2 mg Q4H PRN Administration Agitation Dextrose/Sodium Chloride 1,000 mls @ 50 mls/hr 07/22/20 22:48 07/27/20 02:40 D5 0.9% Ns IV 1,000 mls .Q20H DAYNA Administration Valproic Acid 250 mg/ Sodium 102.5 mls @ 102.5 mls/hr 07/25/20 14:00 07/27/20 06:16 Chloride IVPB 102.5 mls Q8HR DAYNA Administration Lorazepam 0.5 mg 07/24/20 12:36 07/24/20 13:25 Lorazepam 2 Mg/Ml Vial SLOW IVP 0.5 mg Q6H PRN Administration Anxiety/Agitation Metoprolol Tartrate 6.25 mg 07/22/20 21:00 07/27/20 09:36 Metoprolol Tartrate 25 Mg Tab PO 6.25 mg BID DAYNA Administration Polyvinyl Alcohol/Povidone 0 each 07/22/20 21:00 07/27/20 09:40 Polyvinyl Alcohol 1.4%/Povidone 0.6% Opth Drops EA EYE Not Given BID DAYNA Sodium Chloride 10 ml 07/22/20 09:40 07/24/20 21:07 Flush - Normal Saline 10 Ml Syringe IVF 10 ml PRN PRN Administration Saline Flush - Exam General Appearance: awake alert Eye: PERRL ENT: normocephalic atraumatic Neck: supple Respiratory: CTAB Cardiovascular: RRR Gastrointestinal: soft Extremities: no cyanosis Skin: normal turgor Neurological: CN's grossly intact, no weakness, no focal deficits, no new deficit Musculoskeletal: normal tone, normal strength, no muscle wasting PSYCH: not oriented Results - Labs Result Diagrams: 07/24/20 04:44 07/24/20 04:44 Lab results: WBC 6.3 thou/uL (4.8-10.8) 07/24/20 04:44 Hgb 12.0 g/dL (14.0-18.0) L 07/24/20 04:44 Hct 35.7 % (42.0-52.0) L 07/24/20 04:44 MCV 94.7 fL (78.0-98.0) 07/24/20 04:44 Plt Count 155 thou/uL (130-400) 07/24/20 04:44 Neutrophils % 55.7 % (42.0-75.0) 07/24/20 04:44 Sodium 142 mmol/L (136-145) 07/24/20 04:44 Potassium 4.1 mmol/L (3.5-5.1) 07/24/20 04:44 Chloride 113 mmol/L (98-107) H 07/24/20 04:44 Carbon Dioxide 19 mmol/L (23-31) L 07/24/20 04:44 BUN 19 mg/dL (8.4-25.7) 07/24/20 04:44 Creatinine 1.62 mg/dL (0.7-1.3) H 07/24/20 04:44 Glucose 90 mg/dL (83-110) 07/24/20 04:44 Lactic Acid 0.9 mmol/L (0.5-2.2) 07/21/20 00:50 Calcium 9.1 mg/dL (7.8-10.44) 07/24/20 04:44 Total Bilirubin 0.5 mg/dL (0.2-1.2) 07/24/20 04:44 AST 21 U/L (5-34) 07/24/20 04:44 ALT 30 U/L (8-55) 07/24/20 04:44 Alkaline Phosphatase 97 U/L (40-110) 07/24/20 04:44 CK-MB (CK-2) 1.6 ng/mL (0-6.6) 07/21/20 04:07 Troponin I 0.220 ng/mL (< 0.028) H 07/21/20 07:16 B-Natriuretic Peptide 619.0 pg/mL (0-100) H 07/21/20 00:50 Serum Total Protein 6.5 g/dL (5.8-8.1) 07/24/20 04:44 Albumin 3.3 g/dL (3.4-4.8) L 07/24/20 04:44 Urine Ketones Negative mg/dL (Negative) 07/21/20 01:31 Urine Blood 1+ (Negative) A 07/21/20 01:31 Urine Nitrite Negative (Negative) 07/21/20 01:31 Ur Leukocyte Esterase Negative Erasto/uL (Negative) 07/21/20 01:31 Urine RBC 7-10 HPF (0-3) A 07/21/20 01:31 Urine WBC 0-3 HPF (0-3) 07/21/20 01:31 Ur Squamous Epith Cells None Seen HPF (0-3) 07/21/20 01:31 Urine Bacteria None Seen HPF (None Seen) 07/21/20 01:31 PN A/P (1) AMS (altered mental status) Code(s): R41.82 - ALTERED MENTAL STATUS, UNSPECIFIED Status: Acute Qualifiers: Altered mental status type: disorientation Qualified Code(s): R41.0 - Disorientation, unspecified (2) CAD (coronary artery disease) Code(s): I25.10 - ATHSCL HEART DISEASE OF [place] CORONARY ARTERY W/O ANG PCTRS Status: Chronic Qualifiers: Coronary Disease-Associated Artery/Lesion type: [place] artery [place] vs. transplanted heart: [place] heart Associated angina: without angina Qualified Code(s): I25.10 - Atherosclerotic heart disease of [place] coronary artery without angina pectoris (3) HLD (hyperlipidemia) Code(s): E78.5 - HYPERLIPIDEMIA, UNSPECIFIED Status: Acute (4) History of CVA (cerebrovascular accident) Code(s): Z86.73 - PRSNL HX OF TIA (TIA), AND CEREB INFRC W/O RESID DEFICITS Status: Chronic (5) NSTEMI (non-ST elevated myocardial infarction) Code(s): I21.4 - NON-ST ELEVATION (NSTEMI) MYOCARDIAL INFARCTION Status: Acute (6) New onset seizure Code(s): R56.9 - UNSPECIFIED CONVULSIONS Status: Acute (7) CKD (chronic kidney disease), stage III Code(s): N18.30 - CHRONIC KIDNEY DISEASE, STAGE 3 UNSPECIFIED Status: Chronic (8) Cardiomyopathy Code(s): I42.9 - CARDIOMYOPATHY, UNSPECIFIED Status: Chronic Qualifiers: Cardiomyopathy type: ischemic Qualified Code(s): I25.5 - Ischemic cardiomyopathy - Plan Daily Plan: PT/OT, speech therapy, DVT proph w/SCDs 89-year-old male with medical history significant for dementia and seizures presented to the hospital with altered mental status and an episode of staring at the custodial. Most likely breakthrough seizure. No further seizure-like activity reported by the staff since admission. Progressive baseline dementia with superimposed delirium playing a role in altered mental status in his case Continue Depakote to 250 mg IV every 8 hours. Will switch to p.o. once patient is able to tolerate oral intake Check Depakote level in a.m. EEG reviewed which was negative for seizure activity and no interval change when compared to the prior EEG. Neurochecks every 4 hours. Observe seizure precautions. Ativan 2 mg IV for seizure greater than 2 minutes. Telemetry Non-ST elevation MIcardiology on board PT/OT/speech. DVT prophylaxis. Case management on board regarding discharge planning Continue medical management per primary team Plan discussed in detail during the MDR rounds.
--- NOTE | 2020-07-27 14:16 | PDOC.HOSPP ---
- Subjective Encounter Date: 07/27/20 Encounter Time: 14:15 non-verbal Subjective: Patient was seen and evaluated. He remains clinically the same with no significant change. Nursing staff reported that he has been refusing his meals. Plan is for him to return to his custodial under hospice services. Family are working out the logistics with a custodial. - Objective Vital Signs & Weight: Vital Signs (12 hours) Temp Pulse Resp BP Pulse Ox 07/27/20 11:42 98.5 F 61 16 136/65 96 07/27/20 07:24 98.3 F 62 16 155/74 H 90 L Weight Weight 142 lb I&O: 07/26/20 07/27/20 07/28/20 06:59 06:59 06:59 Intake Total 600 Balance 600 Result Diagrams: 07/24/20 04:44 07/24/20 04:44 Additional Labs: Accuchecks 07/27/20 07/27/20 07/26/20 05:47 00:18 18:37 POC Glucose 63 L 62 L 82 07/26/20 07/25/20 12:13 13:46 POC Glucose 51 L* 79 Radiology Reviewed by me: Yes EKG Reviewed by me: Yes Hospitalist ROS - Review of Systems ROS unobtainable: due to mental status Constitutional: reports: weakness, malaise Gastrointestinal: reports: nausea Neurological: reports: weakness, confusion - Medication Medications: Active Medications Generic Name Dose Route Start Last Admin Trade Name Freq PRN Reason Stop Dose Admin Aspirin 300 mg 07/22/20 15:00 07/26/20 13:58 Aspirin 300 Mg Suppository [place] 300 mg Q24HR DAYNA Administration Atorvastatin Calcium 40 mg 07/22/20 21:00 07/26/20 21:55 Atorvastatin Calcium 40 Mg Tab PO Not Given HS DAYNA Cyanocobalamin 1,000 mcg 07/23/20 09:00 07/27/20 09:38 Cyanocobalamin (Vitamin B-12) 1,000 Mcg Tab PO 1,000 mcg DAILY DAYNA Administration Enoxaparin Sodium 30 mg 07/23/20 09:00 07/27/20 09:33 Enoxaparin Sodium 30 Mg/0.3 Ml Syringe SC 30 mg 0900 DAYNA Administration Haloperidol Lactate 2 mg 07/24/20 16:19 07/24/20 21:05 Haloperidol Lactate 5 Mg/Ml Vial IM 2 mg Q4H PRN Administration Agitation Dextrose/Sodium Chloride 1,000 mls @ 50 mls/hr 07/22/20 22:48 07/27/20 02:40 D5 0.9% Ns IV 1,000 mls .Q20H DAYNA Administration Valproic Acid 250 mg/ Sodium 102.5 mls @ 102.5 mls/hr 07/25/20 14:00 07/27/20 06:16 Chloride IVPB 102.5 mls Q8HR DAYNA Administration Lorazepam 0.5 mg 07/24/20 12:36 07/24/20 13:25 Lorazepam 2 Mg/Ml Vial SLOW IVP 0.5 mg Q6H PRN Administration Anxiety/Agitation Metoprolol Tartrate 6.25 mg 07/22/20 21:00 07/27/20 09:36 Metoprolol Tartrate 25 Mg Tab PO 6.25 mg BID DAYNA Administration Polyvinyl Alcohol/Povidone 0 each 07/22/20 21:00 07/27/20 09:40 Polyvinyl Alcohol 1.4%/Povidone 0.6% Opth Drops EA EYE Not Given BID DAYNA Sodium Chloride 10 ml 07/22/20 09:40 07/24/20 21:07 Flush - Normal Saline 10 Ml Syringe IVF 10 ml PRN PRN Administration Saline Flush - Exam General Appearance: awake alert, ill appearing Neck: supple, symmetric, no JVD, no lymphadenopathy Heart: RRR, no murmur, no gallops, no rubs, normal peripheral pulses Respiratory: CTAB, no wheezes, no rales, no ronchi, normal chest expansion, normal percussion Gastrointestinal: soft, non-tender, non-distended, normal bowel sounds, no palpable masses, no hepatomegaly, no splenomegaly Extremities: no cyanosis, no clubbing, no edema Neurological: no new deficit Neurological - other findings: very confused, doesnt follow commands Musculoskeletal: generalized weakness, diffuse muscle atrophy Psychiatric: not oriented, flat affect Hosp A/P (1) AMS (altered mental status) Code(s): R41.82 - ALTERED MENTAL STATUS, UNSPECIFIED Status: Acute Qualifiers: Altered mental status type: disorientation Qualified Code(s): R41.0 - Disorientation, unspecified (2) CAD (coronary artery disease) Code(s): I25.10 - ATHSCL HEART DISEASE OF [place] CORONARY ARTERY W/O ANG PCTRS Status: Chronic Qualifiers: Coronary Disease-Associated Artery/Lesion type: [place] artery [place] vs. transplanted heart: [place] heart Associated angina: without angina Qualified Code(s): I25.10 - Atherosclerotic heart disease of [place] coronary artery without angina pectoris (3) HLD (hyperlipidemia) Code(s): E78.5 - HYPERLIPIDEMIA, UNSPECIFIED Status: Acute (4) History of CVA (cerebrovascular accident) Code(s): Z86.73 - PRSNL HX OF TIA (TIA), AND CEREB INFRC W/O RESID DEFICITS Status: Chronic (5) CKD (chronic kidney disease), stage III Code(s): N18.30 - CHRONIC KIDNEY DISEASE, STAGE 3 UNSPECIFIED Status: Chronic (6) Cardiomyopathy Code(s): I42.9 - CARDIOMYOPATHY, UNSPECIFIED Status: Chronic Qualifiers: Cardiomyopathy type: ischemic Qualified Code(s): I25.5 - Ischemic cardiomyopathy - Plan #1. Toxic metabolic encephalopathy. Likely combination of electrolyte derangements versus dementia. Seizures cannot be excluded. He does have a prior history of seizures. He has been on Keppra. We appreciate neurologist ongoing evaluation. 07/24/2020. Patient remains clinically the same with no appreciable change overnight. He will continue the same clinical management. We will begin the process of discharge planning. He will likely be discharged back to his custodial. 07/25/2020. He remains clinically the same. He finally got some sleep overnight but he was still very somnolent this morning when I visited. We will continue supportive care. 07/26/2020. Continue supportive care as above. 07/27/20 No changes overnight. Continue supportive care. #2. History of seizures. Continue Keppra per neurology recommendations. 3. Coronary artery disease. He was evaluated earlier by cardiology and they recommend medical management at this time. There are no further interventions planned. 07/24/2020. Continue medical management. No planned cardiac intervention. 4. Dysphagia Speech therapist evaluation is ongoing. We will defer to them about further recommendations. 07/24/2020. We will continue dietary recommendations as above. This patient's prognosis is guarded at best. We will discuss with family about goals of care. I am going to recommend comfort care.
[2020-07-27] MEDS: Aspirin 300 MG Suppository PR SCH (14:41)
[2020-07-27] MEDS ORDERED: Dextrose 5 % And 0.9 % NaCl 1,000 ML IV SCH (14:45)
[2020-07-27 14:47] VITALS: BP 152/69; TEMP 98.1
--- NOTE | 2020-07-27 14:55 | PDOC.DS.DS ---
Provider - Provider Date of Admission: 07/22/20 14:33 Date of Discharge: 07/27/20 Admitting Provider: Ernst Barraza Consultations: Neurology Primary Care Physician: CATALINA CONTRERAS MD Course - Hospital Course Hospital Course: This is an 89-year-old patient who has severe dementia and has been a resident of a senior living following a fall that he sustained. He also was recently diagnosed with seizures. He has been on antiepileptic drugs. He was admitted to the hospital after senior living staff felt that he was acting different. Reportedly he is complained about some chest discomfort at some point. He was promptly hospitalized for further evaluation. He was seen by cardiology who recommended medical management. Neurology also saw him and he felt that this was a may be a breakthrough seizure episode. During the course of his stay patient remained very confused and disoriented. I was able to visit with the patient's family about the goals of care and they expressed their interest in patient returning to the senior living with comfort measures. He has been approved to return to the senior living and we will discharge him today. He will continue his routine home medications and I have not made any changes. Resuscitation Status: 07/22/20 16:32 Resuscitation Status Routine Co-Sign Provider: Resuscitation Status: DNAR: NO Resuscitation Discussed with: Patient son - Labs Lab Results: 07/24/20 04:44 07/24/20 04:44 - Physical Exam Vitals: Vital Signs (12 hours) Temp Pulse Resp BP Pulse Ox 07/27/20 14:45 98.1 F 60 16 152/69 H 93 L 07/27/20 11:42 98.5 F 61 16 136/65 96 07/27/20 07:24 98.3 F 62 16 155/74 H 90 L Weight Weight 142 lb Physical Exam: The patient was seen and examined on the day of discharge. Problem - Problem (1) AMS (altered mental status) Code(s): R41.82 - ALTERED MENTAL STATUS, UNSPECIFIED Status: Chronic Qualifiers: Altered mental status type: delirium Qualified Code(s): R41.0 - Disorientation, unspecified Plan: This is likely related to his dementia. Supportive care. (2) CAD (coronary artery disease) Code(s): I25.10 - ATHSCL HEART DISEASE OF [place] CORONARY ARTERY W/O ANG PCTRS Status: Chronic Qualifiers: Coronary Disease-Associated Artery/Lesion type: [place] artery [place] vs. transplanted heart: [place] heart Associated angina: without angina Qualified Code(s): I25.10 - Atherosclerotic heart disease of [place] coronary artery without angina pectoris (3) HLD (hyperlipidemia) Code(s): E78.5 - HYPERLIPIDEMIA, UNSPECIFIED Status: Acute (4) History of CVA (cerebrovascular accident) Code(s): Z86.73 - PRSNL HX OF TIA (TIA), AND CEREB INFRC W/O RESID DEFICITS Status: Chronic (5) CKD (chronic kidney disease), stage III Code(s): N18.30 - CHRONIC KIDNEY DISEASE, STAGE 3 UNSPECIFIED Status: Chronic (6) Cardiomyopathy Code(s): I42.9 - CARDIOMYOPATHY, UNSPECIFIED Status: Chronic Qualifiers: Cardiomyopathy type: ischemic Qualified Code(s): I25.5 - Ischemic cardiomyopathy Plan - Discharge Medications Home Medications: Medication Instructions Recorded Confirmed Type Acetaminophen [Tylenol Extra 500 mg PO Q6H PRN 07/03/20 07/21/20 History Strength] Aspirin [Ecotrin Low Strength] 81 mg PO DAILY 07/03/20 07/21/20 History Atorvastatin Calcium [Lipitor] 40 mg PO HS 07/03/20 07/21/20 History Cyanocobalamin (Vitamin B-12) 1,000 mcg PO DAILY 07/03/20 07/21/20 History [Vitamin B-12] levETIRAcetam [Keppra] 500 mg PO BID tab 07/07/20 07/21/20 Rx Carboxymethylcellulos/Glycerin 2 drop EA EYE BID 07/21/20 07/21/20 History [Refresh Optive Eye Drops] Metoprolol Tartrate [Lopressor] 6.25 mg PO BID 07/21/20 07/21/20 History Aspirin 300 mg NM Q24HR supp 07/27/20 Rx Allergies: No Known Allergies Allergy (Unverified 07/03/20 03:53) - Discharge Instructions Activity:: Activity as Tolerated Nourishment:: Heart Healthy Diet Therapies:: Occupational Therapy, Physical Therapy Equipment/Supplies:: Not Applicable IV Therapy:: Not Applicable - Follow up Plan Referrals: CATALINA CONTRERAS MD [Primary Care Provider] - Disposition: SNF FACILITY Quality - Care Measures CORE MEASURES:: N/A
--- NOTE | 2020-07-30 17:20 | EKG ---
Test Reason : Blood Pressure : / mmHG Vent. Rate : 062 BPM Atrial Rate : 045 BPM P-R Int : 000 ms QRS Dur : 190 ms QT Int : 494 ms P-R-T Axes : 000 -65 097 degrees QTc Int : 501 ms AV sequential or dual chamber electronic pacemaker Confirmed by BEATRIZ FARAH, ALESHA Chavez ([id number]), photographic editor VONDA LO ([id number]) on 07/30/2020 5:19:34 PM Referred By: Confirmed By:ALESHA HENDERSON MD
== END 2020-07-27 16:10 | DRG 100 ==
LOC: ERS 00:34 → 2SE 09:02 → OBSVTOIN 07-22 14:33
PROVIDERS: ADMIT Internal Medicine; ATTEND Hospitalist
DX: G40.909 Epilepsy, unspecified, not intractable, without status epilepticus (principal); I21.4 Non-ST elevation (NSTEMI) myocardial infarction; G92 Toxic encephalopathy; I13.0 Hypertensive heart and chronic kidney disease with heart failure and stage 1 through stage 4 chronic kidney disease, or unspecified chronic kidney disease; I50.22 Chronic systolic (congestive) heart failure; Z51.5 Encounter for palliative care; Z20.828 Contact with and (suspected) exposure to other viral communicable diseases; F03.90 Unspecified dementia, unspecified severity, without behavioral disturbance, psychotic disturbance, mood disturbance, and anxiety; I25.10 Atherosclerotic heart disease of native coronary artery without angina pectoris; Z66 Do not resuscitate; N18.30 Chronic kidney disease, stage 3 unspecified; I25.5 Ischemic cardiomyopathy; I44.0 Atrioventricular block, first degree; G93.89 Other specified disorders of brain; E78.5 Hyperlipidemia, unspecified; R13.10 Dysphagia, unspecified; I25.2 Old myocardial infarction; Z95.0 Presence of cardiac pacemaker; I69.991 Dysphagia following unspecified cerebrovascular disease
CPT/HCPCS: 36415; 36416; 51701; 70450; 80048; 80053; 81003; 81015; 82553; 82607; 82746; 83605; 83735; 83880; 84100; 84484; 85025; 87635; 93005; 95712; 95819; 95957; 96372; G0378; J1630; J1650; J1953; J2060; J3490; U0003